=== PATIENT | female | born 1935 | race Caucasian/White ===

== ENCOUNTER 2017-06-14 00:08 | Emergency (ER) | payer OTHER, BC ==
[2017-06-14 00:22] VITALS: BP 187/90; PULSE 70; TEMP 97.6; BMI 34.2
--- NOTE | 2017-06-14 00:42 | PDOC ---
History of Present Illness - General Chief Complaint: Laceration Stated Complaint: RIGHT LEG BLEEDING Time Seen by Provider: 06/14/17 00:39 - History of Present Illness Initial Comments: 06/14/17 00:39 Chief complaint bleeding to right ankle History of present illness: 82 years old past medical history significant for hypertension, prediabetes, not on any anticoagulation presents emergency department with bleeding to right ankle. Patient has had this problem before she states that she has very thin skin and varicose veins and sometimes after scratching she develops bleeding. She developed bleeding after scratching her right ankle this evening. Did not stop with time came to the emergency Department. Upon arrival to the emergency department bleeding is stopped. No dizziness lightheadedness no chest pain or shortness of breath symptoms were mild intermittent stopped with time. Past History - Past Medical History Allergies/Adverse Reactions: Allergies Allergy/AdvReac Type Severity Reaction Status Date / Time morphine AdvReac Mild Nausea Verified 06/14/17 00:20 Home Medications: Ambulatory Orders Aspirin [ASA -] 81 mg PO DAILY 05/14/13 Meclizine HCl [Antivert -] 25 mg PO PRN 05/14/13 Olmesartan/Hydrochlorothiazide [Benicar Hct 40-25 mg Tablet] 1 each PO DAILY 03/29 Omeprazole 40 mg PO DAILY 05/14/13 Trospium Chloride 20 mg PO BID 05/14/13 metFORMIN HCL [Glucophage -] 500 mg PO DAILY 05/14/13 Meclizine HCl [Antivert -] 25 mg PO BID #0 tablet 05/15/13 Metoprolol Succinate 100 mg PO DAILY 05/15/13 Diabetes: Yes (borderline no meds) HTN: Yes Hypercholesterolemia: Yes - Suicide/Smoking/Psychosocial Hx Smoking History: Never smoked Have you smoked in the past 12 months: No Information on smoking cessation initiated: No Hx Alcohol Use: No Drug/Substance Use Hx: No Substance Use Type: None Review of Systems - Review of Systems Comments:: 06/14/17 00:40 ROS: A complete review of 10 out of 10 review of systems is taken and is negative apart from what is previously mentioned below and in the HPI. *Physical Exam - Vital Signs Last Vital Signs Temp Pulse Resp BP Pulse Ox 97.6 F 70 18 187/90 96 06/14/17 00:20 06/14/17 00:20 06/14/17 00:20 06/14/17 00:20 06/14/17 00:20 - Physical Exam Comments: 06/14/17 00:40 Vitals: Triage Vital signs reviewed General Appearance: no acute distress, well nourished well developed, Cardiac: Regular rate and rhythym, no murmurs, no rubs, no gallops, Lungs: Clear to auscultation bilateral, good air movement bilaterally, Abdomen: Soft, non distended, normal bowel sounds, non tender to palpation Genitourinary: Rectal: Exam deferred Extremities: Full range of motion to all extremities, no cyanosis, clubbing, or edema Skin: Warm and dry, no rashes or lesions, dried blood noted to right ankle. No laceration. Very superficial abrasion to skin in the proximity of varicose veins. No active bleeding. Psych: normal mood, normal affect Medical Decision Making - Medical Decision Making 06/14/17 00:41 Bleeding stopped with no intervention. No indication for suturing at this time. Bacitracin gauze and slight pressure dressing placed. Patient instructed to leave on for 24 hours if rebleeding recurs they will try pressure dressing at home otherwise he'll return to the emergency department Findings, the need for follow-up and strict return instructions discussed with patient and family. *DC/Admit/Observation/Transfer Diagnosis at time of Disposition: Bleeding - Discharge Dispostion Disposition: HOME Condition at time of disposition: Improved Admit: No - Referrals - Patient Instructions Additional Instructions: If rebleeding occurs, apply pressure dressing as instructed. If it does not stop at that return to the emergency department, follow up with your doctor next week. Return to ED for any concerns. - Post Discharge Activity
== END 2017-06-14 01:00 | disposition home or self-care (01) ==
LOC: JER 00:08
DX: R23.3 Spontaneous ecchymoses (principal); I10 Essential (primary) hypertension; E11.9 Type 2 diabetes mellitus without complications; E78.00 Pure hypercholesterolemia, unspecified
CPT/HCPCS: 99281-25

== ENCOUNTER 2017-09-12 20:51 | Inpatient (IN) | payer OTHER, BC ==
--- NOTE | 2017-09-12 21:07 | PDOC ---
History of Present Illness - General History Source: Patient Exam Limitations: No Limitations - History of Present Illness Initial Comments: 09/12/17 21:27 The patient is a 82 year old female with a significant PMH of HLD, HTN, and borderline DM who presents to the emergency department with two day history of left leg swelling and recent lower back pain. The patient is complaining of erythema to the left leg and states the left leg swelling is worsening over the past two days. The patient denies any trauma to the left leg. Patient denies recent travel. The patient states she typically sits in her couch with minimal movement throughout the day. The patient is also complaining of lower back pain secondary to a surgery for her urinary incontinence. The patient denies chest pain, shortness of breath, headache and dizziness. Denies fever, chills, nausea, vomit, diarrhea and constipation. Denies dysuria, frequency, urgency and hematuria. Allergies: morphine Social history: No reported alcohol, drug, or cigarette use. <Carlie Abdalla - Last Filed: 09/12/17 21:49> <Lashay Bernal - Last Filed: 09/12/17 23:56> - General Stated Complaint: LEFT LEG SWELLING Time Seen by Provider: 09/12/17 21:05 Past History <Carlie Abdalla - Last Filed: 09/12/17 21:49> - Past Medical History Diabetes: Yes (borderline no meds) HTN: Yes Hypercholesterolemia: Yes - Suicide/Smoking/Psychosocial Hx Smoking History: Never smoked Have you smoked in the past 12 months: No Hx Alcohol Use: No Drug/Substance Use Hx: No Substance Use Type: None <Lashay Bernal - Last Filed: 09/12/17 23:56> - Past Medical History Allergies/Adverse Reactions: Allergies Allergy/AdvReac Type Severity Reaction Status Date / Time morphine AdvReac Mild Nausea Verified 09/12/17 21:08 Home Medications: Ambulatory Orders Aspirin [ASA -] 81 mg PO DAILY 05/14/13 Meclizine HCl [Antivert -] 25 mg PO PRN 05/14/13 Olmesartan/Hydrochlorothiazide [Benicar Hct 40-25 mg Tablet] 1 each PO DAILY 03/29 Omeprazole 40 mg PO DAILY 05/14/13 Trospium Chloride 20 mg PO BID 05/14/13 metFORMIN HCL [Glucophage -] 500 mg PO DAILY 05/14/13 Metoprolol Succinate 100 mg PO DAILY 05/15/13 Review of Systems - Review of Systems Able to Perform ROS?: Yes Comments:: 09/12/17 21:42 ADULT ROS GENERAL/CONSTITUTIONAL: No fever or chills. No weakness. HEAD, EYES, EARS, NOSE AND THROAT: No change in vision. No ear pain or discharge. No sore throat. CARDIOVASCULAR: No chest pain or shortness of breath. RESPIRATORY: No cough, wheezing, or hemoptysis. GASTROINTESTINAL: No nausea, vomiting, diarrhea or constipation. GENITOURINARY: No dysuria, frequency, or change in urination. MUSCULOSKELETAL: (+) Left leg swelling. (+) Lower back pain. No joint or muscle pain. No neck pain. SKIN: No rash NEUROLOGIC: No headache, vertigo, loss of consciousness, or change in strength/ sensation. ENDOCRINE: No increased thirst. No abnormal weight change. HEMATOLOGIC/LYMPHATIC: No anemia, easy bleeding, or history of blood clots. ALLERGIC/IMMUNOLOGIC: No hives or skin allergy. <Carlie Abdalla - Last Filed: 09/12/17 21:49> *Physical Exam - Physical Exam Comments: 09/12/17 21:43 ADULT EXAM GENERAL: Awake, alert, and fully oriented, in no acute distress HEAD: No signs of trauma EYES: PERRLA, EOMI, sclera anicteric, conjunctiva clear ENT: Auricles normal inspection, hearing grossly normal, nares patent, oropharynx clear without exudates. Moist mucosa NECK: Normal ROM, supple, no lymphadenopathy, JVD, or masses LUNGS: Breath sounds equal, clear to auscultation bilaterally. No wheezes, and no crackles HEART: Regular rate and rhythm, normal S1 and S2, no murmurs, rubs or gallops ABDOMEN: Soft, nontender, normoactive bowel sounds. No guarding, no rebound. No masses EXTREMITIES: (+) Left leg edema and erythema. Normal range of motion. No clubbing or cyanosis. No cord or tenderness NEUROLOGICAL: Cranial nerves II through XII grossly intact. Normal speech, normal gait SKIN: Warm, Dry, normal turgor, no rashes or lesions noted. <Carlie Abdalla - Last Filed: 09/12/17 21:49> ED Treatment Course - LABORATORY CBC & Chemistry Diagram: 09/12/17 22:53 09/12/17 22:53 <Lashay Bernal - Last Filed: 09/12/17 23:56> Medical Decision Making - Medical Decision Making 09/12/17 21:[address] Christiano Sierra (vascular surgery). <Carlie Abdalla - Last Filed: 09/12/17 21:49> - Medical Decision Making 09/12/17 23:[address] Sierra who tells me heparin drip for now. Consult request for Dr. Dinero tomorrow, as Dr Vázquez out of town. 09/12/17 23:56 Hospitalist aware of the patient, h want her to be on med surg obs. He will switch her to eliquis. <Lashay Bernal - Last Filed: 09/12/17 23:56> *DC/Admit/Observation/Transfer - Attestations Scribe Attestion: 09/12/17 21:46 Documentation prepared by Carlie Abdalla, acting as medical laboratory manager for Lashay Bernal MD. <Carlie Abdalla - Last Filed: 09/12/17 21:49> - Discharge Dispostion Decision to Admit order: Yes <Lashay Bernal - Last Filed: 09/12/17 23:56> Diagnosis at time of Disposition: Deep vein thrombosis (DVT) of popliteal vein of left lower extremity, Femoral vein, deep venous thrombosis - Discharge Dispostion Condition at time of disposition: Guarded - Referrals Referrals: Nahum Palacio MD [Primary Care Provider] -
[2017-09-12] MEDS ORDERED: HEPARIN NA (PORCINE) 5,000 UNITS/ML 1ML VIAL IVPUSH PRN (21:46)
[2017-09-12] MEDS ORDERED: HEPARIN NA (PORCINE) 5,000 UNITS/ML 1ML VIAL IVPUSH ONE (21:46)
[2017-09-12] MEDS ORDERED: HEPARIN - 25,000 UNIT in SODIUM CHLORIDE 495 ML IV SCH (22:00)
[2017-09-12] MEDS ORDERED: HEPARIN NA (PORCINE) 5,000 UNITS/ML 1ML VIAL ONE (22:33)
[2017-09-12] MEDS ORDERED: HEPARIN INFUSION - 25,000 UNITS/500 ML INFUS.BAG IVPB ONE (22:33)
[2017-09-12] MEDS ORDERED: morphine CARPU-JECT 2 MG/1 ML DISP.SYRIN IVPUSH ONE (22:51)
[2017-09-12 23:05] LABS: BASO % 0.4 % (0-2.0); EOS % 1.4 % (0-4.5); HEMATOCRIT 37.1 % (32.4-45.2); HEMOGLOBIN 12.5 GM/dL (10.7-15.3); LYMPH % 9.6 % (8-40); MCH 32.3 pg (25.7-33.7); MCHC 33.6 g/dl (32.0-36.0); MEAN PLT VOLUME 8.3 fl (7.5-11.1); MONO % 11.2 % (3.8-10.2); NEUT % 77.4 % (42.8-82.8); PLATELET COUNT 171 K/MM3 (134-434); RBC 3.87 M/mm3 (3.60-5.2); RDW 13.8 % (11.6-15.6); WHITE BLOOD COUNT 10.6 K/mm3 (4.0-10.0)
[2017-09-12] MEDS ORDERED: MORPHINE SULFATE 2 MG/ML VIAL ONE (23:07)
[2017-09-12 23:23] LABS: INR 1.14 (0.82-1.09); PROTHROMBIN TIME (PATIENT) 12.9 SEC (9.7-13.0)
[2017-09-12 23:26] LABS: ACTIVATED PTT 24.2 SECONDS (25.2-36.5)
[2017-09-12 23:30] LABS: ALBUMIN 3.7 g/dl (3.4-5.0); ANION GAP 9 (8-16); BILIRUBIN,TOTAL 0.9 mg/dL (0.2-1.0); BLOOD UREA NITROGEN 27 mg/dL (7-18); CHLORIDE 106 mmol/L (98-107); CO2 24 mmol/L (21-32); CREATININE 1.4 mg/dL (0.55-1.02); GLUCOSE,RANDOM 143 mg/dL (74-106); POTASSIUM 4.4 mmol/L (3.5-5.1); SGOT/AST 14 U/L (15-37); SGPT/ALT 19 U/L (12-78); SODIUM 139 mmol/L (136-145); TOT PROT 7.2 g/dl (6.4-8.2)
[2017-09-12 23:31] LABS: ALK PHOS 78 U/L (45-117)
--- NOTE | 2017-09-13 00:09 | HP ---
Admitting History and Physical - Primary Care Physician PCP: Nahum Palacio - Admission Chief Complaint: Left leg swelling History of Present Illness: 82F with HTN HLD DM2 p/w left leg swelling over past day. She has had difiiculty walking as well since the afternoon. Has had a DVT in the same leg about 20 years ago, treated short term coumadin. recently went to [facility] about [address] 3 wks ago. no sob or chest pain. 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 Cardiovascular: Yes: HTN Rheumatology: Yes: Fibromyalgia Endocrine: Yes: Diabetes Mellitus - Smoking History Smoking history: Never smoked Have you smoked in the past 12 months: No - Alcohol/Substance Use Hx Alcohol Use: No Home Medications - Allergies Allergies/Adverse Reactions: Allergies Allergy/AdvReac Type Severity Reaction Status Date / Time morphine AdvReac Mild Nausea Verified 09/12/17 21:08 - Home Medications Home Medications: Ambulatory Orders Aspirin [ASA -] 81 mg PO DAILY 05/14/13 Meclizine HCl [Antivert -] 25 mg PO PRN 05/14/13 Olmesartan/Hydrochlorothiazide [Benicar Hct 40-25 mg Tablet] 1 each PO DAILY 03/29 Omeprazole 40 mg PO DAILY 05/14/13 Trospium Chloride 20 mg PO BID 05/14/13 metFORMIN HCL [Glucophage -] 500 mg PO DAILY 05/14/13 Metoprolol Succinate 100 mg PO DAILY 05/15/13 Review of Systems - Review of Systems Constitutional: denies: No Symptoms, Chills, Diaphoresis, Fever, Lethargy, Loss of Appetite, Malaise, Night Sweats, Unintentional Wgt. Loss, Weakness, Other Eyes: denies: No Symptoms, Blind Spots, Blurred Vision, Double Vision, Eye Pain , Floaters, Photophobia, Recent Change in Vision, Other HENT: denies: No Symptoms, Difficult Swallowing, Ear Discharge, Ear Pain, Epistaxis, Gingival Bleeding, Hearing Loss, Mouth Swelling, Nasal Congestion, Ocular Prosthesis, Throat Pain, Toothache, Ringing in Ears, Other Neck: denies: No Symptoms, Decreased ROM, Lumps, Pain on Movement, Stiffness, Swollen Glands, Tenderness, Other Cardiovascular: denies: No Symptoms, Chest Pain, Edema, Palpitations, Shortness of Breath, Other Respiratory: denies: No Symptoms, Cough, Exercise Intolerance, Hemoptysis, Orthopnea, PND, Snoring, SOB, SOB on Exertion, Wheezing, Other Gastrointestinal: denies: No Symptoms, Abdominal Pain, Bloating, Constipation, Diarrhea, Dysphagia, Indigestion, Melena, Nausea, Rectal Bleeding, Vomiting, Vomiting Blood, Other Genitourinary: denies: No Symptoms, Burning, Discharge, Dysuria, Flank Pain, Frequency, Hematuria, Incontinence, Lesions, Menses, Pain, Testicular Mass, Testicular Pain, Testicular Swelling, Urgency, Vaginal Bleeding, Other Physical Examination Vital Signs: Vital Signs Temperature 99.3 F 09/12/17 20:51 Pulse Rate 67 09/12/17 20:51 Respiratory Rate 18 09/12/17 20:51 Blood Pressure 109/51 09/12/17 20:51 O2 Sat by Pulse Oximetry (%) 97 09/12/17 20:51 Constitutional: Yes: Well Nourished, No Distress, Calm Eyes: Yes: WNL, Conjunctiva Clear, EOM Intact HENT: Yes: Atraumatic, Normocephalic Neck: Yes: Supple Cardiovascular: Yes: Regular Rate and Rhythm, Varicosities Respiratory: Yes: Regular, CTA Bilaterally Gastrointestinal: Yes: Normal Bowel Sounds, Soft Extremities: Yes: Other (left leg is swollen, mildly erythematous, with calf tenderness. 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 admit to Obs start Xarelto 15 BID for next 21 days CrCl is 39 in the morning reassess her ability to walk, can likely be dc home with her family support HTN - continue home meds DM2 continue metformin Visit type - Emergency Visit Emergency Visit: Yes Care time: The patient presented to the Emergency Department on the above date and was hospitalized for further evaluation of their emergent condition. - New Patient This patient is new to me today: Yes Date on this admission: 09/13/17 - Critical Care Critical Care patient: No Hospitalist Screening - Colonoscopy Questionnaire Colonoscopy Questionnaire: Colonoscopy Questionnaire - Patient: 50 - 75 years old and never had a screening colonoscopy: No History of colon or rectal polyps, or CA: Unknown History of IBD, Crohn's disease or UC: Unknown History of abdominal radiation therapy as a child: Unknown - Relative: 1 with colon or rectal CA, or polyps at age 60 or younger: Unknown Colon or rectal CA diagnosed at age 45 or younger: Unknown Multiple relatives with colon or rectal CA: Unknown - Outcome: Screening Result: Negative Screen
[2017-09-13] MEDS: RIVAROXABAN 15 MG TABLET PO SCH ×2 (02:29→10:42)
[2017-09-13] MEDS ORDERED: metFORMIN HCL 500 MG TABLET (FP) PO SCH (07:00)
[2017-09-13 08:34] LABS: BASO % 0.4 % (0-2.0); HEMATOCRIT 37.1 % (32.4-45.2); HEMOGLOBIN 12.4 GM/dL (10.7-15.3); LYMPH % 13.8 % (8-40); MCH 32.4 pg (25.7-33.7); MCHC 33.3 g/dl (32.0-36.0); MEAN CELL VOLUME 97.2 fl (80-96); MEAN PLT VOLUME 8.7 fl (7.5-11.1); MONO % 15.4 % (3.8-10.2); NEUT % 68.4 % (42.8-82.8); PLATELET COUNT 160 K/MM3 (134-434); RBC 3.82 M/mm3 (3.60-5.2); RDW 13.9 % (11.6-15.6); WHITE BLOOD COUNT 8.3 K/mm3 (4.0-10.0)
[2017-09-13 08:53] LABS: CHLORIDE 105 mmol/L (98-107); POTASSIUM 4.8 mmol/L (3.5-5.1); SODIUM 139 mmol/L (136-145)
[2017-09-13 09:21] LABS: ALBUMIN 3.3 g/dl (3.4-5.0); ALK PHOS 73 U/L (45-117); ANION GAP 9 (8-16); BILIRUBIN,TOTAL 0.8 mg/dL (0.2-1.0); BLOOD UREA NITROGEN 31 mg/dL (7-18); CALCIUM 8.8 mg/dL (8.5-10.1); CO2 25 mmol/L (21-32); CREATININE 1.3 mg/dL (0.55-1.02); GLUCOSE,RANDOM 129 mg/dL (74-106); MAGNESIUM 1.6 mg/dL (1.8-2.4); SGOT/AST 13 U/L (15-37); SGPT/ALT 17 U/L (12-78); TOT PROT 6.8 g/dl (6.4-8.2)
--- NOTE | 2017-09-13 10:35 | CONSULT ---
Consult - History of Present Illness History of Present Illness: 82 year old woman with increasing left leg pain and swelling for several days. She came to ER when she couldn't walk. SCan shows extensive DVT of leg. She had a DVT in the same leg years ago and was treated with COumadin for several months. 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 Cardio/Vascular: Yes: HTN ...: No Rheumatology: Yes: Fibromyalgia Endocrine: Yes: Diabetes Mellitus - Alcohol/Substance Use Hx Alcohol Use: No - Smoking History Smoking history: Never smoked Have you smoked in the past 12 months: No Home Medications - Allergies Allergies/Adverse Reactions: Allergies Allergy/AdvReac Type Severity Reaction Status Date / Time morphine AdvReac Mild Nausea Verified 09/12/17 21:08 - Home Medications Home Medications: Ambulatory Orders Aspirin [ASA -] 81 mg PO DAILY 05/14/13 Meclizine HCl [Antivert -] 25 mg PO PRN 05/14/13 Olmesartan/Hydrochlorothiazide [Benicar Hct 40-25 mg Tablet] 1 each PO DAILY 03/29 Omeprazole 40 mg PO DAILY 05/14/13 Trospium Chloride 20 mg PO BID 05/14/13 metFORMIN HCL [Glucophage -] 500 mg PO DAILY 05/14/13 Metoprolol Succinate 100 mg PO DAILY 05/15/13 Physical Exam Vital Signs: Vital Signs Temperature 97.5 F L 09/13/17 05:44 Pulse Rate 67 09/13/17 05:44 Respiratory Rate 20 09/13/17 05:44 Blood Pressure 133/68 09/13/17 05:44 O2 Sat by Pulse Oximetry (%) 97 09/13/17 05:00 Constitutional: Yes: No Distress Respiratory: Yes: Regular Gastrointestinal: Yes: Soft Edema: Yes Edema: LLE: 4+ (Firm swelling thigh and calf) Labs: CBC, BMP 09/13/17 07:00 09/13/17 07:30 Problem List - Problems (1) Femoral vein, deep venous thrombosis Assessment/Plan: Extensive DVT, Duplex is suboptimal with no imaging of iliac and deep femoral veins Swelling is severe and she may be a candidate for thrombolysis if there is no improvement in the next 48 hours. Rec: CTA with venous phase to image iliac veins Hold Xarelto and start IV Heparin Leg elevation If swelling does not improve she will need thrombolysis of the left leg veins. Code(s): I82.419 - ACUTE EMBOLISM AND THROMBOSIS OF UNSPECIFIED FEMORAL VEIN Qualifiers: Chronicity: acute Laterality: left Qualified Code(s): I82.412 - Acute embolism and thrombosis of left femoral vein
[2017-09-13] MEDS ORDERED: HEPARIN NA (PORCINE) 5,000 UNITS/ML 1ML VIAL IVPUSH PRN (10:36)
[2017-09-13] MEDS: PANTOPRAZOLE 40 MG TABLET (FP) PO SCH (10:42)
[2017-09-13] MEDS: VALSARTAN 160 MG TABLET (UD) PO SCH (10:42)
[2017-09-13] MEDS: HYDROCHLOROTHIAZIDE 25 MG TABLET (FP) PO SCH (10:42)
[2017-09-13] MEDS: HEPARIN INFUSION - 25,000 UNITS/500 ML INFUS.BAG IV SCH ×2 (12:00→18:46)
--- NOTE | 2017-09-13 12:50 | PN ---
Progress Note, Physician Chief Complaint: C/O Left leg pain and swelling History of Present Illness: 82F with HTN HLD DM2 p/w left leg swelling over past day. She has had difficulty walking as well since the afternoon. Has had a DVT in the same leg about 20 years ago, treated short term coumadin. recently went to [facility] about [address] 3 wks ago. - Current Medication List Current Medications: Active Medications Heparin Sodium (Porcine) (Heparin -) 1,000 unit IVPUSH PRN PRN PRN Reason: Heparin Heparin Sodium (Porcine) (Heparin -) 5,000 unit IVPUSH PRN PRN PRN Reason: Heparin Heparin Sodium/Dextrose (Heparin Infusion -) 25,000 units in 500 mls @ 16 mls/ hr IV TITR [facility]; Protocol Sodium Chloride (1/2 Normal Saline) 1,000 mls @ 60 mls/hr IV ASDIR [facility] Metoprolol Succinate (Toprol Xl -) 100 mg PO DAILY [facility] Last Admin: 09/13/17 10:42 Dose: 100 mg Pantoprazole Sodium (Protonix -) 40 mg PO DAILY [facility] Last Admin: 09/13/17 10:42 Dose: 40 mg Valsartan (Diovan -) 320 mg PO DAILY [facility] Last Admin: 09/13/17 10:42 Dose: 320 mg - Objective Vital Signs: Vital Signs Temperature 97.5 F L 09/13/17 05:44 Pulse Rate 67 09/13/17 05:44 Respiratory Rate 20 09/13/17 05:44 Blood Pressure 133/68 09/13/17 05:44 O2 Sat by Pulse Oximetry (%) 97 09/13/17 05:00 Elderly F not in distress c/o Left LE Pain and swelling HEENT: Mm moist, o anemia, PERRLA EOMI NECK: No JVd No Bruit CHEST: CTA B/L CVS; S1S2 R no m/g/r ABD; No distention, non tender Bs + EXT: Left LE swelling and Tenderness 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 Code(s): I82.419 - ACUTE EMBOLISM AND THROMBOSIS OF UNSPECIFIED FEMORAL VEIN Qualifiers: Chronicity: acute Laterality: left Qualified Code(s): I82.412 - Acute embolism and thrombosis of left femoral vein (2) HTN (hypertension) Assessment/Plan: Well controlled cont home meds Code(s): I10 - ESSENTIAL (PRIMARY) HYPERTENSION (3) T2DM (type 2 diabetes mellitus) Assessment/Plan: Hold Metformin add Correction dose Lispro AC F/U HBa1C Code(s): E11.9 - TYPE 2 DIABETES MELLITUS WITHOUT COMPLICATIONS (4) Dehydration Assessment/Plan: Hold HCTZ F/U BMP IV Hydration. Code(s): E86.0 - DEHYDRATION
[2017-09-13] MEDS: SODIUM CHLORIDE 0.45% 1,000 ML IV SCH (13:41)
[2017-09-13] MEDS: INSULIN SLIDING SCALE (NOVOLOG) 1 VIAL SQ SCH (16:46)
[2017-09-13] MEDS ORDERED: MAGNESIUM 1GM/D5W - 1 GM/100 ML IVPB IVPB ONE (17:15)
[2017-09-13] MEDS: HEPARIN NA (PORCINE) 5,000 UNITS/ML 1ML VIAL IVPUSH PRN (18:46)
[2017-09-13] MEDS ORDERED: ACETAMINOPHEN 325 MG TABLET (FP) PO PRN (21:13)
[2017-09-14] MEDS: INSULIN SLIDING SCALE (NOVOLOG) 1 VIAL SQ SCH ×3 (07:02→17:35)
[2017-09-14 07:28] LABS: BASO % 0.5 % (0-2.0); EOS % 4.3 % (0-4.5); HEMATOCRIT 36.7 % (32.4-45.2); HEMOGLOBIN 12.4 GM/dL (10.7-15.3); LYMPH % 11.9 % (8-40); MCH 32.7 pg (25.7-33.7); MCHC 33.8 g/dl (32.0-36.0); MEAN CELL VOLUME 96.9 fl (80-96); MEAN PLT VOLUME 8.8 fl (7.5-11.1); MONO % 12.2 % (3.8-10.2); NEUT % 71.1 % (42.8-82.8); PLATELET COUNT 187 K/MM3 (134-434); RBC 3.78 M/mm3 (3.60-5.2); RDW 13.8 % (11.6-15.6); WHITE BLOOD COUNT 10.4 K/mm3 (4.0-10.0)
[2017-09-14 07:47] LABS: ANION GAP 8 (8-16); BLOOD UREA NITROGEN 28 mg/dL (7-18); CALCIUM 8.8 mg/dL (8.5-10.1); CHLORIDE 102 mmol/L (98-107); CO2 26 mmol/L (21-32); CREATININE 1.2 mg/dL (0.55-1.02); GLUCOSE,RANDOM 158 mg/dL (74-106); SODIUM 136 mmol/L (136-145)
--- NOTE | 2017-09-14 07:59 | PN ---
Progress Note (short form) - Note Progress Note: 82yo F h/o LLE DVT and swelling, pt seen at bedside. Pt states that she feels that the leg swelling is a little better especially in the foot, but that her leg is still painful, and she can only walk on it for a short time. Pt currently on heparin drip. Denies numbness or weakness. Decreased ROM due to pain. Last Vital Signs Temp Pulse Resp BP Pulse Ox 98.1 F 67 20 127/69 97 09/14/17 06:00 09/14/17 06:00 09/14/17 06:00 09/14/17 06:00 09/14/17 05:00 CBC, BMP 09/14/17 06:20 INR, PTT INR 1.14 (0.82-1.09) 09/12/17 22:53 PE: GEN: A&O x 3 Resp: breathing comfortably Ext: LLE shows diffuse edema + 2 pitting, pedal pulse +2, diffuse redness Problem List - Problems (1) Femoral vein, deep venous thrombosis Assessment/Plan: Plan -will follow up CT to evaluate clot burden on Left leg -continue heparin drip -Elevated leg -will continue to follow. Code(s): I82.419 - ACUTE EMBOLISM AND THROMBOSIS OF UNSPECIFIED FEMORAL VEIN Qualifiers: Chronicity: acute Laterality: left Qualified Code(s): I82.412 - Acute embolism and thrombosis of left femoral vein
[2017-09-14] MEDS: PANTOPRAZOLE 40 MG TABLET (FP) PO SCH (09:43)
[2017-09-14] MEDS: VALSARTAN 160 MG TABLET (UD) PO SCH (09:43)
[2017-09-14] MEDS: HYDROCHLOROTHIAZIDE 25 MG TABLET (FP) PO SCH (09:43)
[2017-09-14] MEDS: SODIUM CHLORIDE 0.45% 1,000 ML IV SCH (09:45)
--- NOTE | 2017-09-14 10:47 | EKG ---
Test Reason : Blood Pressure : / mmHG Vent. Rate : 061 BPM Atrial Rate : 061 BPM P-R Int : 200 ms QRS Dur : 080 ms QT Int : 442 ms P-R-T Axes : -18 -17 017 degrees QTc Int : 444 ms NORMAL SINUS RHYTHM NORMAL ECG WHEN COMPARED WITH ECG OF 14-MAY-2013 15:36, T WAVE VARIATION Confirmed by QUIN ADORNO MD ([id number]) on 09/14/2017 10:47:30 AM Referred By: Confirmed By:QUIN ADORNO MD
--- NOTE | 2017-09-14 12:52 | PN ---
Progress Note, Physician Chief Complaint: Ms Bhat says her leg feels slightly better than it did yesterday but is still very swollen and painful. No cp, sob, n/v - Current Medication List Current Medications: Active Medications Acetaminophen (Tylenol -) 650 mg PO Q8H PRN PRN Reason: FEVER Last Admin: 09/13/17 21:51 Dose: 650 mg Heparin Sodium (Porcine) (Heparin -) 1,000 unit IVPUSH PRN PRN PRN Reason: Heparin Last Admin: 09/13/17 18:46 Dose: 1,000 unit Heparin Sodium (Porcine) (Heparin -) 5,000 unit IVPUSH PRN PRN PRN Reason: Heparin Hydrochlorothiazide (Hctz -) 25 mg PO DAILY [facility] Last Admin: 09/14/17 09:43 Dose: 25 mg Heparin Sodium/Dextrose (Heparin Infusion -) 25,000 units in 500 mls @ 16 mls/ hr IV TITR [facility]; Protocol Last Titration: 09/14/17 09:44 Dose: 900 units/hr, 18 mls/hr Sodium Chloride (1/2 Normal Saline) 1,000 mls @ 60 mls/hr IV ASDIR [facility] Last Admin: 09/14/17 09:45 Dose: 60 mls/hr Insulin Aspart (Novolog Vial Sliding Scale -) 1 vial SQ TIDAC [facility]; Protocol Last Admin: 09/14/17 07:02 Dose: 2 unit Metoprolol Succinate (Toprol Xl -) 100 mg PO DAILY [facility] Last Admin: 09/14/17 09:43 Dose: 100 mg Pantoprazole Sodium (Protonix -) 40 mg PO DAILY [facility] Last Admin: 09/14/17 09:43 Dose: 40 mg Valsartan (Diovan -) 320 mg PO DAILY [facility] Last Admin: 09/14/17 09:43 Dose: 320 mg - Objective Vital Signs: Vital Signs Temperature 36.7 C 09/14/17 06:00 Pulse Rate 67 09/14/17 06:00 Respiratory Rate 20 09/14/17 06:00 Blood Pressure 127/69 09/14/17 06:00 O2 Sat by Pulse Oximetry (%) 97 09/14/17 05:00 Constitutional: Yes: No Distress, Calm, Obese Cardiovascular: Yes: Regular Rate and Rhythm. No: Gallop, Murmur, Rub Respiratory: Yes: Regular, CTA Bilaterally. No: Rales, Rhonchi, Wheezes Gastrointestinal: Yes: Normal Bowel Sounds, Soft. No: Distention, Tenderness Extremities: Yes: Erythema (LLE) Edema: LLE: 2+ Labs: CBC, BMP 09/14/17 06:20 09/14/17 06:20 INR, PTT INR 1.14 (0.82-1.09) 09/12/17 22:53 Problem List - Problems (1) Femoral vein, deep venous thrombosis Assessment/Plan: -appreciate vascular surgery assistance -on heparin gtt -may benefit from thrombolysis Code(s): I82.419 - ACUTE EMBOLISM AND THROMBOSIS OF UNSPECIFIED FEMORAL VEIN Qualifiers: Chronicity: acute Laterality: left Qualified Code(s): I82.412 - Acute embolism and thrombosis of left femoral vein (2) HTN (hypertension) Assessment/Plan: -continue diovan, HCTZ, and toprol xl -controlled Code(s): I10 - ESSENTIAL (PRIMARY) HYPERTENSION (3) T2DM (type 2 diabetes mellitus) Assessment/Plan: -continue diabetic diet and SSI Code(s): E11.9 - TYPE 2 DIABETES MELLITUS WITHOUT COMPLICATIONS
[2017-09-14] MEDS ORDERED: INSULIN (NOVOLOG) ASPART 100 UNITS/ML 10ML VIAL ONE (14:21)
[2017-09-14] MEDS: HEPARIN INFUSION - 25,000 UNITS/500 ML INFUS.BAG IV SCH (14:45)
--- NOTE | 2017-09-14 21:45 | PN ---
Progress Note (short form) - Note Progress Note: Leg swelling and pain not improved. CT scan shows clot from the distal IVC filter to the proximal femoral vein. It is unlikely that she will have significant spontaneous resolution of this large clot burden. I have recommended catheter directed thrombolysis and iliac stenting if needed. Procedure to be scheduled for tomorrow afternoon with overnight TPA drip. Problem List - Problems (1) Femoral vein, deep venous thrombosis Code(s): I82.419 - ACUTE EMBOLISM AND THROMBOSIS OF UNSPECIFIED FEMORAL VEIN Qualifiers: Chronicity: acute Laterality: left Qualified Code(s): I82.412 - Acute embolism and thrombosis of left femoral vein
[2017-09-15] MEDS: INSULIN SLIDING SCALE (NOVOLOG) 1 VIAL SQ SCH ×2 (06:29→11:45)
[2017-09-15 07:38] LABS: HEMATOCRIT 33.7 % (32.4-45.2); HEMOGLOBIN 11.4 GM/dL (10.7-15.3); MCH 32.8 pg (25.7-33.7); MCHC 33.8 g/dl (32.0-36.0); MEAN PLT VOLUME 8.7 fl (7.5-11.1); PLATELET COUNT 182 K/MM3 (134-434); RBC 3.48 M/mm3 (3.60-5.2); RDW 13.7 % (11.6-15.6); WHITE BLOOD COUNT 9.8 K/mm3 (4.0-10.0)
--- NOTE | 2017-09-15 07:55 | SPA.PREOP ---
- PRE-OP NOTE Dx: DVT with extensive clot burden Planned Procedure: Venogram with thrombolysis/declot Surgeon: Rosette Consent: Will be obtained after surgeon explained all risks, benefits and alternatives. Opportunity for questions. Last Vital Signs Temp Pulse Resp BP Pulse Ox 98.3 F 81 81 H 127/53 95 09/15/17 06:00 09/15/17 06:00 09/15/17 06:00 09/15/17 06:00 09/14/17 21:00 Lab Results WBC 9.8 K/mm3 (4.0-10.0) 09/15/17 06:15 RBC 3.48 M/mm3 (3.60-5.2) L 09/15/17 06:15 Hgb 11.4 GM/dL (10.7-15.3) 09/15/17 06:15 Hct 33.7 % (32.4-45.2) 09/15/17 06:15 MCV 97.0 fl (80-96) H 09/15/17 06:15 MCHC 33.8 g/dl (32.0-36.0) 09/15/17 06:15 RDW 13.7 % (11.6-15.6) 09/15/17 06:15 Plt Count 182 K/MM3 (134-434) 09/15/17 06:15 Sodium 136 mmol/L (136-145) 09/14/17 06:20 Potassium 4.0 mmol/L (3.5-5.1) 09/14/17 06:20 Chloride 102 mmol/L (98-107) 09/14/17 06:20 Carbon Dioxide 26 mmol/L (21-32) 09/14/17 06:20 Anion Gap 8 (8-16) 09/14/17 06:20 BUN 28 mg/dL (7-18) H 09/14/17 06:20 Creatinine 1.2 mg/dL (0.55-1.02) H 09/14/17 06:20 Random Glucose 158 mg/dL (74-106) H 09/14/17 06:20 Calcium 8.8 mg/dL (8.5-10.1) 09/14/17 06:20 INR 1.14 (0.82-1.09) 09/12/17 22:53 - IMAGING Cat Scan: Report Reviewed - ASSESSMENT/PLAN 1. Make NPO after midnight except po meds 2. GI/DVT PPX 3. Medical optimization / clearance Problem List - Problems (1) Femoral vein, deep venous thrombosis Code(s): I82.419 - ACUTE EMBOLISM AND THROMBOSIS OF UNSPECIFIED FEMORAL VEIN Qualifiers: Chronicity: acute Laterality: left Qualified Code(s): I82.412 - Acute embolism and thrombosis of left femoral vein
[2017-09-15 08:01] LABS: CHLORIDE 101 mmol/L (98-107); POTASSIUM 4.1 mmol/L (3.5-5.1); SODIUM 136 mmol/L (136-145)
[2017-09-15 08:15] LABS: ANION GAP 13 (8-16); BLOOD UREA NITROGEN 25 mg/dL (7-18); CALCIUM 8.4 mg/dL (8.5-10.1); CO2 22 mmol/L (21-32); CREATININE 1.1 mg/dL (0.55-1.02); GLUCOSE,RANDOM 141 mg/dL (74-106); MAGNESIUM 1.5 mg/dL (1.8-2.4); PHOSPHOROUS 3.3 mg/dL (2.5-4.9)
[2017-09-15] MEDS: PANTOPRAZOLE 40 MG TABLET (FP) PO SCH (09:48)
[2017-09-15] MEDS: HYDROCHLOROTHIAZIDE 25 MG TABLET (FP) PO SCH (09:49)
[2017-09-15] MEDS: VALSARTAN 160 MG TABLET (UD) PO SCH (09:49)
[2017-09-15] MEDS: SODIUM CHLORIDE 0.45% 1,000 ML IV SCH (09:50)
[2017-09-15] MEDS: HEPARIN INFUSION - 25,000 UNITS/500 ML INFUS.BAG IV SCH (09:50)
[2017-09-15 10:21] LABS: HEMATOCRIT 32.8 % (32.4-45.2); HEMOGLOBIN 11.1 GM/dL (10.7-15.3); MCH 32.6 pg (25.7-33.7); MCHC 33.9 g/dl (32.0-36.0); MEAN CELL VOLUME 96.4 fl (80-96); MEAN PLT VOLUME 8.8 fl (7.5-11.1); PLATELET COUNT 190 K/MM3 (134-434); RDW 13.6 % (11.6-15.6)
[2017-09-15] MEDS: HEPARIN NA (PORCINE) 5,000 UNITS/ML 1ML VIAL IVPUSH PRN (10:29)
[2017-09-15] MEDS ORDERED: MAGNESIUM SULF 50% (8.12 MEQ/2 ML-1 GM VIAL) IVPB ONE (12:00)
[2017-09-15] MEDS ORDERED: MAGNESIUM 2GM/50ML STERILE WATER IVPB IVPB ONE (12:15)
--- NOTE | 2017-09-15 13:32 | PN ---
Progress Note, Physician Chief Complaint: Ms Bhat says her leg is unchanged. No cp, sob, n/v. Still with pain/swelling/ weakness of LLE. - Current Medication List Current Medications: Active Medications Acetaminophen (Tylenol -) 650 mg PO Q8H PRN PRN Reason: FEVER Last Admin: 09/13/17 21:51 Dose: 650 mg Heparin Sodium (Porcine) (Heparin -) 1,000 unit IVPUSH PRN PRN PRN Reason: Heparin Last Admin: 09/15/17 10:29 Dose: 1,000 unit Heparin Sodium (Porcine) (Heparin -) 5,000 unit IVPUSH PRN PRN PRN Reason: Heparin Hydrochlorothiazide (Hctz -) 25 mg PO DAILY [facility] Last Admin: 09/15/17 09:49 Dose: 25 mg Heparin Sodium/Dextrose (Heparin Infusion -) 25,000 units in 500 mls @ 16 mls/ hr IV TITR [facility]; Protocol Last Admin: 09/15/17 09:50 Dose: 1,000 units/hr, 20 mls/hr Sodium Chloride (1/2 Normal Saline) 1,000 mls @ 60 mls/hr IV ASDIR [facility] Last Admin: 09/15/17 09:50 Dose: Not Given Insulin Aspart (Novolog Vial Sliding Scale -) 1 vial SQ TIDAC [facility]; Protocol Last Admin: 09/15/17 11:45 Dose: Not Given Metoprolol Succinate (Toprol Xl -) 100 mg PO DAILY [facility] Last Admin: 09/15/17 09:49 Dose: 100 mg Pantoprazole Sodium (Protonix -) 40 mg PO DAILY [facility] Last Admin: 09/15/17 09:48 Dose: 40 mg Valsartan (Diovan -) 320 mg PO DAILY [facility] Last Admin: 09/15/17 09:49 Dose: 320 mg - Objective Vital Signs: Vital Signs Temperature 36.8 C 09/15/17 09:46 Pulse Rate 84 09/15/17 09:46 Respiratory Rate 18 09/15/17 09:46 Blood Pressure 127/62 09/15/17 09:46 O2 Sat by Pulse Oximetry (%) 97 09/15/17 09:45 Constitutional: Yes: No Distress, Calm, Obese Cardiovascular: Yes: Regular Rate and Rhythm. No: Gallop, Murmur, Rub Respiratory: Yes: Regular, CTA Bilaterally. No: Rales, Rhonchi, Wheezes Gastrointestinal: Yes: Normal Bowel Sounds, Soft. No: Distention, Tenderness Extremities: Yes: Erythema (LLE) Edema: LLE: 3+ Labs: CBC, BMP 09/15/17 10:02 09/15/17 06:15 INR, PTT INR 1.14 (0.82-1.09) 09/12/17 22:53 Problem List - Problems (1) Femoral vein, deep venous thrombosis Code(s): I82.419 - ACUTE EMBOLISM AND THROMBOSIS OF UNSPECIFIED FEMORAL VEIN Qualifiers: Chronicity: acute Laterality: left Qualified Code(s): I82.412 - Acute embolism and thrombosis of left femoral vein (2) HTN (hypertension) Code(s): I10 - ESSENTIAL (PRIMARY) HYPERTENSION (3) T2DM (type 2 diabetes mellitus) Code(s): E11.9 - TYPE 2 DIABETES MELLITUS WITHOUT COMPLICATIONS (4) Hypomagnesemia Code(s): E83.42 - HYPOMAGNESEMIA Assessment/Plan (1) Femoral vein, deep venous thrombosis Assessment/Plan: -continue heparin gtt -planning for thrombolysis today Code(s): I82.419 - ACUTE EMBOLISM AND THROMBOSIS OF UNSPECIFIED FEMORAL VEIN Qualifiers: Chronicity: acute Laterality: left Qualified Code(s): I82.412 - Acute embolism and thrombosis of left femoral vein (2) HTN (hypertension) Assessment/Plan: -continue diovan, HCTZ, and toprol xl -controlled Code(s): I10 - ESSENTIAL (PRIMARY) HYPERTENSION (3) T2DM (type 2 diabetes mellitus) Assessment/Plan: -continue diabetic diet and SSI Code(s): E11.9 - TYPE 2 DIABETES MELLITUS WITHOUT COMPLICATIONS (4) Hypomagnesemia -replace
[2017-09-15] MEDS ORDERED: HEPARIN NA (PORCINE) 5,000 UNITS/ML 1ML VIAL ONE (13:52)
[2017-09-15] MEDS ORDERED: HEPARIN INFUSION - 25,000 UNITS/500 ML INFUS.BAG IVPB ONE (15:02)
[2017-09-15] MEDS ORDERED: MIDAZOLAM HCL 2 MG/2 ML SINGLE DOSE VIAL ONE ×2 (15:33→16:38)
[2017-09-15] MEDS ORDERED: ALTEPLASE (CATHFLO) 10 MG in SODIUM CHLORIDE 100 ML CVP ONE (16:30)
[2017-09-15] MEDS ORDERED: METOPROLOL TARTRATE 5 MG/5 ML VIAL ONE (17:00)
[2017-09-15] MEDS ORDERED: SODIUM CHLORIDE CVP SCH (17:30)
[2017-09-15] MEDS ORDERED: ALTEPLASE CVP SCH (17:30)
[2017-09-15] MEDS: SODIUM CHLORIDE CVP SCH ×2 (17:40→21:45)
[2017-09-15] MEDS: HEPARIN INFUSION - 25,000 UNITS/500 ML INFUS.BAG IVPB SCH ×2 (17:40→21:45)
[2017-09-15] MEDS: ALTEPLASE CVP SCH ×2 (17:40→21:45)
--- NOTE | 2017-09-15 17:44 | OP ---
Operative Note - Note: Operative Date: 09/15/17 Pre-Operative Diagnosis: Thrombosis of diatal IVC, left iliac and femoral veins Operation: Venogram left leg, mechanicopharmacologic thrombolysis, placement of thrombolysis catheter Findings: Thrombotic occlusion of the left common femoral, external and internal iliac vein and distal IVC and filter Patent IVC proximal to filter Post-Operative Diagnosis: Same as Pre-op Surgeon: Kevin Dinero Anesthesiologist/GAMING CAGE CASHIER: Pippa Mann Anesthesia: Fractional Estimated Blood Loss (mls): 100
[2017-09-15] MEDS: LABETALOL HCL 5 MG/1 ML (100MG/20 ML VIAL) IVPUSH ONE ×2 (17:55→18:20)
[2017-09-15] MEDS ORDERED: ONDANSETRON 4 MG/2 ML VIAL IVPUSH PRN (17:55)
[2017-09-15] MEDS ORDERED: LACTATED RINGERS SOLUTION 1,000 ML IV SCH (18:00)
[2017-09-15] MEDS ORDERED: ACETAMINOPHEN INJECTION 100 ML IVPB ONE (18:12)
[2017-09-15] MEDS ORDERED: ACETAMINOPHEN 1000 MG/100 ML VIAL (NON FORMULARY) IVPB ONE ×2 (18:15→21:30)
[2017-09-15] MEDS ORDERED: ACETAMINOPHEN 325 MG TABLET (FP) PO PRN (18:31)
[2017-09-15] MEDS ORDERED: LABETALOL HCL 5 MG/1 ML (100MG/20 ML VIAL) IVPUSH ONE (21:30)
--- NOTE | 2017-09-15 21:48 | CONSULT ---
Consultation: REQUESTING PROVIDER: CONSULT REQUEST: We have been asked to medically evaluate this patient for ( intensive care). HISTORY OF PRESENT ILLNESS: 82F with HTN HLD DM2 p/w left leg swelling over past day. She has had difiiculty walking as well since the afternoon. Has had a DVT in the same leg about 20 years ago, treated short term coumadin. recently went to [facility] about [address] 3 wks ago. no sob or chest pain. leg is minimally painful when she is not walking. patinet found to have Thrombotic occlusion of the left common femoral, external and internal iliac vein and distal IVC and filter. mechanicopharmacologic thrombolysis, placement of thrombolysis catheter was done on 09/15/17 PHYSICAL EXAMINATION Vital Signs - 24 hr 09/14/17 09/15/17 09/15/17 22:23 06:00 09:45 Temperature 98.5 F 98.3 F Pulse Rate 63 81 Respiratory 20 81 H Rate Blood Pressure 115/56 127/53 O2 Sat by Pulse 97 Oximetry (%) 09/15/17 09/15/17 09/15/17 09:46 17:39 17:55 Temperature 98.2 F 99.1 F Pulse Rate 84 97 H 86 Respiratory 18 17 18 Rate Blood Pressure 127/62 182/100 187/95 O2 Sat by Pulse 95 97 Oximetry (%) 09/15/17 09/15/17 09/15/17 18:10 18:25 18:40 Temperature Pulse Rate 89 91 H 95 H Respiratory 18 16 16 Rate Blood Pressure 177/82 185/95 173/83 O2 Sat by Pulse 96 99 97 Oximetry (%) 09/15/17 09/15/17 09/15/17 18:55 19:10 19:25 Temperature Pulse Rate 96 H 99 H 99 H Respiratory 16 18 18 Rate Blood Pressure 167/85 161/87 162/83 O2 Sat by Pulse 100 97 100 Oximetry (%) 09/15/17 09/15/17 09/15/17 19:40 19:55 20:10 Temperature Pulse Rate 98 H 99 H 98 H Respiratory 16 21 18 Rate Blood Pressure 149/85 141/82 137/81 O2 Sat by Pulse 95 95 97 Oximetry (%) 09/15/17 09/15/17 09/15/17 20:25 20:40 20:55 Temperature Pulse Rate 98 H 97 H 97 H Respiratory 16 16 18 Rate Blood Pressure 140/76 140/72 140/72 O2 Sat by Pulse 96 94 L 96 Oximetry (%) 09/15/17 09/15/17 21:10 21:25 Temperature 98.1 F Pulse Rate 91 H 91 H Respiratory 14 16 Rate Blood Pressure 143/71 143/74 O2 Sat by Pulse 97 95 Oximetry (%) GENERAL: Awake, alert, and fully oriented, in no acute distress. EYES:conjunctiva clear. EARS, NOSE, THROAT: Moist mucous membranes. LUNGS: Breath sounds equal, clear to auscultation bilaterally. No wheezes, and no crackles. No accessory muscle use. HEART: irregular rate, normal S1 and S2 without murmur, ABDOMEN: Soft, nontender, not distended, normoactive bowel sounds, no guarding, no rebound, no masses. King cath in situ haematuria. UPPER EXTREMITIES: 2+ pulses, warm, well-perfused.. LOWER EXTREMITIES: 2+ pulses, warm, well-perfused. Left leg swollen, catheter in situ in poplitial area, sensation to touch intact b/l NEUROLOGICAL: Cranial nerves II-XII intact. Normal speech. PSYCHIATRIC: Cooperative. Good eye contact. Appropriate mood and affect. SKIN: Warm, dry, Laboratory Results - last 24 hr 09/15/17 09/15/17 09/15/17 05:42 06:10 06:15 WBC 9.8 RBC 3.48 L Hgb 11.4 Hct 33.7 MCV 97.0 H MCH 32.8 MCHC 33.8 RDW 13.7 Plt Count 182 MPV 8.7 PTT (Actin FS) Fibrinogen Sodium Potassium Chloride Carbon Dioxide Anion Gap BUN Creatinine Creat Clearance w eGFR POC Glucometer 151 Random Glucose Calcium Phosphorus Magnesium Blood Type O POSITIVE Antibody Screen Negative 09/15/17 09/15/17 09/15/17 06:15 06:15 10:02 WBC 10.0 RBC 3.40 L Hgb 11.1 Hct 32.8 MCV 96.4 H MCH 32.6 MCHC 33.9 RDW 13.6 Plt Count 190 MPV 8.8 PTT (Actin FS) 45.1 H Fibrinogen Sodium 136 Potassium 4.1 Chloride 101 Carbon Dioxide 22 Anion Gap 13 BUN 25 H Creatinine 1.1 H Creat Clearance w eGFR 47.32 POC Glucometer Random Glucose 141 H Calcium 8.4 L Phosphorus 3.3 Magnesium 1.5 L Blood Type Antibody Screen 09/15/17 20:10 WBC RBC Hgb Hct MCV MCH MCHC RDW Plt Count MPV PTT (Actin FS) Fibrinogen Cancelled Sodium Potassium Chloride Carbon Dioxide Anion Gap BUN Creatinine Creat Clearance w eGFR POC Glucometer Random Glucose Calcium Phosphorus Magnesium Blood Type Antibody Screen Active Medications Generic Name Dose Route Start Last Admin Trade Name Freq PRN Reason Stop Dose Admin Acetaminophen 650 mg 09/15/17 18:31 Tylenol - PO Q8H PRN FEVER Chlorhexidine Gluconate 1 applic 09/15/17 22:00 Hibiclens For Decolonization - TP HS [facility] Fentanyl 25 mcg 09/15/17 17:55 Sublimaze Injection - IVPUSH [id number] PRN PAIN-PACU ORDER X 4 DOSES ONLY Hydrochlorothiazide 25 mg 09/16/17 10:00 Hctz - PO DAILY [facility] Lactated Ringer's 1,000 mls @ 75 mls/hr 09/15/17 18:00 Lactated Ringers Solution IV ASDIR [facility] Alteplase, Recombinant 10 mg/ 250 mls @ 25 mls/hr 09/15/17 18:31 09/15/17 17: 40 Sodium Chloride CVP 09/16/17 03:29 0 mls ASDIR [facility] Administration Heparin Sodium/Dextrose 25,000 units in 500 mls @ 10 mls/hr 09/15/17 19:15 17:40 Heparin Infusion - IVPB 0 mls ASDIR [facility] Administration Insulin Aspart 1 vial 09/16/17 07:00 Novolog Vial Sliding Scale - SQ TIDAC [facility] Protocol Metoprolol Succinate 100 mg 09/16/17 10:00 Toprol Xl - PO DAILY [facility] Mupirocin 1 applic 09/15/17 22:00 Bactroban Ointment (For Decolonization) - NS 09/20/17 21:59 BID [facility] Ondansetron HCl 4 mg 09/15/17 17:55 Zofran Injection IVPUSH Q6H PRN NAUSEA AND/OR VOMITING Pantoprazole Sodium 40 mg 09/16/17 10:00 Protonix - PO DAILY [facility] Valsartan 320 mg 09/16/17 10:00 Diovan - PO DAILY [facility] ASSESSMENT/PLAN: (1) Thrombotic occlusion of the left common femoral, external and internal iliac vein and distal IVC and filter mechanicopharmacologic thrombolysis, placement of thrombolysis catheter on tpa and heparin infusion. keep leg elevated. watch for bleeding monitor aptt monitor fibrinogen level. vascular surgery on case. (2) HTN (hypertension) continue home meds diovan and toprol xl (3) T2DM (type 2 diabetes mellitus) BGM on novolog sliding scale. 4) hematuria likely secondary to heparin and tpa infusion. monitor fibrinogen level. repeat haemoglobin in am. 5) Hypomagnesemia. got 2gm today. repeat in am Fluid; LR 75ml/hr electrolyte repeat in am nutrition: NPO for now, reaccess in morning. gi pro; protonix Visit type - Emergency Visit Emergency Visit: Yes ED Registration Date: 09/12/17 Care time: The patient presented to the Emergency Department on the above date and was hospitalized for further evaluation of their emergent condition. - New Patient This patient is new to me today: Yes Date on this admission: 09/15/17 - Critical Care Critical Care patient: Yes Total Critical Care Time (in minutes): 45 Critical Care Statement: The care of this patient involved high complexity decision making to prevent further life threatening deterioration of the patient 's condition and/or to evaluate & treat vital organ system(s) failure or risk of failure.
[2017-09-15] MEDS ORDERED: CHLORHEXIDINE GLUCONATE 4% CLEANSER FOR DECOLONIZATION TP SCH (22:00)
[2017-09-15] MEDS ORDERED: PANTOPRAZOLE SODIUM 40 MG VIAL IVPUSH ONE (22:15)
[2017-09-15] MEDS: MUPIROCIN 2% TOPICAL OINTMENT FOR DECOLONIZATION NS SCH (23:00)
[2017-09-16] MEDS ORDERED: SODIUM CHLORIDE CVP SCH ×2 (03:30→05:15)
[2017-09-16] MEDS ORDERED: ALTEPLASE CVP SCH ×2 (03:30→05:15)
[2017-09-16 06:08] LABS: BASO % 0.3 % (0-2.0); EOS % 3.2 % (0-4.5); HEMATOCRIT 28.1 % (32.4-45.2); HEMOGLOBIN 9.8 GM/dL (10.7-15.3); LYMPH % 5.1 % (8-40); MCH 33.4 pg (25.7-33.7); MCHC 34.8 g/dl (32.0-36.0); MEAN CELL VOLUME 96.2 fl (80-96); MEAN PLT VOLUME 8.9 fl (7.5-11.1); MONO % 14.2 % (3.8-10.2); NEUT % 77.2 % (42.8-82.8); PLATELET COUNT 158 K/MM3 (134-434); RBC 2.92 M/mm3 (3.60-5.2); RDW 13.4 % (11.6-15.6); WHITE BLOOD COUNT 11.9 K/mm3 (4.0-10.0)
[2017-09-16] MEDS: INSULIN SLIDING SCALE (NOVOLOG) 1 VIAL SQ SCH ×3 (06:41→15:59)
[2017-09-16] MEDS ORDERED: LORATADINE 10 MG TABLET PO ONE (07:29)
--- NOTE | 2017-09-16 08:03 | PN ---
Physical Exam: SUBJECTIVE: Pt is comfortable and only complains of sneezing with some congestion. Pt reports she is able to feel her LLExt without problem and can move, however is limited due to some pain. Pt is currently POD1 with vascular surgery for her extensive DVT/thrombosis of her LLExt up to her IVC filter OBJECTIVE: Vital Signs Period Temp Pulse Resp BP Sys/Aldana Pulse Ox Last 24 Hr 98.1 F-99.1 F 83-99 14-22 127-187/57-100 93-100 GENERAL: NAD, awake, alert, oriented x3 HEENT: NC/AT, EOMI, HENRY, sclera anicteric, moist mucosa NECK: Soft, no JVD, trachea midline LUNGS: CTA bilaterally, no wheezes, no crackles, no accessory muscle use. 100% SpO2 HEART: RRR, S1, S2 without murmur ABDOMEN: Soft, NT/ND, normoactive bowel sounds, no guarding, no hepatomegaly EXTREMITIES: 1+ DP pulse on R, dopplerable pulse on L with triphasic flow, LLExt edema noted with some tenderness on movement. NEUROLOGICAL: Sensation intact bilaterally in LExt's, plantar/dorsal flexion b/ l 5/5, other strength examinations limited by pain PSYCH: Normal mood, normal affect. SKIN: Warm, dry, no rashes or lesions noted Laboratory Results - last 24 hr 09/15/17 09/15/17 09/15/17 06:10 06:15 10:02 WBC 10.0 RBC 3.40 L Hgb 11.1 Hct 32.8 MCV 96.4 H MCH 32.6 MCHC 33.9 RDW 13.6 Plt Count 190 MPV 8.8 Absolute Neuts (auto) Neutrophils % Lymphocytes % Monocytes % Eosinophils % Basophils % Nucleated RBC % PTT (Actin FS) Fibrinogen Sodium 136 Potassium 4.1 Chloride 101 Carbon Dioxide 22 Anion Gap 13 BUN 25 H Creatinine 1.1 H Creat Clearance w eGFR 47.32 POC Glucometer Random Glucose 141 H Calcium 8.4 L Phosphorus 3.3 Magnesium 1.5 L Troponin I TSH Blood Type O POSITIVE Antibody Screen Negative 09/15/17 09/15/17 09/15/17 20:10 21:45 23:37 WBC RBC Hgb Hct MCV MCH MCHC RDW Plt Count MPV Absolute Neuts (auto) Neutrophils % Lymphocytes % Monocytes % Eosinophils % Basophils % Nucleated RBC % PTT (Actin FS) Fibrinogen Cancelled 316.0 Sodium Potassium Chloride Carbon Dioxide Anion Gap BUN Creatinine Creat Clearance w eGFR POC Glucometer [phone] Random Glucose Calcium Phosphorus Magnesium Troponin I TSH Blood Type Antibody Screen 09/16/17 09/16/17 09/16/17 02:00 02:00 02:00 WBC RBC Hgb Hct MCV MCH MCHC RDW Plt Count MPV Absolute Neuts (auto) Neutrophils % Lymphocytes % Monocytes % Eosinophils % Basophils % Nucleated RBC % PTT (Actin FS) Fibrinogen Cancelled Sodium Cancelled Potassium Cancelled Chloride Cancelled Carbon Dioxide Cancelled Anion Gap Cancelled BUN Cancelled Creatinine Cancelled Creat Clearance w eGFR Cancelled POC Glucometer Random Glucose Cancelled Calcium Cancelled Phosphorus Cancelled Magnesium Cancelled Troponin I Cancelled TSH Blood Type Antibody Screen 09/16/17 09/16/17 09/16/17 03:10 03:10 05:30 WBC RBC Hgb Hct MCV MCH MCHC RDW Plt Count MPV Absolute Neuts (auto) Neutrophils % Lymphocytes % Monocytes % Eosinophils % Basophils % Nucleated RBC % PTT (Actin FS) 26.3 D Fibrinogen Cancelled Sodium Cancelled Potassium Cancelled Chloride Cancelled Carbon Dioxide Cancelled Anion Gap Cancelled BUN Cancelled Creatinine Cancelled Creat Clearance w eGFR Cancelled POC Glucometer Random Glucose Cancelled Calcium Cancelled Phosphorus Magnesium Cancelled Troponin I TSH Blood Type Antibody Screen 09/16/17 09/16/17 09/16/17 05:30 05:30 05:30 WBC 11.9 H RBC 2.92 L Hgb 9.8 L Hct 28.1 L MCV 96.2 H MCH 33.4 MCHC 34.8 RDW 13.4 Plt Count 158 MPV 8.9 Absolute Neuts (auto) 9.2 Neutrophils % 77.2 Lymphocytes % 5.1 L D Monocytes % 14.2 H Eosinophils % 3.2 Basophils % 0.3 Nucleated RBC % 0 PTT (Actin FS) Fibrinogen 378.0 Sodium Potassium Chloride Carbon Dioxide Anion Gap BUN Creatinine Creat Clearance w eGFR POC Glucometer Random Glucose Calcium Phosphorus Cancelled Magnesium Cancelled Troponin I TSH Cancelled Blood Type Antibody Screen 09/16/17 06:23 WBC RBC Hgb Hct MCV MCH MCHC RDW Plt Count MPV Absolute Neuts (auto) Neutrophils % Lymphocytes % Monocytes % Eosinophils % Basophils % Nucleated RBC % PTT (Actin FS) Fibrinogen Sodium Potassium Chloride Carbon Dioxide Anion Gap BUN Creatinine Creat Clearance w eGFR POC Glucometer [phone] Random Glucose Calcium Phosphorus Magnesium Troponin I TSH Blood Type Antibody Screen Active Medications Generic Name Dose Route Start Last Admin Trade Name Mila PRN Reason Stop Dose Admin Acetaminophen 650 mg 09/15/17 18:31 Tylenol - PO Q8H PRN FEVER Chlorhexidine Gluconate 1 applic 09/15/17 22:00 09/15/17 22:00 Hibiclens For Decolonization - TP 1 applic [facility] Administration Hydrochlorothiazide 25 mg 09/16/17 10:00 Hctz - PO DAILY [facility] Heparin Sodium/Dextrose 25,000 units in 500 mls @ 10 mls/hr 09/15/17 19:15 21:45 Heparin Infusion - IVPB 10 mls/hr ASDIR [facility] Administration Alteplase, Recombinant 10 mg/ 250 mls @ 12.5 mls/hr 09/16/17 05:15 09/16/17 05:15 Sodium Chloride CVP 09/17/17 01:14 Not Given ASDIR [facility] Insulin Aspart 1 vial 09/16/17 07:00 09/16/17 06:41 Novolog Vial Sliding Scale - SQ Not Given [facility] Protocol Metoprolol Succinate 100 mg 09/16/17 10:00 Toprol Xl - PO DAILY [facility] Mupirocin 1 applic 09/15/17 22:00 09/15/17 23:00 Bactroban Ointment (For Decolonization) - NS 09/20/17 21:59 1 applic BID [facility] Administration Ondansetron HCl 4 mg 09/15/17 17:55 Zofran Injection IVPUSH Q6H PRN NAUSEA AND/OR VOMITING Pantoprazole Sodium 40 mg 09/16/17 10:00 Protonix - PO DAILY [facility] Valsartan 320 mg 09/16/17 10:00 Diovan - PO DAILY [facility] ASSESSMENT/PLAN: 1) Thrombotic occlusion of L common femoral, ext and int iliac veing and distal IVC to filter --POD1 --Pt to go back to OR today for revascularization --Monitor pulses; with dopplers if needed --On TPA directed to thrombus to continue --Continue heparin infusion --Monitor aPTT --Monitor fibrinogen - this morning WNL 2) HTN --Continue Diovan 320mg qDaily --Continue Toprol XL 100mg qdaily 3) DMT2 --BGM --ISS --Pt to go back to OR today and is NPO --hold short-term and half long-term insulin 4) Hematuria --Pt currently on TPA directed and heparin gtt --H/H monitoring reveals stable H/H --Will monitor and if worsening or change in symptoms will address with urology and vascular about AC FEN: Fluids: LR @75cc/hr Electrolyte abnormalities: CMP hemolyzed multiple times; redraw Nutrition: NPO for procedure today at 11am PPX: DVT - Pt already on AP therapies GI - Protonix daily Dispo: Continue ICU monitoring while on TPA directed thrombolysis Case discussed with Dr. Jayla Moore, DO - IM PGY-2 Visit type - Emergency Visit Emergency Visit: No - New Patient This patient is new to me today: No - Critical Care Critical Care patient: Yes Total Critical Care Time (in minutes): 35 Critical Care Statement: The care of this patient involved high complexity decision making to prevent further life threatening deterioration of the patient 's condition and/or to evaluate & treat vital organ system(s) failure or risk of failure.
[2017-09-16 09:16] LABS: ALBUMIN 2.2 g/dl (3.4-5.0); ANION GAP 9 (8-16); BILIRUBIN,TOTAL 1.5 mg/dL (0.2-1.0); BLOOD UREA NITROGEN 31 mg/dL (7-18); CALCIUM 7.9 mg/dL (8.5-10.1); CHLORIDE 104 mmol/L (98-107); CO2 26 mmol/L (21-32); CREATININE 1.8 mg/dL (0.55-1.02); GLUCOSE,RANDOM 173 mg/dL (74-106); PHOSPHOROUS 4.3 mg/dL (2.5-4.9); SGPT/ALT 33 U/L (12-78); SODIUM 139 mmol/L (136-145); TOT PROT 5.7 g/dl (6.4-8.2)
[2017-09-16 09:17] LABS: ALK PHOS 69 U/L (45-117)
[2017-09-16] MEDS ORDERED: PANTOPRAZOLE SODIUM 40 MG VIAL IVPUSH ONE (09:17)
--- NOTE | 2017-09-16 09:18 | CON.CARD ---
Consult Consult Specialty:: Cardiology Reason for Consultation:: st degree avb apc's - History of Present Illness History of Present Illness: 82 year old woman with increasing left leg pain and swelling for several days. She came to ER when she couldn't walk. SCan shows extensive DVT of leg. She had a DVT in the same leg years ago and was treated with COumadin for several months. 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 Cardio/Vascular: Yes: HTN ...: No Rheumatology: Yes: Fibromyalgia Endocrine: Yes: Diabetes Mellitus - Alcohol/Substance Use Hx Alcohol Use: No - Smoking History Smoking history: Never smoked Have you smoked in the past 12 months: No Home Medications - Allergies Allergies/Adverse Reactions: Allergies Allergy/AdvReac Type Severity Reaction Status Date / Time No Known Drug Allergies Allergy Verified 09/15/17 21:47 morphine AdvReac Mild Nausea Verified 09/12/17 21:08 - Home Medications Home Medications: Ambulatory Orders Aspirin [ASA -] 81 mg PO DAILY 05/14/13 Meclizine HCl [Antivert -] 25 mg PO PRN 05/14/13 Olmesartan/Hydrochlorothiazide [Benicar Hct 40-25 mg Tablet] 1 each PO DAILY 03/29 Omeprazole 40 mg PO DAILY 05/14/13 Trospium Chloride 20 mg PO BID 05/14/13 metFORMIN HCL [Glucophage -] 500 mg PO DAILY 05/14/13 Metoprolol Succinate 100 mg PO DAILY 05/15/13 Review of Systems - Review of Systems Constitutional: reports: No Symptoms Eyes: reports: No Symptoms HENT: reports: No Symptoms Neck: reports: No Symptoms Cardiovascular: reports: No Symptoms Gastrointestinal: reports: No Symptoms Genitourinary: reports: No Symptoms Breasts: reports: No Symptoms Reported Musculoskeletal: reports: No Symptoms Integumentary: reports: No Symptoms Neurological: reports: No Symptoms Endocrine: reports: No Symptoms Hematology/Lymphatic: reports: No Symptoms Psychiatric: reports: No Symptoms Vital Signs: Vital Signs Temperature 98.3 F 09/16/17 08:00 Pulse Rate 73 09/16/17 08:55 Respiratory Rate 22 09/16/17 08:55 Blood Pressure 144/69 09/16/17 08:55 O2 Sat by Pulse Oximetry (%) 93 L 09/16/17 08:55 Constitutional: Yes: Well Nourished, No Distress, Calm Eyes: Yes: WNL, Conjunctiva Clear, EOM Intact HENT: Yes: WNL, Atraumatic, Normocephalic Neck: Yes: WNL, Supple, Trachea Midline Respiratory: Yes: WNL, Regular, CTA Bilaterally Gastrointestinal: Yes: WNL, Normal Bowel Sounds Renal/: Yes: WNL Cardiovascular: Yes: WNL, Regular Rate and Rhythm Musculoskeletal: Yes: WNL Extremities: Yes: WNL Integumentary: Yes: WNL Neurological: Yes: WNL, Alert, Oriented ...Motor Strength: WNL Psychiatric: Yes: WNL, Alert, Oriented - Other Data Labs, Other Data: CBC, BMP 09/16/17 05:30 INR, PTT INR 1.14 (0.82-1.09) 09/12/17 22:53 Fibrinogen 378.0 mg/dL (238-498) 09/16/17 05:30 Troponin, BNP 09/16/17 02:00 Troponin I Cancelled Troponin, BNP 09/16/17 02:00 Troponin I Cancelled Laboratory Tests 09/12/17 09/12/17 09/12/17 22:53 22:53 22:53 WBC 10.6 H RBC 3.87 Hgb 12.5 Hct 37.1 MCV 96.0 MCH 32.3 MCHC 33.6 RDW 13.8 Plt Count 171 MPV 8.3 Absolute Neuts (auto) 8.2 Neutrophils % 77.4 D Lymphocytes % 9.6 D Monocytes % 11.2 H Eosinophils % 1.4 D Basophils % 0.4 Nucleated RBC % 0 PT with INR INR PTT (Actin FS) 24.2 L Fibrinogen D-Dimer 7603 H Sodium 139 Potassium 4.4 Chloride 106 Carbon Dioxide 24 Anion Gap 9 BUN 27 H Creatinine 1.4 H Creat Clearance w eGFR 35.82 POC Glucometer Random Glucose 143 H Hemoglobin A1c % Calcium 9.0 Phosphorus Magnesium Total Bilirubin 0.9 AST 14 L ALT 19 Alkaline Phosphatase 78 Troponin I Total Protein 7.2 Albumin 3.7 TSH Stool Occult Blood Blood Type Antibody Screen 09/12/17 09/13/17 09/13/17 22:53 05:59 07:00 WBC 8.3 RBC 3.82 Hgb 12.4 Hct 37.1 MCV 97.2 H MCH 32.4 MCHC 33.3 RDW 13.9 Plt Count 160 MPV 8.7 Absolute Neuts (auto) 5.7 Neutrophils % 68.4 Lymphocytes % 13.8 D Monocytes % 15.4 H Eosinophils % 2.0 Basophils % 0.4 Nucleated RBC % 0 PT with INR 12.90 INR 1.14 PTT (Actin FS) Fibrinogen D-Dimer Sodium Potassium Chloride Carbon Dioxide Anion Gap BUN Creatinine Creat Clearance w eGFR POC Glucometer 167 Random Glucose Hemoglobin A1c % Calcium Phosphorus Magnesium Total Bilirubin AST ALT Alkaline Phosphatase Troponin I Total Protein Albumin TSH Stool Occult Blood Blood Type Antibody Screen 09/13/17 09/13/17 09/13/17 07:30 09:00 16:00 WBC RBC Hgb Hct MCV MCH MCHC RDW Plt Count MPV Absolute Neuts (auto) Neutrophils % Lymphocytes % Monocytes % Eosinophils % Basophils % Nucleated RBC % PT with INR INR PTT (Actin FS) 44.3 H D Fibrinogen D-Dimer Sodium 139 Potassium 4.8 Chloride 105 Carbon Dioxide 25 Anion Gap 9 BUN 31 H Creatinine 1.3 H Creat Clearance w eGFR 39.02 POC Glucometer Random Glucose 129 H Hemoglobin A1c % Calcium 8.8 Phosphorus Magnesium 1.6 L Total Bilirubin 0.8 AST 13 L ALT 17 Alkaline Phosphatase 73 Troponin I Total Protein 6.8 Albumin 3.3 L TSH Stool Occult Blood Negative Blood Type Antibody Screen 09/13/17 09/13/17 09/13/17 16:00 16:41 21:40 WBC RBC Hgb Hct MCV MCH MCHC RDW Plt Count MPV Absolute Neuts (auto) Neutrophils % Lymphocytes % Monocytes % Eosinophils % Basophils % Nucleated RBC % PT with INR INR PTT (Actin FS) 66.4 H D Fibrinogen D-Dimer Sodium Potassium Chloride Carbon Dioxide Anion Gap BUN Creatinine Creat Clearance w eGFR POC Glucometer 158 Random Glucose Hemoglobin A1c % Calcium Phosphorus Magnesium 1.4 L Total Bilirubin AST ALT Alkaline Phosphatase Troponin I Total Protein Albumin TSH Stool Occult Blood Blood Type Antibody Screen 09/14/17 09/14/17 09/14/17 06:20 06:20 06:20 WBC 10.4 H RBC 3.78 Hgb 12.4 Hct 36.7 MCV 96.9 H MCH 32.7 MCHC 33.8 RDW 13.8 Plt Count 187 MPV 8.8 Absolute Neuts (auto) 7.4 Neutrophils % 71.1 Lymphocytes % 11.9 Monocytes % 12.2 H Eosinophils % 4.3 D Basophils % 0.5 Nucleated RBC % 0 PT with INR INR PTT (Actin FS) 50.8 H Fibrinogen D-Dimer Sodium 136 Potassium 4.0 Chloride 102 Carbon Dioxide 26 Anion Gap 8 BUN 28 H Creatinine 1.2 H Creat Clearance w eGFR 42.80 POC Glucometer Random Glucose 158 H Hemoglobin A1c % Calcium 8.8 Phosphorus Magnesium Total Bilirubin AST ALT Alkaline Phosphatase Troponin I Total Protein Albumin TSH Stool Occult Blood Blood Type Antibody Screen 09/14/17 09/14/17 09/14/17 06:20 07:00 12:51 WBC RBC Hgb Hct MCV MCH MCHC RDW Plt Count MPV Absolute Neuts (auto) Neutrophils % Lymphocytes % Monocytes % Eosinophils % Basophils % Nucleated RBC % PT with INR INR PTT (Actin FS) Fibrinogen D-Dimer Sodium Potassium Chloride Carbon Dioxide Anion Gap BUN Creatinine Creat Clearance w eGFR POC Glucometer 166 172 Random Glucose Hemoglobin A1c % 6.4 H Calcium Phosphorus Magnesium Total Bilirubin AST ALT Alkaline Phosphatase Troponin I Total Protein Albumin TSH Stool Occult Blood Blood Type Antibody Screen 09/14/17 09/15/17 09/15/17 17:20 05:42 06:10 WBC RBC Hgb Hct MCV MCH MCHC RDW Plt Count MPV Absolute Neuts (auto) Neutrophils % Lymphocytes % Monocytes % Eosinophils % Basophils % Nucleated RBC % PT with INR INR PTT (Actin FS) Fibrinogen D-Dimer Sodium Potassium Chloride Carbon Dioxide Anion Gap BUN Creatinine Creat Clearance w eGFR POC Glucometer 125 151 Random Glucose Hemoglobin A1c % Calcium Phosphorus Magnesium Total Bilirubin AST ALT Alkaline Phosphatase Troponin I Total Protein Albumin TSH Stool Occult Blood Blood Type O POSITIVE Antibody Screen Negative 09/15/17 09/15/17 09/15/17 06:15 06:15 06:15 WBC 9.8 RBC 3.48 L Hgb 11.4 Hct 33.7 MCV 97.0 H MCH 32.8 MCHC 33.8 RDW 13.7 Plt Count 182 MPV 8.7 Absolute Neuts (auto) Neutrophils % Lymphocytes % Monocytes % Eosinophils % Basophils % Nucleated RBC % PT with INR INR PTT (Actin FS) 45.1 H Fibrinogen D-Dimer Sodium 136 Potassium 4.1 Chloride 101 Carbon Dioxide 22 Anion Gap 13 BUN 25 H Creatinine 1.1 H Creat Clearance w eGFR 47.32 POC Glucometer Random Glucose 141 H Hemoglobin A1c % Calcium 8.4 L Phosphorus 3.3 Magnesium 1.5 L Total Bilirubin AST ALT Alkaline Phosphatase Troponin I Total Protein Albumin TSH Stool Occult Blood Blood Type Antibody Screen 09/15/17 09/15/17 09/15/17 10:02 20:09 20:10 WBC 10.0 RBC 3.40 L Hgb 11.1 Hct 32.8 MCV 96.4 H MCH 32.6 MCHC 33.9 RDW 13.6 Plt Count 190 MPV 8.8 Absolute Neuts (auto) Neutrophils % Lymphocytes % Monocytes % Eosinophils % Basophils % Nucleated RBC % PT with INR INR PTT (Actin FS) Fibrinogen Cancelled D-Dimer Sodium Potassium Chloride Carbon Dioxide Anion Gap BUN Creatinine Creat Clearance w eGFR POC Glucometer 161 Random Glucose Hemoglobin A1c % Calcium Phosphorus Magnesium Total Bilirubin AST ALT Alkaline Phosphatase Troponin I Total Protein Albumin TSH Stool Occult Blood Blood Type Antibody Screen 09/15/17 09/15/17 09/16/17 21:45 23:37 02:00 WBC RBC Hgb Hct MCV MCH MCHC RDW Plt Count MPV Absolute Neuts (auto) Neutrophils % Lymphocytes % Monocytes % Eosinophils % Basophils % Nucleated RBC % PT with INR INR PTT (Actin FS) Fibrinogen 316.0 D-Dimer Sodium Cancelled Potassium Cancelled Chloride Cancelled Carbon Dioxide Cancelled Anion Gap Cancelled BUN Cancelled Creatinine Cancelled Creat Clearance w eGFR Cancelled POC Glucometer 196.82022 Random Glucose Cancelled Hemoglobin A1c % Calcium Cancelled Phosphorus Cancelled Magnesium Cancelled Total Bilirubin AST ALT Alkaline Phosphatase Troponin I Total Protein Albumin TSH Stool Occult Blood Blood Type Antibody Screen 09/16/17 09/16/17 09/16/17 02:00 02:00 03:10 WBC RBC Hgb Hct MCV MCH MCHC RDW Plt Count MPV Absolute Neuts (auto) Neutrophils % Lymphocytes % Monocytes % Eosinophils % Basophils % Nucleated RBC % PT with INR INR PTT (Actin FS) Fibrinogen Cancelled Cancelled D-Dimer Sodium Potassium Chloride Carbon Dioxide Anion Gap BUN Creatinine Creat Clearance w eGFR POC Glucometer Random Glucose Hemoglobin A1c % Calcium Phosphorus Magnesium Total Bilirubin AST ALT Alkaline Phosphatase Troponin I Cancelled Total Protein Albumin TSH Stool Occult Blood Blood Type Antibody Screen 09/16/17 09/16/17 09/16/17 03:10 05:30 05:30 WBC RBC Hgb Hct MCV MCH MCHC RDW Plt Count MPV Absolute Neuts (auto) Neutrophils % Lymphocytes % Monocytes % Eosinophils % Basophils % Nucleated RBC % PT with INR INR PTT (Actin FS) 26.3 D Fibrinogen D-Dimer Sodium Cancelled Potassium Cancelled Chloride Cancelled Carbon Dioxide Cancelled Anion Gap Cancelled BUN Cancelled Creatinine Cancelled Creat Clearance w eGFR Cancelled POC Glucometer Random Glucose Cancelled Hemoglobin A1c % Calcium Cancelled Phosphorus Cancelled Magnesium Cancelled Cancelled Total Bilirubin AST ALT Alkaline Phosphatase Troponin I Total Protein Albumin TSH Cancelled Stool Occult Blood Blood Type Antibody Screen 09/16/17 09/16/17 09/16/17 05:30 05:30 06:23 WBC 11.9 H RBC 2.92 L Hgb 9.8 L Hct 28.1 L MCV 96.2 H MCH 33.4 MCHC 34.8 RDW 13.4 Plt Count 158 MPV 8.9 Absolute Neuts (auto) 9.2 Neutrophils % 77.2 Lymphocytes % 5.1 L D Monocytes % 14.2 H Eosinophils % 3.2 Basophils % 0.3 Nucleated RBC % 0 PT with INR INR PTT (Actin FS) Fibrinogen 378.0 D-Dimer Sodium Potassium Chloride Carbon Dioxide Anion Gap BUN Creatinine Creat Clearance w eGFR POC Glucometer 214.67355 Random Glucose Hemoglobin A1c % Calcium Phosphorus Magnesium Total Bilirubin AST ALT Alkaline Phosphatase Troponin I Total Protein Albumin TSH Stool Occult Blood Blood Type Antibody Screen Imaging - Results Chest X-ray: Image Reviewed (no i/e) EKG: Image Reviewed (sr 1 avb occ apc's) Problem List - Problems (1) Dehydration Code(s): E86.0 - DEHYDRATION (2) Femoral vein, deep venous thrombosis Code(s): I82.419 - ACUTE EMBOLISM AND THROMBOSIS OF UNSPECIFIED FEMORAL VEIN Qualifiers: Chronicity: acute Laterality: left Qualified Code(s): I82.412 - Acute embolism and thrombosis of left femoral vein (3) HTN (hypertension) Code(s): I10 - ESSENTIAL (PRIMARY) HYPERTENSION (4) Hypomagnesemia Code(s): E83.42 - HYPOMAGNESEMIA (5) T2DM (type 2 diabetes mellitus) Code(s): E11.9 - TYPE 2 DIABETES MELLITUS WITHOUT COMPLICATIONS (6) Benign positional vertigo Code(s): H81.10 - BENIGN PAROXYSMAL VERTIGO, UNSPECIFIED EAR (7) Bleeding Code(s): R58 - HEMORRHAGE, NOT ELSEWHERE CLASSIFIED Assessment/Plan POD1 with vascular surgery and tpa infussion for her extensive DVT/thrombosis of her LLExt up to her IVC filter dm HTN new 1 st degree avb apc's hemodynamicqaly stable plan; cardiac mcpherson stable echo ICU monitoring cont present rx cc time speent 70 min
[2017-09-16 09:22] LABS: MAGNESIUM 1.8 mg/dL (1.8-2.4); POTASSIUM 4.5 mmol/L (3.5-5.1)
[2017-09-16 09:23] LABS: SGOT/AST 158 U/L (15-37)
--- NOTE | 2017-09-16 09:36 | PN ---
Progress Note, Physician Chief Complaint: Pt. resting comfortably in bed, no anesthesia complaints. - Current Medication List Current Medications: Active Medications Acetaminophen (Tylenol -) 650 mg PO Q8H PRN PRN Reason: FEVER Chlorhexidine Gluconate (Hibiclens For Decolonization -) 1 applic TP HS [facility] Last Admin: 09/15/17 22:00 Dose: 1 applic Hydrochlorothiazide (Hctz -) 25 mg PO DAILY [facility] Heparin Sodium/Dextrose (Heparin Infusion -) 25,000 units in 500 mls @ 10 mls/ hr IVPB ASDIR [facility] Last Admin: 09/15/17 21:45 Dose: 10 mls/hr Alteplase, Recombinant 10 mg/ (Sodium Chloride) 250 mls @ 12.5 mls/hr CVP ASDIR [facility] Stop: 09/17/17 01:14 Last Admin: 09/16/17 05:15 Dose: Not Given Insulin Aspart (Novolog Vial Sliding Scale -) 1 vial SQ TIDAC [facility]; Protocol Last Admin: 09/16/17 06:41 Dose: Not Given Metoprolol Succinate (Toprol Xl -) 100 mg PO DAILY [facility] Mupirocin (Bactroban Ointment (For Decolonization) -) 1 applic NS BID [facility] Stop: 09/20/17 21:59 Last Admin: 09/15/17 23:00 Dose: 1 applic Ondansetron HCl (Zofran Injection) 4 mg IVPUSH Q6H PRN PRN Reason: NAUSEA AND/OR VOMITING Pantoprazole Sodium (Protonix -) 40 mg PO DAILY [facility] Valsartan (Diovan -) 320 mg PO DAILY [facility] - Objective Vital Signs: Vital Signs Temperature 98.3 F 09/16/17 08:00 Pulse Rate 73 09/16/17 08:55 Respiratory Rate 22 09/16/17 08:55 Blood Pressure 144/69 09/16/17 08:55 O2 Sat by Pulse Oximetry (%) 93 L 09/16/17 08:55 Constitutional: Yes: Well Nourished, No Distress, Calm Neurological: Yes: WNL, Alert, Oriented Labs: CBC, BMP 09/16/17 05:30 09/16/17 08:19 INR, PTT INR 1.14 (0.82-1.09) 09/12/17 22:53 Fibrinogen 378.0 mg/dL (238-498) 09/16/17 05:30 Assessment/Plan POD#1 s/p left leg venogram, thrombectomy and thrombolysis catheter insertion under MAC. Doing well. D/C from anesthesia care.
[2017-09-16] MEDS: MUPIROCIN 2% TOPICAL OINTMENT FOR DECOLONIZATION NS SCH ×2 (09:42→22:00)
[2017-09-16] MEDS: PANTOPRAZOLE 40 MG TABLET (FP) PO SCH (09:43)
[2017-09-16] MEDS: VALSARTAN 160 MG TABLET (UD) PO SCH (09:43)
[2017-09-16] MEDS: HYDROCHLOROTHIAZIDE 25 MG TABLET (FP) PO SCH (09:44)
--- NOTE | 2017-09-16 10:41 | PN ---
Teaching Attending Note Name of Resident: Raciel Moore ATTENDING PHYSICIAN STATEMENT I saw and evaluated the patient. I reviewed the resident's note and discussed the case with the resident. I agree with the resident's findings and plan as documented. SUBJECTIVE: Patient seen and examined in the ICU. Awake and alert. On EKOS device and IV Heparin. Discomfort in the Left thigh. No CP or SOB. Intake & Output 09/13/17 09/14/17 09/15/17 09/16/17 23:59 23:59 23:59 23:59 Intake Total 1038 1580 2088.5 630 Output Total 2000 700 Balance 1038 1580 88.5 -70 Weight 194 lb 0.108 oz Last Vital Signs Temp Pulse Resp BP Pulse Ox 98.3 F 75 19 145/64 93 L 09/16/17 10:23 09/16/17 10:09 09/16/17 10:09 09/16/17 10:09 09/16/17 08:55 Active Medications Acetaminophen (Tylenol -) 650 mg PO Q8H PRN PRN Reason: FEVER Chlorhexidine Gluconate (Hibiclens For Decolonization -) 1 applic TP HS [facility] Last Admin: 09/15/17 22:00 Dose: 1 applic Hydrochlorothiazide (Hctz -) 25 mg PO DAILY [facility] Last Admin: 09/16/17 09:44 Dose: Not Given Heparin Sodium/Dextrose (Heparin Infusion -) 25,000 units in 500 mls @ 10 mls/ hr IVPB ASDIR [facility] Last Admin: 09/15/17 21:45 Dose: 10 mls/hr Alteplase, Recombinant 10 mg/ (Sodium Chloride) 250 mls @ 12.5 mls/hr CVP ASDIR [facility] Stop: 09/17/17 01:14 Last Admin: 09/16/17 05:15 Dose: Not Given Insulin Aspart (Novolog Vial Sliding Scale -) 1 vial SQ TIDAC [facility]; Protocol Last Admin: 09/16/17 06:41 Dose: Not Given Metoprolol Succinate (Toprol Xl -) 100 mg PO DAILY [facility] Mupirocin (Bactroban Ointment (For Decolonization) -) 1 applic NS BID [facility] Stop: 09/20/17 21:59 Last Admin: 09/16/17 09:42 Dose: 1 applic Ondansetron HCl (Zofran Injection) 4 mg IVPUSH Q6H PRN PRN Reason: NAUSEA AND/OR VOMITING Pantoprazole Sodium (Protonix -) 40 mg PO DAILY [facility] Last Admin: 09/16/17 09:43 Dose: Not Given Valsartan (Diovan -) 320 mg PO DAILY [facility] Last Admin: 09/16/17 09:43 Dose: Not Given GENERAL: Awake, alert, and fully oriented, NAD EYES:conjunctiva clear. EARS, NOSE, THROAT: Moist mucous membranes. LUNGS: clear to auscultation bilaterally. No wheezes. No accessory muscle use. HEART: irregular rate, normal S1 and S2 without murmur, ABDOMEN: Soft, nontender, not distended, normoactive bowel sounds, no guarding, no rebound, no masses. King cath in situ haematuria. UPPER EXTREMITIES: 2+ pulses, warm, well-perfused.. LOWER EXTREMITIES: 2+ pulses, warm, well-perfused. Left leg swollen, catheter in situ in popliteal area NEUROLOGICAL: Non-focal PSYCHIATRIC: Cooperative. SKIN: Warm, dry, Laboratory Results - last 24 hr 09/15/17 09/15/17 09/15/17 10:02 20:09 20:10 WBC 10.0 RBC 3.40 L Hgb 11.1 Hct 32.8 MCV 96.4 H MCH 32.6 MCHC 33.9 RDW 13.6 Plt Count 190 MPV 8.8 Absolute Neuts (auto) Neutrophils % Lymphocytes % Monocytes % Eosinophils % Basophils % Nucleated RBC % PTT (Actin FS) Fibrinogen Cancelled Sodium Potassium Chloride Carbon Dioxide Anion Gap BUN Creatinine Creat Clearance w eGFR POC Glucometer 161 Random Glucose Calcium Phosphorus Magnesium Total Bilirubin AST ALT Alkaline Phosphatase Troponin I Total Protein Albumin [facility] 09/15/17 09/15/17 09/16/17 21:45 23:37 02:00 WBC RBC Hgb Hct MCV MCH MCHC RDW Plt Count MPV Absolute Neuts (auto) Neutrophils % Lymphocytes % Monocytes % Eosinophils % Basophils % Nucleated RBC % PTT (Actin FS) Fibrinogen 316.0 Sodium Cancelled Potassium Cancelled Chloride Cancelled Carbon Dioxide Cancelled Anion Gap Cancelled BUN Cancelled Creatinine Cancelled Creat Clearance w eGFR Cancelled POC Glucometer 196.64736 Random Glucose Cancelled Calcium Cancelled Phosphorus Cancelled Magnesium Cancelled Total Bilirubin AST ALT Alkaline Phosphatase Troponin I Total Protein Albumin [facility] 09/16/17 09/16/17 09/16/17 02:00 02:00 03:10 WBC RBC Hgb Hct MCV MCH MCHC RDW Plt Count MPV Absolute Neuts (auto) Neutrophils % Lymphocytes % Monocytes % Eosinophils % Basophils % Nucleated RBC % PTT (Actin FS) Fibrinogen Cancelled Cancelled Sodium Potassium Chloride Carbon Dioxide Anion Gap BUN Creatinine Creat Clearance w eGFR POC Glucometer Random Glucose Calcium Phosphorus Magnesium Total Bilirubin AST ALT Alkaline Phosphatase Troponin I Cancelled Total Protein Albumin TSH 09/16/17 09/16/17 09/16/17 03:10 05:30 05:30 WBC RBC Hgb Hct MCV MCH MCHC RDW Plt Count MPV Absolute Neuts (auto) Neutrophils % Lymphocytes % Monocytes % Eosinophils % Basophils % Nucleated RBC % PTT (Actin FS) 26.3 D Fibrinogen Sodium Cancelled Potassium Cancelled Chloride Cancelled Carbon Dioxide Cancelled Anion Gap Cancelled BUN Cancelled Creatinine Cancelled Creat Clearance w eGFR Cancelled POC Glucometer Random Glucose Cancelled Calcium Cancelled Phosphorus Cancelled Magnesium Cancelled Cancelled Total Bilirubin AST ALT Alkaline Phosphatase Troponin I Total Protein Albumin TSH Cancelled 09/16/17 09/16/17 09/16/17 05:30 05:30 06:23 WBC 11.9 H RBC 2.92 L Hgb 9.8 L Hct 28.1 L MCV 96.2 H MCH 33.4 MCHC 34.8 RDW 13.4 Plt Count 158 MPV 8.9 Absolute Neuts (auto) 9.2 Neutrophils % 77.2 Lymphocytes % 5.1 L D Monocytes % 14.2 H Eosinophils % 3.2 Basophils % 0.3 Nucleated RBC % 0 PTT (Actin FS) Fibrinogen 378.0 Sodium Potassium Chloride Carbon Dioxide Anion Gap BUN Creatinine Creat Clearance w eGFR POC Glucometer 214.99709 Random Glucose Calcium Phosphorus Magnesium Total Bilirubin AST ALT Alkaline Phosphatase Troponin I Total Protein Albumin TSH 09/16/17 08:19 WBC RBC Hgb Hct MCV MCH MCHC RDW Plt Count MPV Absolute Neuts (auto) Neutrophils % Lymphocytes % Monocytes % Eosinophils % Basophils % Nucleated RBC % PTT (Actin FS) Fibrinogen Sodium 139 Potassium 4.5 Chloride 104 Carbon Dioxide 26 Anion Gap 9 BUN 31 H Creatinine 1.8 H Creat Clearance w eGFR 26.81 POC Glucometer Random Glucose 173 H Calcium 7.9 L Phosphorus 4.3 Magnesium 1.8 Total Bilirubin 1.5 H AST 158 H ALT 33 Alkaline Phosphatase 69 Troponin I Total Protein 5.7 L Albumin 2.2 L TSH ASSESSMENT/PLAN: Thrombotic occlusion of the left common femoral, external and internal iliac vein and distal IVC /filter S/P mechanicopharmacologic thrombolysis, placement of thrombolysis catheter HTN DM Hematuria Electrolyte disturbance EKOS IV Heparin O2 as needed Follow Coags Follow CBC Monitor fibrinogen level Glycemic control IVF For OR today Dr Dickerson Critical care time spent in reviewing chart, evaluating patient and formulating plan - 36 minutes.
[2017-09-16] MEDS ORDERED: HEPARIN NA (PORCINE) 5,000 UNITS/ML 1ML VIAL ONE ×2 (11:16→12:17)
[2017-09-16] MEDS ORDERED: ceFAZolin SODIUM 1 GM VIAL IVPB ONE (12:05)
[2017-09-16] MEDS ORDERED: LIDOCAINE HCL 1%, 10 MG/ML (20ML VIAL) INF ONE (12:10)
--- NOTE | 2017-09-16 12:26 | PN ---
Progress Note, Physician Chief Complaint: C/O Left leg pain and swelling History of Present Illness: 82F with HTN HLD DM2 p/w left leg swelling over past day. She has had difficulty walking as well since the afternoon. Has had a DVT in the same leg about 20 years ago, treated short term coumadin. recently went to [facility] about [address] 3 wks ago. s/p thrombectomy on thrombolysis - Current Medication List Current Medications: Active Medications Acetaminophen (Tylenol -) 650 mg PO Q8H PRN PRN Reason: FEVER Chlorhexidine Gluconate (Hibiclens For Decolonization -) 1 applic TP HS [facility] Last Admin: 09/15/17 22:00 Dose: 1 applic Hydrochlorothiazide (Hctz -) 25 mg PO DAILY [facility] Last Admin: 09/16/17 09:44 Dose: Not Given Heparin Sodium/Dextrose (Heparin Infusion -) 25,000 units in 500 mls @ 10 mls/ hr IVPB [facility] Last Admin: 09/15/17 21:45 Dose: 10 mls/hr Alteplase, Recombinant 10 mg/ (Sodium Chloride) 250 mls @ 12.5 mls/hr CVP [facility] Stop: 09/17/17 01:14 Last Admin: 09/16/17 05:15 Dose: Not Given Insulin Aspart (Novolog Vial Sliding Scale -) 1 vial SQ TIDAC [facility]; Protocol Last Admin: 09/16/17 06:41 Dose: Not Given Metoprolol Succinate (Toprol Xl -) 100 mg PO DAILY [facility] Last Admin: 09/16/17 10:29 Dose: 100 mg Mupirocin (Bactroban Ointment (For Decolonization) -) 1 applic NS BID [facility] Stop: 09/20/17 21:59 Last Admin: 09/16/17 09:42 Dose: 1 applic Ondansetron HCl (Zofran Injection) 4 mg IVPUSH Q6H PRN PRN Reason: NAUSEA AND/OR VOMITING Pantoprazole Sodium (Protonix -) 40 mg PO DAILY [facility] Last Admin: 09/16/17 09:43 Dose: Not Given Valsartan (Diovan -) 320 mg PO DAILY [facility] Last Admin: 09/16/17 09:43 Dose: Not Given - Objective Vital Signs: Vital Signs Temperature 98.3 F 09/16/17 10:23 Pulse Rate 75 09/16/17 10:09 Respiratory Rate 19 09/16/17 10:09 Blood Pressure 145/64 09/16/17 10:09 O2 Sat by Pulse Oximetry (%) 93 L 09/16/17 08:55 Elderly F not in distress c/o Left LE Pain and swelling HEENT: Mm moist, o anemia, PERRLA EOMI NECK: No JVd No Bruit CHEST: CTA B/L CVS; S1S2 R no m/g/r ABD; No distention, non tender Bs + EXT: Left LE swelling and Tenderness s/p thrombectomy TPA infusion via cathter in Popliteal area [employer]ACH[employer]PER[employer] SINGLE SPINDLE; AOX3 non focal Labs: CBC, BMP 09/16/17 05:30 09/16/17 08:19 INR, PTT INR 1.14 (0.82-1.09) 09/12/17 22:53 Fibrinogen 378.0 mg/dL (238-498) 09/16/17 05:30 Problem List - Problems (1) Femoral vein, deep venous thrombosis Assessment/Plan: Extensive DVt s/p Thrombectomy on TPA infusion Code(s): I82.419 - ACUTE EMBOLISM AND THROMBOSIS OF UNSPECIFIED FEMORAL VEIN Qualifiers: Chronicity: acute Laterality: left Qualified Code(s): I82.412 - Acute embolism and thrombosis of left femoral vein (2) HTN (hypertension) Assessment/Plan: Well controlled cont home meds Code(s): I10 - ESSENTIAL (PRIMARY) HYPERTENSION (3) T2DM (type 2 diabetes mellitus) Assessment/Plan: Hold Metformin add Correction dose Lispro AC F/U HBa1C Code(s): E11.9 - TYPE 2 DIABETES MELLITUS WITHOUT COMPLICATIONS (4) Gout Assessment/Plan: On Prednisone and Tylenol Code(s): M10.9 - GOUT, UNSPECIFIED Qualifiers: Gout site: foot Gout etiology: due to renal impairment Chronicity: acute Laterality: left Qualified Code(s): M10.372 - Gout due to renal impairment , left ankle and foot
--- NOTE | 2017-09-16 13:12 | OP ---
Operative Note - Note: Operative Date: 09/16/17 Pre-Operative Diagnosis: Left ilio-femoral DVT Operation: Placement stent left common iliac vein Findings: Successful thrombolysis of left femoral and iliac veins. Diffuse irregularity and narrowing of the common iliac vein with residual thrombus extending from the proximal CIV into the right lateral wall of the IVC filter (Jimi nitinol permanent filter) Implants: 14 mm x 80 mm LifeStar stent left CIV Post-Operative Diagnosis: Same as Pre-op Surgeon: Kevin Dinero Anesthesiologist/CAR BRACER: Tristian Farfan Anesthesia: Fractional
[2017-09-16] MEDS ORDERED: SODIUM CHLORIDE 1,000 ML IV SCH (14:30)
--- NOTE | 2017-09-16 15:46 | EKG ---
Test Reason : Blood Pressure : / mmHG Vent. Rate : 096 BPM Atrial Rate : 096 BPM P-R Int : 000 ms QRS Dur : 072 ms QT Int : 380 ms P-R-T Axes : 000 -04 020 degrees QTc Int : 480 ms SINUS RHYTHM WITH 1ST DEGREE A-V BLOCK WITH PREMATURE ATRIAL COMPLEXES IN A PATTERN OF BIGEMINY OTHERWISE NORMAL ECG WHEN COMPARED WITH ECG OF 13-SEP-2017 06:05, PREMATURE ATRIAL COMPLEXES ARE NOW PRESENT [place] INTERVAL HAS DECREASED VENT. RATE HAS INCREASED BY 35 BPM Confirmed by FATEMEH CARDONA, RAHUL ([id number]) on 09/16/2017 3:45:53 PM Referred By: DIXON Confirmed By:RAHUL WELDON MD
[2017-09-16] MEDS: HEPARIN INFUSION - 25,000 UNITS/500 ML INFUS.BAG IVPB SCH ×2 (20:00→20:07)
[2017-09-16] MEDS ORDERED: CHLORHEXIDINE GLUCONATE 4% CLEANSER FOR DECOLONIZATION TP SCH (22:00)
[2017-09-17 06:12] LABS: BASO % 0.2 % (0-2.0); EOS % 5.2 % (0-4.5); HEMATOCRIT 25.8 % (32.4-45.2); HEMOGLOBIN 8.8 GM/dL (10.7-15.3); LYMPH % 6.8 % (8-40); MCH 33.1 pg (25.7-33.7); MCHC 34.1 g/dl (32.0-36.0); MEAN PLT VOLUME 8.8 fl (7.5-11.1); MONO % 12.8 % (3.8-10.2); PLATELET COUNT 159 K/MM3 (134-434); RBC 2.66 M/mm3 (3.60-5.2); RDW 13.6 % (11.6-15.6); WHITE BLOOD COUNT 11.1 K/mm3 (4.0-10.0)
[2017-09-17 06:34] LABS: ALBUMIN 2.1 g/dl (3.4-5.0); ALK PHOS 59 U/L (45-117); ANION GAP 9 (8-16); BILIRUBIN,TOTAL 0.7 mg/dL (0.2-1.0); BLOOD UREA NITROGEN 36 mg/dL (7-18); CHLORIDE 106 mmol/L (98-107); CO2 26 mmol/L (21-32); CREATININE 1.7 mg/dL (0.55-1.02); GLUCOSE,RANDOM 134 mg/dL (74-106); PHOSPHOROUS 3.6 mg/dL (2.5-4.9); SGPT/ALT 22 U/L (12-78); SODIUM 141 mmol/L (136-145); TOT PROT 4.9 g/dl (6.4-8.2)
[2017-09-17 06:37] LABS: MAGNESIUM 1.7 mg/dL (1.8-2.4); POTASSIUM 4.2 mmol/L (3.5-5.1)
[2017-09-17 06:38] LABS: SGOT/AST 50 U/L (15-37)
[2017-09-17] MEDS: INSULIN SLIDING SCALE (NOVOLOG) 1 VIAL SQ SCH ×3 (07:00→17:30)
[2017-09-17] MEDS ORDERED: LACTATED RINGERS SOLUTION 1,000 ML/1,000 ML INFUS.BAG IV SCH (07:45)
[2017-09-17] MEDS ORDERED: HEPARIN NA (PORCINE) 5,000 UNITS/ML 1ML VIAL IVPUSH PRN ×6 (08:44→15:40)
[2017-09-17] MEDS ORDERED: HEPARIN - 25,000 UNIT in SODIUM CHLORIDE 495 ML IV SCH ×2 (08:45→15:40)
[2017-09-17] MEDS ORDERED: PT OWN MED DRAWER 7, Y5N ONE (08:51)
--- NOTE | 2017-09-17 09:00 | PN ---
Progress Note (short form) - Note Progress Note: 82 yo Female s/p venoplasty adn ecos cath removal no complications associated with post anesthesia
[2017-09-17] MEDS: HYDROCHLOROTHIAZIDE 25 MG TABLET (FP) PO SCH (09:33)
[2017-09-17] MEDS: VALSARTAN 160 MG TABLET (UD) PO SCH (09:33)
[2017-09-17] MEDS: MUPIROCIN 2% TOPICAL OINTMENT FOR DECOLONIZATION NS SCH (09:34)
[2017-09-17] MEDS: PANTOPRAZOLE 40 MG TABLET (FP) PO SCH (09:34)
[2017-09-17] MEDS ORDERED: LORATADINE 10 MG TABLET PO SCH (10:00)
[2017-09-17 10:32] LABS: ANISOCYTOSIS 1+; MACROCYTOSIS 1+
[2017-09-17 10:38] LABS: HEMATOCRIT 27.4 % (32.4-45.2); HEMOGLOBIN 9.2 GM/dL (10.7-15.3); MCH 32.7 pg (25.7-33.7); MCHC 33.6 g/dl (32.0-36.0); MEAN CELL VOLUME 97.2 fl (80-96); MEAN PLT VOLUME 8.4 fl (7.5-11.1); PLATELET COUNT 176 K/MM3 (134-434); RBC 2.82 M/mm3 (3.60-5.2); RDW 13.9 % (11.6-15.6); WHITE BLOOD COUNT 11.2 K/mm3 (4.0-10.0)
[2017-09-17 10:49] LABS: PLATELET ESTIMATE ADEQUATE
--- NOTE | 2017-09-17 11:39 | PN ---
Teaching Attending Note Name of Resident: Rusty Sevilla ATTENDING PHYSICIAN STATEMENT I saw and evaluated the patient. I reviewed the resident's note and discussed the case with the resident. I agree with the resident's findings and plan as documented. SUBJECTIVE: Patient seen and examined in the ICU. Awake and alert. S/P thrombectomy yesterday. Remains on IV Heparin. Still with discomfort in the Left thigh. No CP or SOB. Intake & Output 09/14/17 09/15/17 09/16/17 09/17/17 23:59 23:59 23:59 23:59 Intake Total 1580 2088.5 1230 860 Output Total 2000 1200 600 Balance 1580 88.5 30 260 Weight 194 lb 0.108 oz 196 lb 8 oz Last Vital Signs Temp Pulse Resp BP Pulse Ox 98.3 F 72 17 119/59 94 L 09/17/17 10:00 09/17/17 10:00 09/17/17 10:00 09/17/17 10:00 09/17/17 09:00 Active Medications Acetaminophen (Tylenol -) 650 mg PO Q8H PRN PRN Reason: FEVER Chlorhexidine Gluconate (Hibiclens For Decolonization -) 1 applic TP HS [facility] Last Admin: 09/16/17 22:00 Dose: 1 applic Heparin Sodium (Porcine) (Heparin -) 1,000 unit IVPUSH PRN PRN PRN Reason: Heparin Heparin Sodium (Porcine) (Heparin -) 5,000 unit IVPUSH PRN PRN PRN Reason: Heparin Last Admin: 09/17/17 09:00 Dose: 5,000 unit Hydrochlorothiazide (Hctz -) 25 mg PO DAILY [facility] Last Admin: 09/17/17 09:33 Dose: 25 mg Lactated Ringer's (Lactated Ringers Solution) 1,000 ml in 1,000 mls @ 75 mls/ hr IV ASDIR [facility] Last Admin: 09/17/17 08:54 Dose: Not Given Heparin Sodium (Porcine) 25, (000 unit/ Sodium Chloride) 500 mls @ 20 mls/hr IV TITR [facility]; Protocol Last Admin: 09/17/17 09:29 Dose: 1,000 unit/hr, 20 mls/hr Insulin Aspart (Novolog Vial Sliding Scale -) 1 vial SQ TIDAC [facility]; Protocol Last Admin: 09/17/17 07:00 Dose: Not Given Loratadine (Claritin -) 10 mg PO DAILY [facility] Last Admin: 09/17/17 09:37 Dose: 10 mg Metoprolol Succinate (Toprol Xl -) 100 mg PO DAILY [facility] Last Admin: 09/17/17 09:34 Dose: 100 mg Mupirocin (Bactroban Ointment (For Decolonization) -) 1 applic NS BID [facility] Stop: 09/21/17 21:59 Last Admin: 09/17/17 09:34 Dose: 1 applic Ondansetron HCl (Zofran Injection) 4 mg IVPUSH Q6H PRN PRN Reason: NAUSEA AND/OR VOMITING Pantoprazole Sodium (Protonix -) 40 mg PO DAILY [facility] Last Admin: 09/17/17 09:34 Dose: 40 mg Valsartan (Diovan -) 320 mg PO DAILY [facility] Last Admin: 09/17/17 09:33 Dose: 320 mg GENERAL: Awake, alert, and fully oriented, NAD EYES:conjunctiva clear. EARS, NOSE, THROAT: Moist mucous membranes. LUNGS: clear to auscultation bilaterally. No wheezes. No accessory muscle use. HEART: irregular rate, normal S1 and S2 without murmur, ABDOMEN: Soft, nontender, not distended, normoactive bowel sounds, no guarding, no rebound, no masses. King cath in situ haematuria. UPPER EXTREMITIES: 2+ pulses, warm, well-perfused.. LOWER EXTREMITIES: 2+ pulses, warm, well-perfused. Left leg swollen, catheter in situ in popliteal area NEUROLOGICAL: Non-focal PSYCHIATRIC: Cooperative. SKIN: Warm, dry, Laboratory Results - last 24 hr 09/16/17 09/17/17 09/17/17 15:55 05:30 05:30 WBC RBC Hgb Hct MCV MCH MCHC RDW Plt Count MPV Absolute Neuts (auto) Neutrophils % Neutrophils % (Manual) Band Neutrophils % Lymphocytes % Lymphocytes % (Manual) Monocytes % Monocytes % (Manual) Eosinophils % Eosinophils % (Manual) Basophils % Basophils % (Manual) Myelocytes % (Man) Promyelocytes % (Man) Blast Cells % (Manual) Nucleated RBC % Metamyelocytes Hypochromia Platelet Estimate Polychromasia Poikilocytosis Anisocytosis Microcytosis Macrocytosis PTT (Actin FS) 28.6 Fibrinogen 452.0 Sodium Potassium Chloride Carbon Dioxide Anion Gap BUN Creatinine Creat Clearance w eGFR POC Glucometer [id number] Random Glucose Calcium Phosphorus Magnesium Total Bilirubin AST ALT Alkaline Phosphatase Total Protein Albumin 09/17/17 09/17/17 09/17/17 05:30 05:30 10:25 WBC 11.1 H 11.2 H RBC 2.66 L 2.82 L Hgb 8.8 L 9.2 L Hct 25.8 L 27.4 L MCV 97.0 H 97.2 H MCH 33.1 32.7 MCHC 34.1 33.6 RDW 13.6 13.9 Plt Count 159 176 MPV 8.8 8.4 Absolute Neuts (auto) 8.3 Neutrophils % 75.0 Neutrophils % (Manual) 76.8 Band Neutrophils % 0.0 Lymphocytes % 6.8 L D Lymphocytes % (Manual) 9.1 Monocytes % 12.8 H Monocytes % (Manual) 9 Eosinophils % 5.2 H Eosinophils % (Manual) 1.0 Basophils % 0.2 Basophils % (Manual) 0.0 Myelocytes % (Man) 2 Promyelocytes % (Man) 0 Blast Cells % (Manual) 0 Nucleated RBC % 0 Metamyelocytes 2 Hypochromia 0 Platelet Estimate Adequate Polychromasia 1+ Poikilocytosis 1+ Anisocytosis 1+ Microcytosis 0 Macrocytosis 1+ PTT (Actin FS) Fibrinogen Sodium 141 Potassium 4.2 Chloride 106 Carbon Dioxide 26 Anion Gap 9 BUN 36 H Creatinine 1.7 H Creat Clearance w eGFR 28.63 POC Glucometer Random Glucose 134 H Calcium 8.0 L Phosphorus 3.6 Magnesium 1.7 L Total Bilirubin 0.7 AST 50 H ALT 22 Alkaline Phosphatase 59 D Total Protein 4.9 L Albumin 2.1 L ASSESSMENT/PLAN: Thrombotic occlusion of the left common femoral, external and internal iliac vein and distal IVC /filter S/P mechanicopharmacologic thrombolysis, placement of thrombolysis catheter HTN DM Hematuria Electrolyte disturbance IV Heparin: transition to Eliquis O2 as needed Follow CBC Glycemic control IVF Telemetry monitoring Dr Dickerson Critical care time spent in reviewing chart, evaluating patient and formulating plan - 36 minutes.
--- NOTE | 2017-09-17 11:44 | PN ---
Progress Note, Physician History of Present Illness: 82 year old woman with increasing left leg pain and swelling for several days. She came to ER when she couldn't walk. SCan shows extensive DVT of leg. She had a DVT in the same leg years ago and was treated with COumadin for several months. 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 Pt is currently POD1 with vascular surgery for her extensive DVT/thrombosis of her LLExt up to her IVC filter - Current Medication List Current Medications: Active Medications Acetaminophen (Tylenol -) 650 mg PO Q8H PRN PRN Reason: FEVER Chlorhexidine Gluconate (Hibiclens For Decolonization -) 1 applic TP HS [facility] Last Admin: 09/16/17 22:00 Dose: 1 applic Heparin Sodium (Porcine) (Heparin -) 1,000 unit IVPUSH PRN PRN PRN Reason: Heparin Heparin Sodium (Porcine) (Heparin -) 5,000 unit IVPUSH PRN PRN PRN Reason: Heparin Last Admin: 09/17/17 09:00 Dose: 5,000 unit Hydrochlorothiazide (Hctz -) 25 mg PO DAILY [facility] Last Admin: 09/17/17 09:33 Dose: 25 mg Lactated Ringer's (Lactated Ringers Solution) 1,000 ml in 1,000 mls @ 75 mls/ hr IV ASDIR [facility] Last Admin: 09/17/17 08:54 Dose: Not Given Heparin Sodium (Porcine) 25, (000 unit/ Sodium Chloride) 500 mls @ 20 mls/hr IV TITR [facility]; Protocol Last Admin: 09/17/17 09:29 Dose: 1,000 unit/hr, 20 mls/hr Insulin Aspart (Novolog Vial Sliding Scale -) 1 vial SQ TIDAC [facility]; Protocol Last Admin: 09/17/17 07:00 Dose: Not Given Loratadine (Claritin -) 10 mg PO DAILY [facility] Last Admin: 09/17/17 09:37 Dose: 10 mg Metoprolol Succinate (Toprol Xl -) 100 mg PO DAILY [facility] Last Admin: 09/17/17 09:34 Dose: 100 mg Mupirocin (Bactroban Ointment (For Decolonization) -) 1 applic NS BID [facility] Stop: 09/21/17 21:59 Last Admin: 09/17/17 09:34 Dose: 1 applic Ondansetron HCl (Zofran Injection) 4 mg IVPUSH Q6H PRN PRN Reason: NAUSEA AND/OR VOMITING Pantoprazole Sodium (Protonix -) 40 mg PO DAILY [facility] Last Admin: 09/17/17 09:34 Dose: 40 mg Valsartan (Diovan -) 320 mg PO DAILY [facility] Last Admin: 09/17/17 09:33 Dose: 320 mg - Objective Vital Signs: Vital Signs Temperature 98.3 F 09/17/17 10:00 Pulse Rate 72 09/17/17 10:00 Respiratory Rate 17 09/17/17 10:00 Blood Pressure 119/59 09/17/17 10:00 O2 Sat by Pulse Oximetry (%) 94 L 09/17/17 09:00 Eyes: Yes: WNL, Conjunctiva Clear, EOM Intact HENT: Yes: WNL, Atraumatic, Normocephalic Neck: Yes: WNL, Supple, Trachea Midline Cardiovascular: Yes: WNL, Regular Rate and Rhythm Respiratory: Yes: WNL, Regular, CTA Bilaterally Gastrointestinal: Yes: WNL, Normal Bowel Sounds Genitourinary: Yes: WNL Musculoskeletal: Yes: WNL Extremities: Yes: WNL Edema: No Integumentary: Yes: WNL Neurological: Yes: WNL, Alert, Oriented ...Motor Strength: WNL Psychiatric: Yes: WNL Labs: CBC, BMP 09/17/17 10:25 09/17/17 05:30 INR, PTT INR 1.14 (0.82-1.09) 09/12/17 22:53 Fibrinogen 452.0 mg/dL (238-498) 09/17/17 05:30 Problem List - Problems (1) Dehydration Code(s): E86.0 - DEHYDRATION (2) Femoral vein, deep venous thrombosis Code(s): I82.419 - ACUTE EMBOLISM AND THROMBOSIS OF UNSPECIFIED FEMORAL VEIN Qualifiers: Chronicity: acute Laterality: left Qualified Code(s): I82.412 - Acute embolism and thrombosis of left femoral vein (3) HTN (hypertension) Code(s): I10 - ESSENTIAL (PRIMARY) HYPERTENSION (4) Hypomagnesemia Code(s): E83.42 - HYPOMAGNESEMIA (5) T2DM (type 2 diabetes mellitus) Code(s): E11.9 - TYPE 2 DIABETES MELLITUS WITHOUT COMPLICATIONS (6) Benign positional vertigo Code(s): H81.10 - BENIGN PAROXYSMAL VERTIGO, UNSPECIFIED EAR (7) Bleeding Code(s): R58 - HEMORRHAGE, NOT ELSEWHERE CLASSIFIED Assessment/Plan POD2 with vascular surgery and tpa infussion for her extensive DVT/thrombosis of her LLExt up to her IVC filter dm HTN new 1 st degree avb apc's hemodynamicqaly stable plan; cardiac mcpherson stable echo pending ICU monitoring cont present rx cc time speent 35 min
[2017-09-17] MEDS ORDERED: HEMOQUE TEST 1 EACH EACH ONE (12:31)
--- NOTE | 2017-09-17 12:51 | PN ---
Progress Note, Physician Chief Complaint: Ms Bhat says her left leg feels better but she is having pain in her toe. Denies cp, sob, n/v. - Current Medication List Current Medications: Active Medications Acetaminophen (Tylenol -) 650 mg PO Q8H PRN PRN Reason: FEVER Chlorhexidine Gluconate (Hibiclens For Decolonization -) 1 applic TP HS [facility] Last Admin: 09/16/17 22:00 Dose: 1 applic Heparin Sodium (Porcine) (Heparin -) 1,000 unit IVPUSH PRN PRN PRN Reason: Heparin Heparin Sodium (Porcine) (Heparin -) 5,000 unit IVPUSH PRN PRN PRN Reason: Heparin Last Admin: 09/17/17 09:00 Dose: 5,000 unit Hydrochlorothiazide (Hctz -) 25 mg PO DAILY [facility] Last Admin: 09/17/17 09:33 Dose: 25 mg Lactated Ringer's (Lactated Ringers Solution) 1,000 ml in 1,000 mls @ 75 mls/ hr IV ASDIR [facility] Last Admin: 09/17/17 08:54 Dose: Not Given Heparin Sodium (Porcine) 25, (000 unit/ Sodium Chloride) 500 mls @ 20 mls/hr IV TITR [facility]; Protocol Last Admin: 09/17/17 09:29 Dose: 1,000 unit/hr, 20 mls/hr Insulin Aspart (Novolog Vial Sliding Scale -) 1 vial SQ TIDAC [facility]; Protocol Last Admin: 09/17/17 07:00 Dose: Not Given Loratadine (Claritin -) 10 mg PO DAILY [facility] Last Admin: 09/17/17 09:37 Dose: 10 mg Metoprolol Succinate (Toprol Xl -) 100 mg PO DAILY [facility] Last Admin: 09/17/17 09:34 Dose: 100 mg Mupirocin (Bactroban Ointment (For Decolonization) -) 1 applic NS BID [facility] Stop: 09/21/17 21:59 Last Admin: 09/17/17 09:34 Dose: 1 applic Ondansetron HCl (Zofran Injection) 4 mg IVPUSH Q6H PRN PRN Reason: NAUSEA AND/OR VOMITING Pantoprazole Sodium (Protonix -) 40 mg PO DAILY [facility] Last Admin: 09/17/17 09:34 Dose: 40 mg Valsartan (Diovan -) 320 mg PO DAILY [facility] Last Admin: 09/17/17 09:33 Dose: 320 mg - Objective Vital Signs: Vital Signs Temperature 36.8 C 09/17/17 10:00 Pulse Rate 72 09/17/17 10:00 Respiratory Rate 17 09/17/17 10:00 Blood Pressure 119/59 09/17/17 10:00 O2 Sat by Pulse Oximetry (%) 94 L 09/17/17 09:00 Constitutional: Yes: No Distress, Calm, Obese Cardiovascular: Yes: Regular Rate and Rhythm. No: Gallop, Murmur, Rub Respiratory: Yes: Regular, CTA Bilaterally. No: Rales, Rhonchi, Wheezes Gastrointestinal: Yes: Normal Bowel Sounds, Soft. No: Distention, Tenderness Extremities: Yes: Erythema (slight, wrapped) Edema: Yes Edema: LLE: 1+, RLE: 1+ Labs: CBC, BMP 09/17/17 10:25 09/17/17 05:30 INR, PTT INR 1.14 (0.82-1.09) 09/12/17 22:53 Fibrinogen 452.0 mg/dL (238-498) 09/17/17 05:30 Problem List - Problems (1) Femoral vein, deep venous thrombosis Code(s): I82.419 - ACUTE EMBOLISM AND THROMBOSIS OF UNSPECIFIED FEMORAL VEIN Qualifiers: Chronicity: acute Laterality: left Qualified Code(s): I82.412 - Acute embolism and thrombosis of left femoral vein (2) HTN (hypertension) Code(s): I10 - ESSENTIAL (PRIMARY) HYPERTENSION (3) T2DM (type 2 diabetes mellitus) Code(s): E11.9 - TYPE 2 DIABETES MELLITUS WITHOUT COMPLICATIONS (4) Hypomagnesemia Code(s): E83.42 - HYPOMAGNESEMIA Assessment/Plan (1) Femoral vein, deep venous thrombosis Assessment/Plan: -appreciate vascular surgery assistance -DVT extended to IVC filter -s/p thrombectomy -continue IV heparin Code(s): I82.419 - ACUTE EMBOLISM AND THROMBOSIS OF UNSPECIFIED FEMORAL VEIN Qualifiers: Chronicity: acute Laterality: left Qualified Code(s): I82.412 - Acute embolism and thrombosis of left femoral vein (2) HTN (hypertension) Assessment/Plan: -continue diovan, HCTZ, and toprol xl -controlled Code(s): I10 - ESSENTIAL (PRIMARY) HYPERTENSION (3) T2DM (type 2 diabetes mellitus) Assessment/Plan: -continue diabetic diet and SSI Code(s): E11.9 - TYPE 2 DIABETES MELLITUS WITHOUT COMPLICATIONS (4) Hypomagnesemia -replace (5) PALAK -monitor -slightly improved -may need to hold HCTZ and diovan if Cr does not decrease further
--- NOTE | 2017-09-17 14:13 | PN ---
Progress Note (short form) - Note Progress Note: Complains of left 1st toe pain with palpation She has a history of gout in the past. Calf and thigh edema improved. On IV heparin until evaluation OOB Start Eliquis 10 mg BID after sees her if no procedures planned. Problem List - Problems (1) Femoral vein, deep venous thrombosis Code(s): I82.419 - ACUTE EMBOLISM AND THROMBOSIS OF UNSPECIFIED FEMORAL VEIN Qualifiers: Chronicity: acute Laterality: left Qualified Code(s): I82.412 - Acute embolism and thrombosis of left femoral vein
[2017-09-17] MEDS ORDERED: ONDANSETRON 4 MG/2 ML VIAL IVPUSH PRN (15:40)
--- NOTE | 2017-09-17 15:49 | PN ---
Physical Exam: SUBJECTIVE: Patient seen and examined today in ICU. POD 1- mechanicopharmacologic thrombolysis, placement of thrombolysis catheter, lt common iliac vein stent. C/o pain in left toe. Denies CP or SOB. Pt being transferred to telemetry today. OBJECTIVE: Vital Signs Temperature 98.3 F 09/17/17 10:00 Pulse Rate 76 09/17/17 12:00 Respiratory Rate 15 09/17/17 12:00 Blood Pressure 116/57 09/17/17 12:00 O2 Sat by Pulse Oximetry (%) 94 L 09/17/17 09:00 GENERAL: The patient is awake, alert, and fully oriented, in no acute distress. HEAD: Normal with no signs of trauma. EYES: PERRL, extraocular movements intact, sclera anicteric, conjunctiva clear. No ptosis. ENT: Ears normal, nares patent, oropharynx clear without exudates, moist mucous membranes. NECK: Trachea midline, full range of motion, supple. LUNGS: Breath sounds equal, clear to auscultation bilaterally, no wheezes, no crackles, no accessory muscle use. HEART: Regular rate and rhythm, S1, S2 without murmur, rub or gallop. ABDOMEN: Soft, nontender, nondistended, normoactive bowel sounds, no guarding, no rebound, no hepatosplenomegaly, no masses. EXTREMITIES: 2+ pulses, warm, well-perfused, no edema. NEUROLOGICAL: Cranial nerves II through XII grossly intact. Normal speech, gait not observed. PSYCH: Normal mood, normal affect. SKIN: Warm, dry, normal turgor, no rashes or lesions noted Laboratory Results - last 24 hr 09/16/17 09/17/17 09/17/17 15:55 05:30 05:30 WBC RBC Hgb Hct MCV MCH MCHC RDW Plt Count MPV Absolute Neuts (auto) Neutrophils % Neutrophils % (Manual) Band Neutrophils % Lymphocytes % Lymphocytes % (Manual) Monocytes % Monocytes % (Manual) Eosinophils % Eosinophils % (Manual) Basophils % Basophils % (Manual) Myelocytes % (Man) Promyelocytes % (Man) Blast Cells % (Manual) Nucleated RBC % Metamyelocytes Hypochromia Platelet Estimate Polychromasia Poikilocytosis Anisocytosis Microcytosis Macrocytosis PTT (Actin FS) 28.6 Fibrinogen 452.0 Sodium Potassium Chloride Carbon Dioxide Anion Gap BUN Creatinine Creat Clearance w eGFR POC Glucometer [phone] Random Glucose Calcium Phosphorus Magnesium Total Bilirubin AST ALT Alkaline Phosphatase Total Protein Albumin 09/17/17 09/17/17 09/17/17 05:30 05:30 10:25 WBC 11.1 H 11.2 H RBC 2.66 L 2.82 L Hgb 8.8 L 9.2 L Hct 25.8 L 27.4 L MCV 97.0 H 97.2 H MCH 33.1 32.7 MCHC 34.1 33.6 RDW 13.6 13.9 Plt Count 159 176 MPV 8.8 8.4 Absolute Neuts (auto) 8.3 Neutrophils % 75.0 Neutrophils % (Manual) 76.8 Band Neutrophils % 0.0 Lymphocytes % 6.8 L D Lymphocytes % (Manual) 9.1 Monocytes % 12.8 H Monocytes % (Manual) 9 Eosinophils % 5.2 H Eosinophils % (Manual) 1.0 Basophils % 0.2 Basophils % (Manual) 0.0 Myelocytes % (Man) 2 Promyelocytes % (Man) 0 Blast Cells % (Manual) 0 Nucleated RBC % 0 Metamyelocytes 2 Hypochromia 0 Platelet Estimate Adequate Polychromasia 1+ Poikilocytosis 1+ Anisocytosis 1+ Microcytosis 0 Macrocytosis 1+ PTT (Actin FS) Fibrinogen Sodium 141 Potassium 4.2 Chloride 106 Carbon Dioxide 26 Anion Gap 9 BUN 36 H Creatinine 1.7 H Creat Clearance w eGFR 28.63 POC Glucometer Random Glucose 134 H Calcium 8.0 L Phosphorus 3.6 Magnesium 1.7 L Total Bilirubin 0.7 AST 50 H ALT 22 Alkaline Phosphatase 59 D Total Protein 4.9 L Albumin 2.1 L 09/17/17 12:37 WBC RBC Hgb Hct MCV MCH MCHC RDW Plt Count MPV Absolute Neuts (auto) Neutrophils % Neutrophils % (Manual) Band Neutrophils % Lymphocytes % Lymphocytes % (Manual) Monocytes % Monocytes % (Manual) Eosinophils % Eosinophils % (Manual) Basophils % Basophils % (Manual) Myelocytes % (Man) Promyelocytes % (Man) Blast Cells % (Manual) Nucleated RBC % Metamyelocytes Hypochromia Platelet Estimate Polychromasia Poikilocytosis Anisocytosis Microcytosis Macrocytosis PTT (Actin FS) Fibrinogen Sodium Potassium Chloride Carbon Dioxide Anion Gap BUN Creatinine Creat Clearance w eGFR POC Glucometer [phone] Random Glucose Calcium Phosphorus Magnesium Total Bilirubin AST ALT Alkaline Phosphatase Total Protein Albumin Active Medications Generic Name Dose Route Start Last Admin Trade Name Freq PRN Reason Stop Dose Admin Acetaminophen 650 mg 09/15/17 18:31 Tylenol - PO Q8H PRN FEVER Chlorhexidine Gluconate 1 applic 09/16/17 22:00 09/16/17 22:00 Hibiclens For Decolonization - TP 1 applic HS REAL Administration Heparin Sodium (Porcine) 1,000 unit 09/17/17 08:44 Heparin - IVPUSH PRN PRN Heparin Heparin Sodium (Porcine) 5,000 unit 09/17/17 08:44 09/17/17 09:00 Heparin - IVPUSH 5,000 unit PRN PRN Administration Heparin Hydrochlorothiazide 25 mg 09/16/17 10:00 09/17/17 09:33 Hctz - PO 25 mg DAILY REAL Administration Heparin Sodium (Porcine) 25, 500 mls @ 20 mls/hr 09/17/17 08:45 09/17/17 09: 29 000 unit/ Sodium Chloride IV 1,000 unit/hr TITR REAL 20 mls/hr Administration Protocol 1,000 UNIT/HR Insulin Aspart 1 vial 09/16/17 07:00 09/17/17 13:22 Novolog Vial Sliding Scale - SQ 2 units TIDAC REAL Administration Protocol Loratadine 10 mg 09/17/17 10:00 09/17/17 09:37 Claritin - PO 10 mg DAILY REAL Administration Metoprolol Succinate 100 mg 09/16/17 10:00 09/17/17 09:34 Toprol Xl - PO 100 mg DAILY REAL Administration Mupirocin 1 applic 09/16/17 22:00 09/17/17 09:34 Bactroban Ointment (For Decolonization) - NS 09/21/17 21:59 1 applic BID REAL Administration Ondansetron HCl 4 mg 09/15/17 17:55 Zofran Injection IVPUSH Q6H PRN NAUSEA AND/OR VOMITING Pantoprazole Sodium 40 mg 09/16/17 10:00 09/17/17 09:34 Protonix - PO 40 mg DAILY REAL Administration Valsartan 320 mg 09/16/17 10:00 09/17/17 09:33 Diovan - PO 320 mg DAILY REAL Administration ASSESSMENT/PLAN: Patient is an 82 year old female with a significant PMH of HLD, HTN, and borderline DM who presented to the emergency department with two day history of left leg swelling and recent lower back pain. Femoral Vein, Deep venous Thrombosis. S/P mechanicopharmacologic thrombolysis, placement of thrombolysis catheter, lt common iliac vein stent - Heparin gtt, switch to eliquis 10 mg BID after seen by urology (possible pelvic hematoma) - follow cbc -telemetry monitoring - monitor aPTT HTN HCTZ 25 mg po daily Valsartan 320 mg po daily Metoprolol succinate 100 mg po daily DM BGM c/w novolog sliding scale FEN no fluids Monitor electrolytes Regular diet DVT ppx Heparin gtt. Switch to Eliquis once seen by urology. Dispo- transfer to telem. Visit type - Emergency Visit Emergency Visit: Yes ED Registration Date: 09/12/17 Care time: The patient presented to the Emergency Department on the above date and was hospitalized for further evaluation of their emergent condition. - New Patient This patient is new to me today: Yes Date on this admission: 09/17/17 - Critical Care Critical Care patient: Yes Total Critical Care Time (in minutes): 35 Critical Care Statement: The care of this patient involved high complexity decision making to prevent further life threatening deterioration of the patient 's condition and/or to evaluate & treat vital organ system(s) failure or risk of failure.
[2017-09-17] MEDS: ACETAMINOPHEN 325 MG TABLET (FP) PO PRN (17:50)
[2017-09-17] MEDS ORDERED: COLCHICINE 0.6 MG TABLET (FP) PO ONE ×2 (18:00→18:15)
[2017-09-18] MEDS: INSULIN SLIDING SCALE (NOVOLOG) 1 VIAL SQ SCH ×3 (06:19→17:30)
[2017-09-18 06:52] LABS: HEMATOCRIT 25.4 % (32.4-45.2); HEMOGLOBIN 8.7 GM/dL (10.7-15.3); MCH 33.2 pg (25.7-33.7); MCHC 34.5 g/dl (32.0-36.0); MEAN CELL VOLUME 96.1 fl (80-96); MEAN PLT VOLUME 8.6 fl (7.5-11.1); PLATELET COUNT 192 K/MM3 (134-434); RBC 2.64 M/mm3 (3.60-5.2); RDW 13.9 % (11.6-15.6); WHITE BLOOD COUNT 9.1 K/mm3 (4.0-10.0)
--- NOTE | 2017-09-18 09:24 | PN ---
Progress Note (short form) - Note Progress Note: CT scan with hematoma. bladder is displaced but not involved. ok to start anticoagulations.
[2017-09-18] MEDS ORDERED: VALSARTAN 160 MG TABLET (UD) PO SCH (10:00)
[2017-09-18] MEDS ORDERED: HYDROCHLOROTHIAZIDE 25 MG TABLET (FP) PO SCH (10:00)
[2017-09-18] MEDS: LORATADINE 10 MG TABLET PO SCH (10:51)
[2017-09-18] MEDS: PANTOPRAZOLE 40 MG TABLET (FP) PO SCH (10:51)
[2017-09-18 11:32] LABS: CHLORIDE 108 mmol/L (98-107); POTASSIUM 4.3 mmol/L (3.5-5.1); SODIUM 142 mmol/L (136-145)
[2017-09-18] MEDS: APIXABAN 5 MG TABLET PO SCH ×2 (12:00→21:46)
--- NOTE | 2017-09-18 12:11 | PN ---
Progress Note, Physician Chief Complaint: Ms Bhat complains of L toe pain. No cp, sob, n/v. - Current Medication List Current Medications: Active Medications Acetaminophen (Tylenol -) 650 mg PO Q8H PRN PRN Reason: FEVER Last Admin: 09/17/17 17:50 Dose: 650 mg Apixaban (Eliquis -) 10 mg PO BID [facility] Stop: 09/25/17 11:29 Hydrochlorothiazide (Hctz -) 25 mg PO DAILY [facility] Last Admin: 09/18/17 10:51 Dose: 25 mg Insulin Aspart (Novolog Vial Sliding Scale -) 1 vial SQ TIDAC [facility]; Protocol Last Admin: 09/18/17 06:19 Dose: Not Given Loratadine (Claritin -) 10 mg PO DAILY [facility] Last Admin: 09/18/17 10:51 Dose: 10 mg Metoprolol Succinate (Toprol Xl -) 100 mg PO DAILY [facility] Last Admin: 09/18/17 10:50 Dose: 100 mg Ondansetron HCl (Zofran Injection) 4 mg IVPUSH Q6H PRN PRN Reason: NAUSEA AND/OR VOMITING Pantoprazole Sodium (Protonix -) 40 mg PO DAILY [facility] Last Admin: 09/18/17 10:51 Dose: 40 mg Valsartan (Diovan -) 320 mg PO DAILY [facility] Last Admin: 09/18/17 10:50 Dose: 320 mg - Objective Vital Signs: Vital Signs Temperature 36.8 C 09/18/17 09:00 Pulse Rate 84 09/18/17 09:00 Respiratory Rate 20 09/18/17 09:00 Blood Pressure 140/70 09/18/17 09:00 O2 Sat by Pulse Oximetry (%) 97 09/17/17 22:29 Constitutional: Yes: No Distress, Calm, Obese Cardiovascular: Yes: Regular Rate and Rhythm. No: Gallop, Murmur, Rub Respiratory: Yes: Regular, CTA Bilaterally. No: Rales, Rhonchi, Wheezes Gastrointestinal: Yes: Normal Bowel Sounds, Soft. No: Distention, Tenderness Extremities: Yes: Erythema (L toe) Edema: Yes Edema: LLE: 1+ Labs: CBC, BMP 09/18/17 05:50 09/18/17 05:50 INR, PTT INR 1.14 (0.82-1.09) 09/12/17 22:53 Fibrinogen 452.0 mg/dL (238-498) 09/17/17 05:30 Problem List - Problems (1) Femoral vein, deep venous thrombosis Code(s): I82.419 - ACUTE EMBOLISM AND THROMBOSIS OF UNSPECIFIED FEMORAL VEIN Qualifiers: Chronicity: acute Laterality: left Qualified Code(s): I82.412 - Acute embolism and thrombosis of left femoral vein (2) HTN (hypertension) Code(s): I10 - ESSENTIAL (PRIMARY) HYPERTENSION (3) T2DM (type 2 diabetes mellitus) Code(s): E11.9 - TYPE 2 DIABETES MELLITUS WITHOUT COMPLICATIONS (4) Hypomagnesemia Code(s): E83.42 - HYPOMAGNESEMIA (5) Gout Code(s): M10.9 - GOUT, UNSPECIFIED Qualifiers: Gout site: foot Gout etiology: due to renal impairment Chronicity: acute Laterality: left Qualified Code(s): M10.372 - Gout due to renal impairment , left ankle and foot Assessment/Plan (1) Femoral vein, deep venous thrombosis Assessment/Plan: -appreciate vascular surgery assistance -s/p thrombectomy -safe to transition to eliquis today -eliquis 10mg bid x 7d then 5mg bid Code(s): I82.419 - ACUTE EMBOLISM AND THROMBOSIS OF UNSPECIFIED FEMORAL VEIN Qualifiers: Chronicity: acute Laterality: left Qualified Code(s): I82.412 - Acute embolism and thrombosis of left femoral vein (2) HTN (hypertension) Assessment/Plan: -continue toprol xl -controlled -will add amlodipine 5mg daily since stopping diovan and HCTZ for PALAK Code(s): I10 - ESSENTIAL (PRIMARY) HYPERTENSION (3) T2DM (type 2 diabetes mellitus) Assessment/Plan: -continue diabetic diet and SSI Code(s): E11.9 - TYPE 2 DIABETES MELLITUS WITHOUT COMPLICATIONS (4) Hypomagnesemia -replaced (5) PALAK -worsened today -stop HCTZ and diovan -urine studies -nephrology consult -hydration with IVF (6) Gout flare -will not place on colchicine since with PALAK -short course prednisone Dispo -will need SNF placement -discharge when renal function stabilizes/improves
[2017-09-18] MEDS ORDERED: predniSONE 20 MG TABLET (UD) PO SCH (12:15)
[2017-09-18 12:21] LABS: ANION GAP 11 (8-16); BLOOD UREA NITROGEN 34 mg/dL (7-18); CO2 23 mmol/L (21-32); CREATININE 1.9 mg/dL (0.55-1.02); GLUCOSE,RANDOM 112 mg/dL (74-106)
--- NOTE | 2017-09-18 12:47 | PN ---
Progress Note, Physician History of Present Illness: 82 year old woman with increasing left leg pain and swelling for several days. She came to ER when she couldn't walk. SCan shows extensive DVT of leg. She had a DVT in the same leg years ago and was treated with COumadin for several months. No history of recent surgery or bleeding in GI, or [employer]. Pt is currently POD1 with vascular surgery for her extensive DVT/thrombosis of her LLExt up to her IVC filter - Current Medication List Current Medications: Active Medications Acetaminophen (Tylenol -) 650 mg PO Q8H PRN PRN Reason: FEVER Last Admin: 09/17/17 17:50 Dose: 650 mg Apixaban (Eliquis -) 10 mg PO BID [facility] Stop: 09/25/17 11:29 Hydrochlorothiazide (Hctz -) 25 mg PO DAILY [facility] Last Admin: 09/18/17 10:51 Dose: 25 mg Insulin Aspart (Novolog Vial Sliding Scale -) 1 vial SQ TIDAC [facility]; Protocol Last Admin: 09/18/17 06:19 Dose: Not Given Loratadine (Claritin -) 10 mg PO DAILY [facility] Last Admin: 09/18/17 10:51 Dose: 10 mg Metoprolol Succinate (Toprol Xl -) 100 mg PO DAILY [facility] Last Admin: 09/18/17 10:50 Dose: 100 mg Ondansetron HCl (Zofran Injection) 4 mg IVPUSH Q6H PRN PRN Reason: NAUSEA AND/OR VOMITING Pantoprazole Sodium (Protonix -) 40 mg PO DAILY [facility] Last Admin: 09/18/17 10:51 Dose: 40 mg Prednisone (Deltasone -) 40 mg PO DAILY [facility] Stop: 09/21/17 12:14 Valsartan (Diovan -) 320 mg PO DAILY [facility] Last Admin: 09/18/17 10:50 Dose: 320 mg - Objective Vital Signs: Vital Signs Temperature 98.3 F 09/18/17 09:00 Pulse Rate 84 09/18/17 09:00 Respiratory Rate 20 09/18/17 09:00 Blood Pressure 140/70 09/18/17 09:00 O2 Sat by Pulse Oximetry (%) 97 09/17/17 22:29 Eyes: Yes: WNL, Conjunctiva Clear, EOM Intact HENT: Yes: WNL, Atraumatic, Normocephalic Neck: Yes: WNL, Supple, Trachea Midline Cardiovascular: Yes: WNL, Regular Rate and Rhythm Respiratory: Yes: WNL, Regular, CTA Bilaterally Gastrointestinal: Yes: WNL, Normal Bowel Sounds Genitourinary: Yes: WNL Musculoskeletal: Yes: WNL Extremities: Yes: WNL Edema: No Integumentary: Yes: WNL Neurological: Yes: WNL, Alert, Oriented ...Motor Strength: WNL Psychiatric: Yes: WNL Labs: CBC, BMP 09/18/17 05:50 09/18/17 05:50 INR, PTT INR 1.14 (0.82-1.09) 09/12/17 22:53 Fibrinogen 452.0 mg/dL (238-498) 09/17/17 05:30 Problem List - Problems (1) Dehydration Code(s): E86.0 - DEHYDRATION (2) Femoral vein, deep venous thrombosis Code(s): I82.419 - ACUTE EMBOLISM AND THROMBOSIS OF UNSPECIFIED FEMORAL VEIN Qualifiers: Chronicity: acute Laterality: left Qualified Code(s): I82.412 - Acute embolism and thrombosis of left femoral vein (3) HTN (hypertension) Code(s): I10 - ESSENTIAL (PRIMARY) HYPERTENSION (4) Hypomagnesemia Code(s): E83.42 - HYPOMAGNESEMIA (5) T2DM (type 2 diabetes mellitus) Code(s): E11.9 - TYPE 2 DIABETES MELLITUS WITHOUT COMPLICATIONS (6) Benign positional vertigo Code(s): H81.10 - BENIGN PAROXYSMAL VERTIGO, UNSPECIFIED EAR (7) Bleeding Code(s): R58 - HEMORRHAGE, NOT ELSEWHERE CLASSIFIED Assessment/Plan POD3 with vascular surgery and tpa infussion for her extensive DVT/thrombosis of her LLExt up to her IVC filter dm HTN new 1 st degree avb apc's hemodynamicqaly stable echo nl plan; cardiac mcpherson stable telemetry monitoring cont present rx
[2017-09-18] MEDS ORDERED: MINERAL OIL ENEMA 133 ML ENEMA PR ONE (13:15)
[2017-09-18] MEDS ORDERED: SODIUM CHLORIDE 1,000 ML IV SCH (13:30)
[2017-09-18] MEDS: DOCUSATE SODIUM 100 MG CAPSULE (FP) PO SCH ×2 (13:49→21:49)
--- NOTE | 2017-09-18 15:50 | PN ---
Progress Note (short form) - Note Progress Note: POD#2 Pt states that she attempted to ambulate with PT but had pain in her great right toe. Overall her leg is better/less tender. Her urine is clear/no more blood. Vital Signs Period Temp Pulse Resp BP Sys/Aldana Pulse Ox Last 24 Hr 98.0 F-98.3 F 74-85 18-20 113-146/51-70 97-99 FC: urine clear/hansel colored GEN: Alert and comfortable, resting in bed Left leg: +2DP/PT pulse, foot swollen/left great toe with pain/no erythema. ADAMA wrap/kerlix changed/ orginial tegaderm gauze dressing left in place. No evidence of hematoma/ecchymosis behind the knee. Reapply kerlix and adama wrap. CBC, BMP /06/18 05:50 07/06/18 05:50 A/p: 82 yo female s/p left iliac/femoral vein thromblysis with stent in left iliac vein Overall, pt is doing well stopped IV heparin and started eloquis. Hematuria resolved. Awaiting consult. Cont to elevate Left leg and adama wrap to decrease swelling. D/w Dr. Farrell
--- NOTE | 2017-09-18 16:58 | CONSULT ---
Consult Consult Specialty:: Nephrology Reason for Consultation:: PALAK - History of Present Illness Chief Complaint: initially presented with left leg swelling History of Present Illness: Pt is an 82 year old female with pmhx of HLD, nephrolithiasis, DM and HTN who presents to the ER with left leg swelling that had been getting worse. She was found to have a DVT. Pt was admitted for treatment. I was called to evaluate her for PALAK. She denies history of CKD. She get IV contrast. She denies shortness of breath. She denies nsaid use. She did have hematuria that has resolved. She has history of recurrent UTI and was on macrobid in the past. 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 - History Source History Provided By: Patient, Family Member, Medical Record - Past Medical History [employer]CH[employer] TR[employer]ER: Yes: Vertigo Cardio/Vascular: Yes: HTN ...: No Rheumatology: Yes: Fibromyalgia Endocrine: Yes: Diabetes Mellitus - Alcohol/Substance Use Hx Alcohol Use: No - Smoking History Smoking history: Never smoked Have you smoked in the past 12 months: No Home Medications - Allergies Allergies/Adverse Reactions: Allergies Allergy/AdvReac Type Severity Reaction Status Date / Time No Known Drug Allergies Allergy Verified 09/15/17 21:47 morphine AdvReac Mild Nausea Verified 09/12/17 21:08 - Home Medications Home Medications: Ambulatory Orders Aspirin [ASA -] 81 mg PO DAILY 05/14/13 Meclizine HCl [Antivert -] 25 mg PO PRN 05/14/13 Olmesartan/Hydrochlorothiazide [Benicar Hct 40-25 mg Tablet] 1 each PO DAILY 03/29 Omeprazole 40 mg PO DAILY 05/14/13 Trospium Chloride 20 mg PO BID 05/14/13 metFORMIN HCL [Glucophage -] 500 mg PO DAILY 05/14/13 Metoprolol Succinate 100 mg PO DAILY 05/15/13 Family Disease History - Family Disease History Family History: Denies Review of Systems - Review of Systems Constitutional: reports: Malaise Eyes: reports: No Symptoms HENT: reports: No Symptoms Neck: reports: No Symptoms Cardiovascular: reports: No Symptoms Respiratory: reports: No Symptoms Gastrointestinal: reports: No Symptoms Genitourinary: reports: No Symptoms Musculoskeletal: reports: Other (left leg pain) Neurological: reports: No Symptoms Endocrine: reports: No Symptoms Hematology/Lymphatic: reports: Other (left leg dvt) Physical Exam Vital Signs: Vital Signs Temperature 98.1 F 09/18/17 14:00 Pulse Rate 74 09/18/17 14:00 Respiratory Rate 20 09/18/17 14:00 Blood Pressure 139/69 09/18/17 14:00 O2 Sat by Pulse Oximetry (%) 97 09/17/17 22:29 Constitutional: Yes: Calm Eyes: Yes: Conjunctiva Clear HENT: Yes: Atraumatic Neck: Yes: Supple Cardiovascular: Yes: S1, S2 Respiratory: Yes: CTA Bilaterally Gastrointestinal: Yes: Normal Bowel Sounds, Soft Renal/: Yes: King Present Musculoskeletal: Yes: Other (left leg pain) Edema: Yes Edema: LLE: 1+ Neurological: Yes: Oriented Psychiatric: Yes: Oriented Labs: CBC, BMP 09/18/17 05:50 09/18/17 05:50 Selected Entries 09/17/17 09/17/17 09/17/17 15:30 17:30 20:37 Blood Pressure 137/58 146/64 115/51 09/18/17 09/18/17 09/18/17 01:00 05:52 14:00 Blood Pressure 113/56 136/61 139/69 Laboratory Tests 05/14/13 05/15/13 09/12/17 11:24 07:00 22:53 Creatinine 1.1 1.0 1.4 H 09/13/17 09/14/17 09/15/17 07:30 06:20 06:15 Creatinine 1.3 H 1.2 H 1.1 H 09/16/17 09/17/17 09/18/17 08:19 05:30 05:50 Creatinine 1.8 H 1.7 H 1.9 H Imaging - Results Cat Scan: Report Reviewed Problem List - Problems (1) PALAK (acute kidney injury) Code(s): N17.9 - ACUTE KIDNEY FAILURE, UNSPECIFIED (2) Femoral vein, deep venous thrombosis Code(s): I82.419 - ACUTE EMBOLISM AND THROMBOSIS OF UNSPECIFIED FEMORAL VEIN Qualifiers: Chronicity: acute Laterality: left Qualified Code(s): I82.412 - Acute embolism and thrombosis of left femoral vein (3) HTN (hypertension) Code(s): I10 - ESSENTIAL (PRIMARY) HYPERTENSION (4) T2DM (type 2 diabetes mellitus) Code(s): E11.9 - TYPE 2 DIABETES MELLITUS WITHOUT COMPLICATIONS Assessment/Plan Current Medications Generic Name Dose Route Start Last Admin Trade Name Freavinash PRN Reason Stop Dose Admin Acetaminophen 650 mg 09/17/17 15:40 09/17/17 17:50 Tylenol - PO 650 mg Q8H PRN Administration FEVER Apixaban 10 mg 09/18/17 11:30 09/18/17 12:00 Eliquis - PO 09/25/17 11:29 10 mg BID REAL Administration Docusate Sodium 100 mg 09/18/17 13:30 09/18/17 13:49 Colace - PO 100 mg BID REAL Administration Sodium Chloride 1,000 mls @ 50 mls/hr 09/18/17 13:30 09/18/17 16:50 Normal Saline - IV 09/19/17 13:19 50 mls/hr ASDIR REAL Administration Insulin Aspart 1 vial 09/17/17 16:30 09/18/17 11:48 Novolog Vial Sliding Scale - SQ Not Given TIDAC [facility] Protocol Loratadine 10 mg 09/18/17 10:00 09/18/17 10:51 Claritin - PO 10 mg DAILY [facility] Administration Metoprolol Succinate 100 mg 09/18/17 10:00 09/18/17 10:50 Toprol Xl - PO 100 mg DAILY [facility] Administration Ondansetron HCl 4 mg 09/17/17 15:40 Zofran Injection IVPUSH Q6H PRN NAUSEA AND/OR VOMITING Pantoprazole Sodium 40 mg 09/18/17 10:00 09/18/17 10:51 Protonix - PO 40 mg DAILY REAL Administration Polyethylene Glycol 17 gm 09/18/17 22:00 Miralax (For Daily Use) - PO BID REAL Prednisone 40 mg 09/18/17 12:15 09/18/17 12:49 Deltasone - PO 09/21/17 12:14 40 mg DAILY REAL Administration Impression 1. PALAK 2. DVT 3. nephrolithiasis 4. HTN 5. DM Plan - check kidney and bladder ultrasound - send ua - urology eval - agree with holding arb and hctz, cont to monitor volume status - repeat bmp in am - check urine lytes and low vision therapist - metformin held - discussed plan with family Dr Medrano
[2017-09-18] MEDS ORDERED: SODIUM CHLORIDE 0.45% 1,000 ML IV SCH (17:15)
--- NOTE | 2017-09-18 19:01 | CON.GU ---
Consult Consult Specialty:: Referred by:: Medicine Reason for Consultation:: hematuria - History of Present Illness Chief Complaint: hematuria History of Present Illness: 82 year old woman with left sided LE DVTs. She underwent a procedure with vascular. She had a catheter placed with some initial hematuria which is now improved. Eliquis is considered. 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 Cardio/Vascular: Yes: HTN Renal/: No: Renal Failure, Renal Inusuff, BPH, Cancer, Hematuria, Hemodialysis , Neurogenic Bladder, Renal Calculi, UTI, Other ...: No Rheumatology: Yes: Fibromyalgia Endocrine: Yes: Diabetes Mellitus - Alcohol/Substance Use Hx Alcohol Use: No - Smoking History Smoking history: Never smoked Have you smoked in the past 12 months: No Home Medications - Allergies Allergies/Adverse Reactions: Allergies Allergy/AdvReac Type Severity Reaction Status Date / Time No Known Drug Allergies Allergy Verified 09/15/17 21:47 morphine AdvReac Mild Nausea Verified 09/12/17 21:08 - Home Medications Home Medications: Ambulatory Orders Aspirin [ASA -] 81 mg PO DAILY 05/14/13 Meclizine HCl [Antivert -] 25 mg PO PRN 05/14/13 Olmesartan/Hydrochlorothiazide [Benicar Hct 40-25 mg Tablet] 1 each PO DAILY 03/29 Omeprazole 40 mg PO DAILY 05/14/13 Trospium Chloride 20 mg PO BID 05/14/13 metFORMIN HCL [Glucophage -] 500 mg PO DAILY 05/14/13 Metoprolol Succinate 100 mg PO DAILY 05/15/13 Review of Systems - Review of Systems Genitourinary: reports: Hematuria Physical Exam- Vital Signs: Vital Signs Temperature 98.1 F 09/18/17 14:00 Pulse Rate 74 09/18/17 14:00 Respiratory Rate 20 09/18/17 14:00 Blood Pressure 139/69 09/18/17 14:00 O2 Sat by Pulse Oximetry (%) 97 09/17/17 22:29 Constitutional: Yes: Well Nourished, No Distress, Calm Gastrointestinal: Yes: WNL, Normal Bowel Sounds Renal/: Yes: King Present. No: Hematuria Kidneys: Yes: WNL Pelvis: Yes: Bladder Non Palpable. No: Bladder Distended Labs: CBC, BMP 09/18/17 05:50 09/18/17 05:50 Imaging - Results Cat Scan: Report Reviewed Problem List - Problems (1) Hematuria Assessment/Plan: is resolved. no contraindication to eliquis Code(s): R31.9 - HEMATURIA, UNSPECIFIED
[2017-09-18 21:33] LABS: URINE APPEARANCE CLEAR; URINE BILIRUBIN NEGATIVE (<2.0 mg/dL); URINE COLOR LTYELLOW; URINE GLUCOSE (UA) NEGATIVE (NEGATIVE); URINE KETONE NEGATIVE (NEGATIVE); URINE LEUK ESTERASE NEGATIVE (NEGATIVE); URINE NITRITE NEGATIVE (NEGATIVE); URINE PROTEIN NEGATIVE (NEGATIVE); URINE UROBILINOGEN NEGATIVE mg/dL (0.2-1.0)
[2017-09-18 21:37] LABS: EPI CELLS RARE /HPF (FEW); URINE MUCUS RARE
[2017-09-18] MEDS: POLYETHYLENE GLYCOL 3350 119 GM BTL PO SCH (21:49)
[2017-09-19] MEDS: APIXABAN 5 MG TABLET PO SCH ×3 (00:56→22:20)
[2017-09-19] MEDS: INSULIN SLIDING SCALE (NOVOLOG) 1 VIAL SQ SCH ×3 (06:42→17:39)
[2017-09-19 07:59] LABS: HEMATOCRIT 27.1 % (32.4-45.2); HEMOGLOBIN 9.3 GM/dL (10.7-15.3); MCH 33.4 pg (25.7-33.7); MCHC 34.5 g/dl (32.0-36.0); MEAN CELL VOLUME 96.9 fl (80-96); MEAN PLT VOLUME 8.3 fl (7.5-11.1); PLATELET COUNT 221 K/MM3 (134-434); RBC 2.79 M/mm3 (3.60-5.2); RDW 13.4 % (11.6-15.6); WHITE BLOOD COUNT 7.5 K/mm3 (4.0-10.0)
--- NOTE | 2017-09-19 08:31 | PN ---
Progress Note, Physician Chief Complaint: Left LE and toe pain is improving History of Present Illness: 82F with HTN HLD DM2 p/w left leg swelling over past day. She has had difficulty walking as well since the afternoon. Has had a DVT in the same leg about 20 years ago, treated short term coumadin. recently went to [facility] about [address] 3 wks ago. s/p thrombectomy on thrombolysis - Current Medication List Current Medications: Active Medications Acetaminophen (Tylenol -) 650 mg PO Q8H PRN PRN Reason: FEVER Last Admin: 09/17/17 17:50 Dose: 650 mg Apixaban (Eliquis -) 10 mg PO BID [facility] Stop: 09/25/17 11:29 Last Admin: 09/19/17 00:56 Dose: 10 mg Docusate Sodium (Colace -) 100 mg PO BID [facility] Last Admin: 09/18/17 21:49 Dose: 100 mg Sodium Chloride (1/2 Normal Saline) 1,000 mls @ 50 mls/hr IV ASDIR [facility] Stop: 09/19/17 17:04 Last Admin: 09/18/17 18:05 Dose: 50 mls/hr Insulin Aspart (Novolog Vial Sliding Scale -) 1 vial SQ TIDAC [facility]; Protocol Last Admin: 09/19/17 06:42 Dose: 4 units Loratadine (Claritin -) 10 mg PO DAILY [facility] Last Admin: 09/18/17 10:51 Dose: 10 mg Metoprolol Succinate (Toprol Xl -) 100 mg PO DAILY [facility] Last Admin: 09/18/17 10:50 Dose: 100 mg Ondansetron HCl (Zofran Injection) 4 mg IVPUSH Q6H PRN PRN Reason: NAUSEA AND/OR VOMITING Pantoprazole Sodium (Protonix -) 40 mg PO DAILY [facility] Last Admin: 09/18/17 10:51 Dose: 40 mg Polyethylene Glycol (Miralax (For Daily Use) -) 17 gm PO BID [facility] Last Admin: 09/18/17 21:49 Dose: Not Given Prednisone (Deltasone -) 40 mg PO DAILY [facility] Stop: 09/21/17 12:14 Last Admin: 09/18/17 12:49 Dose: 40 mg - Objective Vital Signs: Vital Signs Temperature 98.1 F 09/19/17 06:00 Pulse Rate 74 09/19/17 06:00 Respiratory Rate 20 09/19/17 06:00 Blood Pressure 157/64 09/19/17 06:00 O2 Sat by Pulse Oximetry (%) 97 09/18/17 22:00 Elderly F not in distress c/o Left LE Pain and swelling HEENT: Mm moist, o anemia, PERRLA EOMI NECK: No JVd No Bruit CHEST: CTA B/L CVS; S1S2 R no m/g/r ABD; No distention, non tender Bs + EXT: Left LE swelling and Tenderness s/p thrombectomy and thrombolysis, Left Toe pain is better ONLINE CONTENT COORDINATOR: AOX3 non foccal Labs: CBC, BMP 09/19/17 06:20 INR, PTT INR 1.14 (0.82-1.09) 09/12/17 22:53 Fibrinogen 452.0 mg/dL (238-498) 09/17/17 05:30 Problem List - Problems (1) Femoral vein, deep venous thrombosis Assessment/Plan: Extensive DVt s/p Thrombectomy and thrombolysis and Iliac V stent on PO AC Code(s): I82.419 - ACUTE EMBOLISM AND THROMBOSIS OF UNSPECIFIED FEMORAL VEIN Qualifiers: Chronicity: acute Laterality: left Qualified Code(s): I82.412 - Acute embolism and thrombosis of left femoral vein (2) HTN (hypertension) Assessment/Plan: Well controlled cont home meds Code(s): I10 - ESSENTIAL (PRIMARY) HYPERTENSION (3) T2DM (type 2 diabetes mellitus) Assessment/Plan: Hold Metformin add Correction dose Lispro AC F/U HBa1C Code(s): E11.9 - TYPE 2 DIABETES MELLITUS WITHOUT COMPLICATIONS (4) PALAK (acute kidney injury) Assessment/Plan: Most likely NELLA F/U BMP Code(s): N17.9 - ACUTE KIDNEY FAILURE, UNSPECIFIED (5) Hematuria Assessment/Plan: Post Cathter now resolved Code(s): R31.9 - HEMATURIA, UNSPECIFIED (6) Gout Assessment/Plan: On Prednisone and Tylenol Code(s): M10.9 - GOUT, UNSPECIFIED Qualifiers: Gout site: foot Gout etiology: due to renal impairment Chronicity: acute Laterality: left Qualified Code(s): M10.372 - Gout due to renal impairment , left ankle and foot
--- NOTE | 2017-09-19 08:36 | PN ---
Progress Note, Physician History of Present Illness: 82 year old woman with increasing left leg pain and swelling for several days. She came to ER when she couldn't walk. SCan shows extensive DVT of leg. She had a DVT in the same leg years ago and was treated with COumadin for several months. No history of recent surgery or bleeding in GI, or [employer]. Pt is currently POD1 with vascular surgery for her extensive DVT/thrombosis of her LLExt up to her IVC filter - Current Medication List Current Medications: Active Medications Acetaminophen (Tylenol -) 650 mg PO Q8H PRN PRN Reason: FEVER Last Admin: 09/17/17 17:50 Dose: 650 mg Apixaban (Eliquis -) 10 mg PO BID [facility] Stop: 09/25/17 11:29 Last Admin: 09/19/17 00:56 Dose: 10 mg Docusate Sodium (Colace -) 100 mg PO BID [facility] Last Admin: 09/18/17 21:49 Dose: 100 mg Sodium Chloride (1/2 Normal Saline) 1,000 mls @ 50 mls/hr IV ASDIR [facility] Stop: 09/19/17 17:04 Last Admin: 09/18/17 18:05 Dose: 50 mls/hr Insulin Aspart (Novolog Vial Sliding Scale -) 1 vial SQ TIDAC [facility]; Protocol Last Admin: 09/19/17 06:42 Dose: 4 units Loratadine (Claritin -) 10 mg PO DAILY [facility] Last Admin: 09/18/17 10:51 Dose: 10 mg Metoprolol Succinate (Toprol Xl -) 100 mg PO DAILY [facility] Last Admin: 09/18/17 10:50 Dose: 100 mg Ondansetron HCl (Zofran Injection) 4 mg IVPUSH Q6H PRN PRN Reason: NAUSEA AND/OR VOMITING Pantoprazole Sodium (Protonix -) 40 mg PO DAILY [facility] Last Admin: 09/18/17 10:51 Dose: 40 mg Polyethylene Glycol (Miralax (For Daily Use) -) 17 gm PO BID [facility] Last Admin: 09/18/17 21:49 Dose: Not Given Prednisone (Deltasone -) 30 mg PO DAILY [facility] Stop: 09/21/17 12:14 - Objective Vital Signs: Vital Signs Temperature 98.1 F 09/19/17 06:00 Pulse Rate 74 09/19/17 06:00 Respiratory Rate 20 09/19/17 06:00 Blood Pressure 157/64 09/19/17 06:00 O2 Sat by Pulse Oximetry (%) 97 09/18/17 22:00 Eyes: Yes: WNL, Conjunctiva Clear, EOM Intact HENT: Yes: WNL, Atraumatic, Normocephalic Neck: Yes: WNL, Supple, Trachea Midline Cardiovascular: Yes: WNL, Regular Rate and Rhythm Respiratory: Yes: WNL, Regular, CTA Bilaterally Gastrointestinal: Yes: WNL, Normal Bowel Sounds Genitourinary: Yes: WNL Musculoskeletal: Yes: WNL Extremities: Yes: WNL Edema: Yes Integumentary: Yes: WNL Neurological: Yes: WNL, Alert, Oriented ...Motor Strength: WNL Psychiatric: Yes: WNL Labs: CBC, BMP 09/19/17 06:20 INR, PTT INR 1.14 (0.82-1.09) 09/12/17 22:53 Fibrinogen 452.0 mg/dL (238-498) 09/17/17 05:30 Problem List - Problems (1) Dehydration Code(s): E86.0 - DEHYDRATION (2) Femoral vein, deep venous thrombosis Code(s): I82.419 - ACUTE EMBOLISM AND THROMBOSIS OF UNSPECIFIED FEMORAL VEIN Qualifiers: Chronicity: acute Laterality: left Qualified Code(s): I82.412 - Acute embolism and thrombosis of left femoral vein (3) HTN (hypertension) Code(s): I10 - ESSENTIAL (PRIMARY) HYPERTENSION (4) Hypomagnesemia Code(s): E83.42 - HYPOMAGNESEMIA (5) T2DM (type 2 diabetes mellitus) Code(s): E11.9 - TYPE 2 DIABETES MELLITUS WITHOUT COMPLICATIONS (6) Benign positional vertigo Code(s): H81.10 - BENIGN PAROXYSMAL VERTIGO, UNSPECIFIED EAR (7) Bleeding Code(s): R58 - HEMORRHAGE, NOT ELSEWHERE CLASSIFIED Assessment/Plan POD4 with vascular surgery and tpa infussion for her extensive DVT/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
[2017-09-19 08:42] LABS: CHLORIDE 102 mmol/L (98-107); POTASSIUM 4.6 mmol/L (3.5-5.1); SODIUM 138 mmol/L (136-145)
[2017-09-19 08:47] LABS: ANION GAP 11 (8-16); BLOOD UREA NITROGEN 37 mg/dL (7-18); CALCIUM 8.5 mg/dL (8.5-10.1); CO2 25 mmol/L (21-32); CREATININE 1.8 mg/dL (0.55-1.02); GLUCOSE,RANDOM 201 mg/dL (74-106)
[2017-09-19] MEDS: LORATADINE 10 MG TABLET PO SCH (09:41)
[2017-09-19] MEDS: PANTOPRAZOLE 40 MG TABLET (FP) PO SCH (09:41)
[2017-09-19] MEDS: DOCUSATE SODIUM 100 MG CAPSULE (FP) PO SCH ×2 (09:41→22:20)
[2017-09-19] MEDS: POLYETHYLENE GLYCOL 3350 119 GM BTL PO SCH ×3 (09:41→22:20)
[2017-09-19] MEDS: predniSONE 10 MG TABLET (UD) PO SCH (09:42)
[2017-09-19 11:32] LABS: HEMATOCRIT 26.7 % (32.4-45.2); HEMOGLOBIN 9.2 GM/dL (10.7-15.3); MCH 33.2 pg (25.7-33.7); MCHC 34.3 g/dl (32.0-36.0); MEAN CELL VOLUME 96.7 fl (80-96); MEAN PLT VOLUME 8.2 fl (7.5-11.1); PLATELET COUNT 222 K/MM3 (134-434); RBC 2.77 M/mm3 (3.60-5.2); RDW 13.6 % (11.6-15.6); WHITE BLOOD COUNT 9.1 K/mm3 (4.0-10.0)
--- NOTE | 2017-09-19 13:45 | PN ---
Progress Note (short form) - Note Progress Note: Overall better. No CP or SOB. Some mobility issues. Intake & Output 09/16/17 09/17/17 09/18/17 09/19/17 23:59 23:59 23:59 23:59 Intake Total 1230 1860 240 700 Output Total 1200 8170 069 6246 Balance 30 160 -610 -300 Weight 194 lb 0.108 oz 196 lb Last Vital Signs Temp Pulse Resp BP Pulse Ox 97.5 F L 81 18 135/71 97 09/19/17 09:10 09/19/17 09:10 09/19/17 09:10 09/19/17 09:10 09/19/17 09:00 Active Medications Acetaminophen (Tylenol -) 650 mg PO Q8H PRN PRN Reason: FEVER Last Admin: 09/17/17 17:50 Dose: 650 mg Apixaban (Eliquis -) 10 mg PO BID [facility] Stop: 09/25/17 11:29 Last Admin: 09/19/17 09:41 Dose: 10 mg Docusate Sodium (Colace -) 100 mg PO BID [facility] Last Admin: 09/19/17 09:41 Dose: 100 mg Sodium Chloride (1/2 Normal Saline) 1,000 mls @ 50 mls/hr IV ASDIR [facility] Stop: 09/19/17 17:04 Last Admin: 09/18/17 18:05 Dose: 50 mls/hr Insulin Aspart (Novolog Vial Sliding Scale -) 1 vial SQ TIDAC [facility]; Protocol Last Admin: 09/19/17 13:06 Dose: 4 units Loratadine (Claritin -) 10 mg PO DAILY [facility] Last Admin: 09/19/17 09:41 Dose: 10 mg Metoprolol Succinate (Toprol Xl -) 100 mg PO DAILY [facility] Last Admin: 09/19/17 09:41 Dose: 100 mg Ondansetron HCl (Zofran Injection) 4 mg IVPUSH Q6H PRN PRN Reason: NAUSEA AND/OR VOMITING Pantoprazole Sodium (Protonix -) 40 mg PO DAILY [facility] Last Admin: 09/19/17 09:41 Dose: 40 mg Polyethylene Glycol (Miralax (For Daily Use) -) 17 gm PO BID [facility] Last Admin: 09/19/17 09:46 Dose: Not Given Prednisone (Deltasone -) 30 mg PO DAILY [facility] Stop: 09/21/17 12:14 Last Admin: 09/19/17 09:42 Dose: 30 mg GENERAL: Awake, alert, and oriented, NAD EYES:conjunctiva clear. EARS, NOSE, THROAT: Moist mucous membranes. LUNGS: clear to auscultation bilaterally. No wheezes. No accessory muscle use. HEART: irregular rate, normal S1 and S2 without murmur, ABDOMEN: Soft, NT, ND, (+) BS UPPER EXTREMITIES: 2+ pulses, warm, well-perfused.. LOWER EXTREMITIES: 2+ pulses, warm, well-perfused. Left leg swollen. NEUROLOGICAL: Non-focal PSYCHIATRIC: Cooperative. SKIN: Warm, dry Laboratory Results - last 24 hr 09/18/17 09/18/17 09/18/17 08:00 17:32 20:45 WBC RBC Hgb Hct MCV MCH MCHC RDW Plt Count MPV PTT (Actin FS) Sodium Potassium Chloride Carbon Dioxide Anion Gap BUN Creatinine Creat Clearance w eGFR POC Glucometer 129 Random Glucose Calcium Urine Color Ltyellow Urine Appearance Clear Urine pH 6.0 Ur Specific [place] 1.009 Urine Protein Negative Urine Glucose (UA) Negative Urine Ketones Negative Urine Blood 3+ H Urine Nitrite Negative Urine Bilirubin Negative Urine Urobilinogen Negative Ur Leukocyte Esterase Negative Urine WBC (Auto) 4 Urine RBC (Auto) 11 Ur Epithelial Cells Rare Urine Mucus Rare Ur Random Sodium 100 Ur Random Potassium 17.7 Ur Random Chloride 107 Urine Creatinine 09/18/17 09/18/17 09/19/17 20:45 20:45 06:00 WBC RBC Hgb Hct MCV MCH MCHC RDW Plt Count MPV PTT (Actin FS) Sodium Potassium Chloride Carbon Dioxide Anion Gap BUN Creatinine Creat Clearance w eGFR POC Glucometer 219 Random Glucose Calcium Urine Color Urine Appearance Urine pH Ur Specific [place] Urine Protein Urine Glucose (UA) Urine Ketones Urine Blood Urine Nitrite Urine Bilirubin Urine Urobilinogen Ur Leukocyte Esterase Urine WBC (Auto) Urine RBC (Auto) Ur Epithelial Cells Urine Mucus Ur Random Sodium 101 Ur Random Potassium Ur Random Chloride Urine Creatinine 38.2 09/19/17 09/19/17 09/19/17 06:20 06:20 06:20 WBC 7.5 RBC 2.79 L Hgb 9.3 L Hct 27.1 L MCV 96.9 H MCH 33.4 MCHC 34.5 RDW 13.4 Plt Count 221 MPV 8.3 PTT (Actin FS) 28.1 Sodium 138 Potassium 4.6 Chloride 102 Carbon Dioxide 25 Anion Gap 11 BUN 37 H Creatinine 1.8 H Creat Clearance w eGFR 26.81 POC Glucometer Random Glucose 201 H Calcium 8.5 Urine Color Urine Appearance Urine pH Ur Specific [place] Urine Protein Urine Glucose (UA) Urine Ketones Urine Blood Urine Nitrite Urine Bilirubin Urine Urobilinogen Ur Leukocyte Esterase Urine WBC (Auto) Urine RBC (Auto) Ur Epithelial Cells Urine Mucus Ur Random Sodium Ur Random Potassium Ur Random Chloride Urine Creatinine 09/19/17 09/19/17 08:30 13:01 WBC 9.1 RBC 2.77 L Hgb 9.2 L Hct 26.7 L MCV 96.7 H MCH 33.2 MCHC 34.3 RDW 13.6 Plt Count 222 MPV 8.2 PTT (Actin FS) Sodium Potassium Chloride Carbon Dioxide Anion Gap BUN Creatinine Creat Clearance w eGFR POC Glucometer 230 Random Glucose Calcium Urine Color Urine Appearance Urine pH Ur Specific [place] Urine Protein Urine Glucose (UA) Urine Ketones Urine Blood Urine Nitrite Urine Bilirubin Urine Urobilinogen Ur Leukocyte Esterase Urine WBC (Auto) Urine RBC (Auto) Ur Epithelial Cells Urine Mucus Ur Random Sodium Ur Random Potassium Ur Random Chloride Urine Creatinine ASSESSMENT/PLAN: 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
[2017-09-20] MEDS: INSULIN SLIDING SCALE (NOVOLOG) 1 VIAL SQ SCH ×3 (06:18→17:23)
[2017-09-20 07:38] LABS: BASO % 0.2 % (0-2.0); EOS % 1.4 % (0-4.5); HEMATOCRIT 25.3 % (32.4-45.2); HEMOGLOBIN 8.7 GM/dL (10.7-15.3); LYMPH % 8.9 % (8-40); MCH 33.1 pg (25.7-33.7); MCHC 34.6 g/dl (32.0-36.0); MEAN CELL VOLUME 95.6 fl (80-96); MEAN PLT VOLUME 8.3 fl (7.5-11.1); MONO % 11.2 % (3.8-10.2); NEUT % 78.3 % (42.8-82.8); PLATELET COUNT 252 K/MM3 (134-434); RBC 2.64 M/mm3 (3.60-5.2); RDW 13.5 % (11.6-15.6); WHITE BLOOD COUNT 9.6 K/mm3 (4.0-10.0)
[2017-09-20 08:21] LABS: CHLORIDE 103 mmol/L (98-107); SODIUM 140 mmol/L (136-145)
[2017-09-20 08:28] LABS: ANION GAP 11 (8-16); BLOOD UREA NITROGEN 38 mg/dL (7-18); CALCIUM 8.7 mg/dL (8.5-10.1); CO2 26 mmol/L (21-32); CREATININE 1.7 mg/dL (0.55-1.02); GLUCOSE,RANDOM 132 mg/dL (74-106)
--- NOTE | 2017-09-20 08:42 | PN ---
Progress Note, Physician History of Present Illness: 82 year old woman with increasing left leg pain and swelling for several days. She came to ER when she couldn't walk. SCan shows extensive DVT of leg. She had a DVT in the same leg years ago and was treated with COumadin for several months. 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 Pt is currently POD1 with vascular surgery for her extensive DVT/thrombosis of her LLExt up to her IVC filter - Current Medication List Current Medications: Active Medications Acetaminophen (Tylenol -) 650 mg PO Q8H PRN PRN Reason: FEVER Last Admin: 09/17/17 17:50 Dose: 650 mg Apixaban (Eliquis -) 10 mg PO BID [facility] Stop: 09/25/17 11:29 Last Admin: 09/19/17 22:20 Dose: 10 mg Docusate Sodium (Colace -) 100 mg PO BID [facility] Last Admin: 09/19/17 22:20 Dose: 100 mg Insulin Aspart (Novolog Vial Sliding Scale -) 1 vial SQ TIDAC [facility]; Protocol Last Admin: 09/20/17 06:18 Dose: 2 units Loratadine (Claritin -) 10 mg PO DAILY [facility] Last Admin: 09/19/17 09:41 Dose: 10 mg Metoprolol Succinate (Toprol Xl -) 100 mg PO DAILY [facility] Last Admin: 09/19/17 09:41 Dose: 100 mg Ondansetron HCl (Zofran Injection) 4 mg IVPUSH Q6H PRN PRN Reason: NAUSEA AND/OR VOMITING Pantoprazole Sodium (Protonix -) 40 mg PO DAILY [facility] Last Admin: 09/19/17 09:41 Dose: 40 mg Polyethylene Glycol (Miralax (For Daily Use) -) 17 gm PO BID [facility] Last Admin: 09/19/17 22:20 Dose: 17 mg Prednisone (Deltasone -) 30 mg PO DAILY [facility] Stop: 09/21/17 12:14 Last Admin: 09/19/17 09:42 Dose: 30 mg - Objective Vital Signs: Vital Signs Temperature 97.9 F 09/20/17 05:00 Pulse Rate 72 09/20/17 05:00 Respiratory Rate 20 09/20/17 05:00 Blood Pressure 158/80 09/20/17 05:00 O2 Sat by Pulse Oximetry (%) 97 09/19/17 21:00 Eyes: Yes: WNL, Conjunctiva Clear, EOM Intact HENT: Yes: WNL, Atraumatic, Normocephalic Neck: Yes: WNL, Supple, Trachea Midline Cardiovascular: Yes: WNL, Regular Rate and Rhythm Respiratory: Yes: WNL, Regular, CTA Bilaterally Gastrointestinal: Yes: WNL, Normal Bowel Sounds Genitourinary: Yes: WNL Musculoskeletal: Yes: WNL Extremities: Yes: WNL Edema: Yes Integumentary: Yes: WNL Neurological: Yes: WNL, Alert, Oriented ...Motor Strength: WNL Psychiatric: Yes: WNL Labs: CBC, BMP 09/20/17 05:45 09/20/17 05:45 INR, PTT INR 1.14 (0.82-1.09) 09/12/17 22:53 Fibrinogen 452.0 mg/dL (238-498) 09/17/17 05:30 Problem List - Problems (1) Dehydration Code(s): E86.0 - DEHYDRATION (2) Femoral vein, deep venous thrombosis Code(s): I82.419 - ACUTE EMBOLISM AND THROMBOSIS OF UNSPECIFIED FEMORAL VEIN Qualifiers: Chronicity: acute Laterality: left Qualified Code(s): I82.412 - Acute embolism and thrombosis of left femoral vein (3) HTN (hypertension) Code(s): I10 - ESSENTIAL (PRIMARY) HYPERTENSION (4) Hypomagnesemia Code(s): E83.42 - HYPOMAGNESEMIA (5) T2DM (type 2 diabetes mellitus) Code(s): E11.9 - TYPE 2 DIABETES MELLITUS WITHOUT COMPLICATIONS (6) Benign positional vertigo Code(s): H81.10 - BENIGN PAROXYSMAL VERTIGO, UNSPECIFIED EAR (7) Bleeding Code(s): R58 - HEMORRHAGE, NOT ELSEWHERE CLASSIFIED Assessment/Plan POD4 with vascular surgery and tpa infussion for her extensive DVT/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
[2017-09-20] MEDS: LORATADINE 10 MG TABLET PO SCH (09:54)
[2017-09-20] MEDS: predniSONE 10 MG TABLET (UD) PO SCH (09:55)
[2017-09-20] MEDS: DOCUSATE SODIUM 100 MG CAPSULE (FP) PO SCH ×2 (09:55→22:04)
[2017-09-20] MEDS: APIXABAN 5 MG TABLET PO SCH ×2 (09:56→22:05)
[2017-09-20] MEDS: POLYETHYLENE GLYCOL 3350 119 GM BTL PO SCH ×2 (09:57→22:03)
[2017-09-20] MEDS: PANTOPRAZOLE 40 MG TABLET (FP) PO SCH (09:58)
--- NOTE | 2017-09-20 09:58 | PN ---
Progress Note, Physician Chief Complaint: Left LE and toe pain is improving History of Present Illness: 82F with HTN HLD DM2 p/w left leg swelling over past day. She has had difficulty walking as well since the afternoon. Has had a DVT in the same leg about 20 years ago, treated short term coumadin. recently went to [facility] about [address] 3 wks ago. s/p thrombectomy on thrombolysis - Current Medication List Current Medications: Active Medications Acetaminophen (Tylenol -) 650 mg PO Q8H PRN PRN Reason: FEVER Last Admin: 09/17/17 17:50 Dose: 650 mg Apixaban (Eliquis -) 10 mg PO BID [facility] Stop: 09/25/17 11:29 Last Admin: 09/19/17 22:20 Dose: 10 mg Docusate Sodium (Colace -) 100 mg PO BID [facility] Last Admin: 09/19/17 22:20 Dose: 100 mg Insulin Aspart (Novolog Vial Sliding Scale -) 1 vial SQ TIDAC [facility]; Protocol Last Admin: 09/20/17 06:18 Dose: 2 units Loratadine (Claritin -) 10 mg PO DAILY [facility] Last Admin: 09/19/17 09:41 Dose: 10 mg Metoprolol Succinate (Toprol Xl -) 100 mg PO DAILY [facility] Last Admin: 09/19/17 09:41 Dose: 100 mg Ondansetron HCl (Zofran Injection) 4 mg IVPUSH Q6H PRN PRN Reason: NAUSEA AND/OR VOMITING Pantoprazole Sodium (Protonix -) 40 mg PO DAILY [facility] Last Admin: 09/19/17 09:41 Dose: 40 mg Polyethylene Glycol (Miralax (For Daily Use) -) 17 gm PO BID [facility] Last Admin: 09/19/17 22:20 Dose: 17 mg Prednisone (Deltasone -) 30 mg PO DAILY [facility] Stop: 09/21/17 12:14 Last Admin: 09/19/17 09:42 Dose: 30 mg - Objective Vital Signs: Vital Signs Temperature 97.9 F 09/20/17 05:00 Pulse Rate 72 09/20/17 05:00 Respiratory Rate 20 09/20/17 05:00 Blood Pressure 158/80 09/20/17 05:00 O2 Sat by Pulse Oximetry (%) 97 09/19/17 21:00 Elderly F not in distress c/o Left LE Pain and swelling HEENT: Mm moist, o anemia, PERRLA EOMI NECK: No JVd No Bruit CHEST: CTA B/L CVS; S1S2 R no m/g/r ABD; No distention, non tender Bs + EXT: Left LE swelling and Tenderness s/p thrombectomy and thrombolysis, Left Toe pain is better Labs: CBC, BMP 09/20/17 05:45 09/20/17 05:45 INR, PTT INR 1.14 (0.82-1.09) 09/12/17 22:53 Fibrinogen 452.0 mg/dL (238-498) 09/17/17 05:30 Problem List - Problems (1) Femoral vein, deep venous thrombosis Assessment/Plan: Extensive DVt s/p Thrombectomy and thrombolysis and Iliac V stent on PO AC Code(s): I82.419 - ACUTE EMBOLISM AND THROMBOSIS OF UNSPECIFIED FEMORAL VEIN Qualifiers: Chronicity: acute Laterality: left Qualified Code(s): I82.412 - Acute embolism and thrombosis of left femoral vein (2) HTN (hypertension) Assessment/Plan: Well controlled cont home meds Code(s): I10 - ESSENTIAL (PRIMARY) HYPERTENSION (3) T2DM (type 2 diabetes mellitus) Assessment/Plan: Hold Metformin add Correction dose Lispro AC F/U HBa1C Code(s): E11.9 - TYPE 2 DIABETES MELLITUS WITHOUT COMPLICATIONS (4) PALAK (acute kidney injury) Assessment/Plan: Most likely NELLA F/U BMP Code(s): N17.9 - ACUTE KIDNEY FAILURE, UNSPECIFIED (5) Hematuria Assessment/Plan: Post Cathter now resolved Code(s): R31.9 - HEMATURIA, UNSPECIFIED (6) Gout Assessment/Plan: On Prednisone and Tylenol Code(s): M10.9 - GOUT, UNSPECIFIED Qualifiers: Gout site: foot Gout etiology: due to renal impairment Chronicity: acute Laterality: left Qualified Code(s): M10.372 - Gout due to renal impairment , left ankle and foot
--- NOTE | 2017-09-20 10:10 | EKG ---
Test Reason : Blood Pressure : / mmHG Vent. Rate : 080 BPM Atrial Rate : 080 BPM P-R Int : 192 ms QRS Dur : 082 ms QT Int : 418 ms P-R-T Axes : 061 -14 -22 degrees QTc Int : 482 ms SINUS RHYTHM WITH PREMATURE ATRIAL COMPLEXES NONSPECIFIC T WAVE ABNORMALITY PROLONGED QT ABNORMAL ECG WHEN COMPARED WITH ECG OF 15-SEP-2017 23:01, HI INTERVAL HAS INCREASED T WAVE INVERSION MORE EVIDENT IN INFERIOR LEADS Confirmed by HOLLY HENRY MD ([id number]) on 09/20/2017 10:10:17 AM Referred By: Vincent LOPEZ Confirmed By:HOLLY HENRY MD
--- NOTE | 2017-09-20 13:21 | PN ---
Progress Note (short form) - Note Progress Note: Overall better. No CP or SOB. No acute events overnight. Intake & Output 09/17/17 09/18/17 09/19/17 09/20/17 23:59 23:59 23:59 23:59 Intake Total 9224 604 0475 100 Output Total 2241 957 1819 Balance 160 -610 -600 100 Weight 196 lb Last Vital Signs Temp Pulse Resp BP Pulse Ox 97.9 F 72 20 158/80 97 09/20/17 05:00 09/20/17 05:00 09/20/17 05:00 09/20/17 05:00 09/19/17 21:00 Active Medications Acetaminophen (Tylenol -) 650 mg PO Q8H PRN PRN Reason: FEVER Last Admin: 09/17/17 17:50 Dose: 650 mg Apixaban (Eliquis -) 10 mg PO BID [facility] Stop: 09/25/17 11:29 Last Admin: 09/20/17 09:56 Dose: 10 mg Docusate Sodium (Colace -) 100 mg PO BID [facility] Last Admin: 09/20/17 09:55 Dose: 100 mg Insulin Aspart (Novolog Vial Sliding Scale -) 1 vial SQ TIDAC [facility]; Protocol Last Admin: 09/20/17 11:38 Dose: Not Given Loratadine (Claritin -) 10 mg PO DAILY [facility] Last Admin: 09/20/17 09:54 Dose: 10 mg Metoprolol Succinate (Toprol Xl -) 100 mg PO DAILY [facility] Last Admin: 09/20/17 09:58 Dose: 100 mg Ondansetron HCl (Zofran Injection) 4 mg IVPUSH Q6H PRN PRN Reason: NAUSEA AND/OR VOMITING Pantoprazole Sodium (Protonix -) 40 mg PO DAILY [facility] Last Admin: 09/20/17 09:58 Dose: 40 mg Polyethylene Glycol (Miralax (For Daily Use) -) 17 gm PO BID [facility] Last Admin: 09/20/17 09:57 Dose: 17 gm Prednisone (Deltasone -) 30 mg PO DAILY [facility] Stop: 09/21/17 12:14 Last Admin: 09/20/17 09:55 Dose: 30 mg GENERAL: Awake, alert, and oriented, NAD EYES:conjunctiva clear. EARS, NOSE, THROAT: Moist mucous membranes. LUNGS: clear to auscultation bilaterally. No wheezes. No accessory muscle use. HEART: irregular rate, normal S1 and S2 without murmur, ABDOMEN: Soft, NT, ND, (+) BS UPPER EXTREMITIES: 2+ pulses, warm, well-perfused.. LOWER EXTREMITIES: 2+ pulses, warm, well-perfused. Left leg less swollen. NEUROLOGICAL: Non-focal PSYCHIATRIC: Cooperative. SKIN: Warm, dry Laboratory Results - last 24 hr 09/19/17 09/20/17 09/20/17 17:38 05:30 05:45 WBC RBC Hgb Hct MCV MCH MCHC RDW Plt Count MPV Absolute Neuts (auto) Neutrophils % Neutrophils % (Manual) Lymphocytes % Lymphocytes % (Manual) Monocytes % Monocytes % (Manual) Eosinophils % Basophils % Nucleated RBC % Platelet Comment Polychromasia PTT (Actin FS) 26.3 Sodium Potassium Chloride Carbon Dioxide Anion Gap BUN Creatinine Creat Clearance w eGFR POC Glucometer 287 155 Random Glucose Calcium 09/20/17 09/20/17 09/20/17 05:45 05:45 11:37 WBC 9.6 RBC 2.64 L Hgb 8.7 L Hct 25.3 L MCV 95.6 MCH 33.1 MCHC 34.6 RDW 13.5 Plt Count 252 MPV 8.3 Absolute Neuts (auto) 7.5 Neutrophils % 78.3 Neutrophils % (Manual) 86.0 H Lymphocytes % 8.9 D Lymphocytes % (Manual) 6.0 L D Monocytes % 11.2 H Monocytes % (Manual) 8 Eosinophils % 1.4 Basophils % 0.2 Nucleated RBC % 0 Platelet Comment A Polychromasia 2+ PTT (Actin FS) Sodium 140 Potassium 4.0 Chloride 103 Carbon Dioxide 26 Anion Gap 11 BUN 38 H Creatinine 1.7 H Creat Clearance w eGFR 28.63 POC Glucometer 115 Random Glucose 132 H Calcium 8.7 ASSESSMENT/PLAN: 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
--- NOTE | 2017-09-20 20:45 | PN ---
Progress Note (short form) - Note Progress Note: 1. PALAK 2. DVT 3. nephrolithiasis 4. HTN 5. DM Current Medications Acetaminophen (Tylenol -) 650 mg PO Q8H PRN PRN Reason: FEVER Last Admin: 09/20/17 22:05 Dose: 650 mg Apixaban (Eliquis -) 10 mg PO BID [facility] Stop: 09/25/17 11:29 Last Admin: 09/20/17 22:05 Dose: 10 mg Docusate Sodium (Colace -) 100 mg PO BID [facility] Last Admin: 09/20/17 22:04 Dose: Not Given Insulin Aspart (Novolog Vial Sliding Scale -) 1 vial SQ TIDAC [facility]; Protocol Last Admin: 09/20/17 17:23 Dose: 8 units Loratadine (Claritin -) 10 mg PO DAILY [facility] Last Admin: 09/20/17 09:54 Dose: 10 mg Metoprolol Succinate (Toprol Xl -) 100 mg PO DAILY [facility] Last Admin: 09/20/17 09:58 Dose: 100 mg Ondansetron HCl (Zofran Injection) 4 mg IVPUSH Q6H PRN PRN Reason: NAUSEA AND/OR VOMITING Pantoprazole Sodium (Protonix -) 40 mg PO DAILY [facility] Last Admin: 09/20/17 09:58 Dose: 40 mg Polyethylene Glycol (Miralax (For Daily Use) -) 17 gm PO BID [facility] Last Admin: 09/20/17 22:03 Dose: Not Given Prednisone (Deltasone -) 30 mg PO DAILY [facility] Stop: 09/21/17 12:14 Last Admin: 09/20/17 09:55 Dose: 30 mg Last Vital Signs Temp Pulse Resp BP Pulse Ox 99.2 F 61 20 134/66 97 09/20/17 17:00 09/20/17 17:00 09/20/17 17:00 09/20/17 17:00 09/20/17 09:00 alert in nad hard of hearing Lungs clear heart reg Abd soft nontender ext no edema CBC, BMP 09/20/17 05:45 09/20/17 05:45 IMP- s/p palak ckd h/o dvt e/p radiocontrast study Plan- continue same rx
[2017-09-20] MEDS: ACETAMINOPHEN 325 MG TABLET (FP) PO PRN (22:05)
[2017-09-21] MEDS: INSULIN SLIDING SCALE (NOVOLOG) 1 VIAL SQ SCH ×2 (06:03→11:39)
[2017-09-21 06:30] LABS: HEMATOCRIT 26.2 % (32.4-45.2); HEMOGLOBIN 9.2 GM/dL (10.7-15.3); MCH 33.7 pg (25.7-33.7); MCHC 34.9 g/dl (32.0-36.0); MEAN CELL VOLUME 96.3 fl (80-96); PLATELET COUNT 287 K/MM3 (134-434); RBC 2.72 M/mm3 (3.60-5.2); RDW 13.8 % (11.6-15.6); WHITE BLOOD COUNT 10.4 K/mm3 (4.0-10.0)
--- NOTE | 2017-09-21 08:36 | PN ---
Progress Note (short form) - Note Progress Note: Feels well VSS Left leg swelling imporved. Foot warm Stable, s/p thrombolysis and stenting left iliac vein Eliquis Physical therapy Discharge planning. Problem List - Problems (1) Femoral vein, deep venous thrombosis Code(s): I82.419 - ACUTE EMBOLISM AND THROMBOSIS OF UNSPECIFIED FEMORAL VEIN Qualifiers: Chronicity: acute Laterality: left Qualified Code(s): I82.412 - Acute embolism and thrombosis of left femoral vein
[2017-09-21] MEDS: APIXABAN 5 MG TABLET PO SCH (09:29)
[2017-09-21] MEDS: PANTOPRAZOLE 40 MG TABLET (FP) PO SCH (09:29)
[2017-09-21] MEDS: predniSONE 10 MG TABLET (UD) PO SCH (09:29)
[2017-09-21] MEDS: DOCUSATE SODIUM 100 MG CAPSULE (FP) PO SCH (09:29)
[2017-09-21] MEDS: POLYETHYLENE GLYCOL 3350 119 GM BTL PO SCH (09:29)
[2017-09-21] MEDS: LORATADINE 10 MG TABLET PO SCH (09:29)
[2017-09-21 11:16] VITALS: BP 135/76; PULSE 79; TEMP 99.6
[2017-09-21 11:30] LABS: HEMATOCRIT 26.3 % (32.4-45.2); MCH 32.8 pg (25.7-33.7); MCHC 34.2 g/dl (32.0-36.0); MEAN PLT VOLUME 7.8 fl (7.5-11.1); PLATELET COUNT 282 K/MM3 (134-434); RBC 2.74 M/mm3 (3.60-5.2); RDW 13.7 % (11.6-15.6); WHITE BLOOD COUNT 11.7 K/mm3 (4.0-10.0)
[2017-09-21 11:50] VITALS: BMI 32.9
--- NOTE | 2017-09-21 12:37 | DS ---
Physical Examination Vital Signs: Vital Signs Temperature 37.6 C 09/21/17 09:00 Pulse Rate 79 09/21/17 09:00 Respiratory Rate 20 09/21/17 09:00 Blood Pressure 135/76 09/21/17 09:00 O2 Sat by Pulse Oximetry (%) 99 09/21/17 08:42 Constitutional: Yes: No Distress, Calm, Obese Cardiovascular: Yes: Regular Rate and Rhythm. No: Gallop, Murmur, Rub Respiratory: Yes: Regular, CTA Bilaterally. No: Rales, Rhonchi, Wheezes Gastrointestinal: Yes: Normal Bowel Sounds, Soft. No: Distention, Tenderness Extremities: Yes: WNL Edema: No Labs: CBC, BMP 09/21/17 11:14 09/20/17 05:45 Discharge Summary Reason For Visit: DEEP VEIN THROMBOSIS (DVT) OF FEMORAL VEIN Current Active Problems PALAK (acute kidney injury) (Acute) Dehydration (Acute) Femoral vein, deep venous thrombosis (Acute) Gout (Acute) HTN (hypertension) (Acute) Hematuria (Acute) Hypomagnesemia (Acute) T2DM (type 2 diabetes mellitus) (Acute) Hospital Course: (1) Femoral vein, deep venous thrombosis Code(s): I82.419 - ACUTE EMBOLISM AND THROMBOSIS OF UNSPECIFIED FEMORAL VEIN Qualifiers: Chronicity: acute Laterality: left Qualified Code(s): I82.412 - Acute embolism and thrombosis of left femoral vein (2) HTN (hypertension) Code(s): I10 - ESSENTIAL (PRIMARY) HYPERTENSION (3) T2DM (type 2 diabetes mellitus) Code(s): E11.9 - TYPE 2 DIABETES MELLITUS WITHOUT COMPLICATIONS (4) Hypomagnesemia Code(s): E83.42 - HYPOMAGNESEMIA (5) Gout Code(s): M10.9 - GOUT, UNSPECIFIED Qualifiers: Gout site: foot Gout etiology: due to renal impairment Chronicity: acute Laterality: left Qualified Code(s): M10.372 - Gout due to renal impairment , left ankle and foot Ms Bhat is a pleasant 82 year old female who comes in with a swollen LLE and found to have an extensive DVT. She was placed on a heparin gtt for anticoagulation and seen by Dr Dinero. She underwent thrombectomy without issue. She had elevation in her creatinine, most likely contrast induced nephropathy. She was seen by nephrology. Her ARB, HCTZ, and metformin were held. She will not be discharged on this, but will follow up with Dr Palacio to assess if can restart after bmp is checked as an outpatient. She also developed acute toe pain and had an elevated uric acid. She will be placed on a steroid taper and outpatient consult with Dr Moeller. Currently she is stable for discharge home with her daughter. 32 minutes spent in preparation of this discharge Condition: Good - Instructions Diet, Activity, Other Instructions: resume previous diet and activity. Referrals: Manjinder Moeller MD [Staff Physician] - Karlene Medrano MD [Staff Physician] - Nahum Palacio MD [Primary Care Provider] - Kevin Dinero MD [Staff Physician] - Disposition: VNS/HOME HEALTH CARE - Home Medications Comprehensive Discharge Medication List: Ambulatory Orders Meclizine HCl [Antivert -] 25 mg PO PRN 05/14/13 Omeprazole 40 mg PO DAILY 05/14/13 Trospium Chloride 20 mg PO BID 05/14/13 Metoprolol Succinate 100 mg PO DAILY 05/15/13 Apixaban [Eliquis -] 10 mg PO BID #60 tablet 09/21/17
--- NOTE | 2017-09-21 12:41 | PN ---
Progress Note, Physician History of Present Illness: 82 year old woman with increasing left leg pain and swelling for several days. She came to ER when she couldn't walk. SCan shows extensive DVT of leg. She had a DVT in the same leg years ago and was treated with COumadin for several months. No history of recent surgery or bleeding in GI, or [employer]. Pt is currently POD1 with vascular surgery for her extensive DVT/thrombosis of her LLExt up to her IVC filter - Current Medication List Current Medications: Active Medications Acetaminophen (Tylenol -) 650 mg PO Q8H PRN PRN Reason: FEVER Last Admin: 09/20/17 22:05 Dose: 650 mg Apixaban (Eliquis -) 10 mg PO BID [facility] Stop: 09/25/17 11:29 Last Admin: 09/21/17 09:29 Dose: 10 mg Docusate Sodium (Colace -) 100 mg PO BID [facility] Last Admin: 09/21/17 09:29 Dose: Not Given Insulin Aspart (Novolog Vial Sliding Scale -) 1 vial SQ TIDAC [facility]; Protocol Last Admin: 09/21/17 11:39 Dose: 2 units Loratadine (Claritin -) 10 mg PO DAILY [facility] Last Admin: 09/21/17 09:29 Dose: 10 mg Metoprolol Succinate (Toprol Xl -) 100 mg PO DAILY [facility] Last Admin: 09/21/17 09:29 Dose: 100 mg Ondansetron HCl (Zofran Injection) 4 mg IVPUSH Q6H PRN PRN Reason: NAUSEA AND/OR VOMITING Pantoprazole Sodium (Protonix -) 40 mg PO DAILY [facility] Last Admin: 09/21/17 09:29 Dose: 40 mg Polyethylene Glycol (Miralax (For Daily Use) -) 17 gm PO BID [facility] Last Admin: 09/21/17 09:29 Dose: Not Given - Objective Vital Signs: Vital Signs Temperature 99.6 F 09/21/17 09:00 Pulse Rate 79 09/21/17 09:00 Respiratory Rate 20 09/21/17 09:00 Blood Pressure 135/76 09/21/17 09:00 O2 Sat by Pulse Oximetry (%) 99 09/21/17 08:42 Eyes: Yes: WNL, Conjunctiva Clear, EOM Intact HENT: Yes: WNL, Atraumatic, Normocephalic Neck: Yes: WNL, Supple, Trachea Midline Cardiovascular: Yes: WNL, Regular Rate and Rhythm Respiratory: Yes: WNL, Regular, CTA Bilaterally Gastrointestinal: Yes: WNL, Normal Bowel Sounds Genitourinary: Yes: WNL Musculoskeletal: Yes: WNL Extremities: Yes: WNL Edema: Yes Integumentary: Yes: WNL Neurological: Yes: WNL, Alert, Oriented ...Motor Strength: WNL Psychiatric: Yes: WNL Labs: CBC, BMP 09/21/17 11:14 09/20/17 05:45 INR, PTT INR 1.14 (0.82-1.09) 09/12/17 22:53 Fibrinogen 452.0 mg/dL (238-498) 09/17/17 05:30 Problem List - Problems (1) Dehydration Code(s): E86.0 - DEHYDRATION (2) Femoral vein, deep venous thrombosis Code(s): I82.419 - ACUTE EMBOLISM AND THROMBOSIS OF UNSPECIFIED FEMORAL VEIN Qualifiers: Chronicity: acute Laterality: left Qualified Code(s): I82.412 - Acute embolism and thrombosis of left femoral vein (3) HTN (hypertension) Code(s): I10 - ESSENTIAL (PRIMARY) HYPERTENSION (4) Hypomagnesemia Code(s): E83.42 - HYPOMAGNESEMIA (5) T2DM (type 2 diabetes mellitus) Code(s): E11.9 - TYPE 2 DIABETES MELLITUS WITHOUT COMPLICATIONS (6) Benign positional vertigo Code(s): H81.10 - BENIGN PAROXYSMAL VERTIGO, UNSPECIFIED EAR (7) Bleeding Code(s): R58 - HEMORRHAGE, NOT ELSEWHERE CLASSIFIED Assessment/Plan POD4 with vascular surgery and tpa infussion for her extensive DVT/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
[2017-09-21] MEDS: ACETAMINOPHEN 325 MG TABLET (FP) PO PRN (14:02)
--- NOTE | 2017-09-21 14:31 | PN ---
Progress Note, Physician History of Present Illness: Pt seen and examined at bedside. Her daughter was at bedside. I discussed the ultrasound finding. Upon further questioning pt has been taking nsaids at home regularly before admission. - Current Medication List Current Medications: Active Medications Acetaminophen (Tylenol -) 650 mg PO Q8H PRN PRN Reason: FEVER Last Admin: 09/21/17 14:02 Dose: 650 mg Apixaban (Eliquis -) 10 mg PO BID [facility] Stop: 09/25/17 11:29 Last Admin: 09/21/17 09:29 Dose: 10 mg Docusate Sodium (Colace -) 100 mg PO BID [facility] Last Admin: 09/21/17 09:29 Dose: Not Given Insulin Aspart (Novolog Vial Sliding Scale -) 1 vial SQ TIDAC [facility]; Protocol Last Admin: 09/21/17 11:39 Dose: 2 units Loratadine (Claritin -) 10 mg PO DAILY [facility] Last Admin: 09/21/17 09:29 Dose: 10 mg Metoprolol Succinate (Toprol Xl -) 100 mg PO DAILY [facility] Last Admin: 09/21/17 09:29 Dose: 100 mg Ondansetron HCl (Zofran Injection) 4 mg IVPUSH Q6H PRN PRN Reason: NAUSEA AND/OR VOMITING Pantoprazole Sodium (Protonix -) 40 mg PO DAILY [facility] Last Admin: 09/21/17 09:29 Dose: 40 mg Polyethylene Glycol (Miralax (For Daily Use) -) 17 gm PO BID [facility] Last Admin: 09/21/17 09:29 Dose: Not Given - Objective Vital Signs: Vital Signs Temperature 99.6 F 09/21/17 09:00 Pulse Rate 79 09/21/17 09:00 Respiratory Rate 20 09/21/17 09:00 Blood Pressure 135/76 09/21/17 09:00 O2 Sat by Pulse Oximetry (%) 99 09/21/17 08:42 Constitutional: Yes: Calm Eyes: Yes: Conjunctiva Clear HENT: Yes: Atraumatic Neck: Yes: Supple Cardiovascular: Yes: S1, S2 Respiratory: Yes: CTA Bilaterally Genitourinary: Yes: WNL Edema: Yes Edema: LLE: Trace Neurological: Yes: Oriented Psychiatric: Yes: Oriented Labs: CBC, BMP 09/21/17 11:14 09/20/17 05:45 INR, PTT INR 1.14 (0.82-1.09) 09/12/17 22:53 Fibrinogen 452.0 mg/dL (238-498) 09/17/17 05:30 Problem List - Problems (1) PALAK (acute kidney injury) Code(s): N17.9 - ACUTE KIDNEY FAILURE, UNSPECIFIED (2) Femoral vein, deep venous thrombosis Code(s): I82.419 - ACUTE EMBOLISM AND THROMBOSIS OF UNSPECIFIED FEMORAL VEIN Qualifiers: Chronicity: acute Laterality: left Qualified Code(s): I82.412 - Acute embolism and thrombosis of left femoral vein (3) HTN (hypertension) Code(s): I10 - ESSENTIAL (PRIMARY) HYPERTENSION (4) T2DM (type 2 diabetes mellitus) Code(s): E11.9 - TYPE 2 DIABETES MELLITUS WITHOUT COMPLICATIONS Assessment/Plan Current Medications Generic Name Dose Route Start Last Admin Trade Name Freq PRN Reason Stop Dose Admin Acetaminophen 650 mg 09/17/17 15:40 09/21/17 14:02 Tylenol - PO 650 mg Q8H PRN Administration FEVER Apixaban 10 mg 09/18/17 11:30 09/21/17 09:29 Eliquis - PO 09/25/17 11:29 10 mg BID [facility] Administration Docusate Sodium 100 mg 09/18/17 13:30 09/21/17 09:29 Colace - PO Not Given BID [facility] Insulin Aspart 1 vial 09/17/17 16:30 09/21/17 11:39 Novolog Vial Sliding Scale - SQ 2 units TIDAC [facility] Administration Protocol Loratadine 10 mg 09/18/17 10:00 09/21/17 09:29 Claritin - PO 10 mg DAILY [facility] Administration Metoprolol Succinate 100 mg 09/18/17 10:00 09/21/17 09:29 Toprol Xl - PO 100 mg DAILY [facility] Administration Ondansetron HCl 4 mg 09/17/17 15:40 Zofran Injection IVPUSH Q6H PRN NAUSEA AND/OR VOMITING Pantoprazole Sodium 40 mg 09/18/17 10:00 09/21/17 09:29 Protonix - PO 40 mg DAILY [facility] Administration Polyethylene Glycol 17 gm 09/18/17 22:00 09/21/17 09:29 Miralax (For Daily Use) - PO Not Given BID [facility] Impression 1. PALAK 2. DVT 3. nephrolithiasis 4. HTN 5. DM 6. atrophic left kidney 7. CKD Plan - avoid nsaids - will need further outpt follow up and workup - discussed ultrasound results with pt and her daughter - bp stable, hold arb for now - will need urology follow up as outpt as well Dr Medrano
--- NOTE | 2017-09-27 14:24 | OP ---
DATE OF OPERATION: 09/15/2017 PROCEDURE: Venogram of the left leg with mechanical and pharmacologic thrombolysis and placement of thrombolysis catheter. PREOPERATIVE DIAGNOSIS: Thrombosis of the left femoral and iliac veins and distal inferior vena cava. POSTOPERATIVE DIAGNOSIS: Thrombosis of the left femoral and iliac veins and distal inferior vena cava. ANESTHESIA: Fractional. ANESTHESIOLOGIST: Pippa Mann MD OPERATIVE FINDINGS: Venography of the left leg revealed patent femoral vein to the level of the groin. The common femoral, iliac veins were occluded. A Jimi nitinol IVC filter was present just proximal to the confluence of the right and left iliac veins. This was also thrombosed. OPERATIVE PROCEDURE: The patient was brought to the operating room and placed in prone position with appropriate padding. Intravenous sedation was established. The back of the left knee was prepped with ChloraPrep. Using realtime duplex imaging, the left popliteal vein was identified. Lidocaine 1% was infiltrated in the skin over the vein and the vein was cannulated with a micropuncture needle. The needle was exchanged over a wire for a 5-[place] catheter and then the catheter was exchanged over the wire for an 8-[place] sheath. Venography was performed through the sheath, with the above-noted findings. An angled tip wire and catheter were then advanced proximally under fluoroscopic guidance into the common femoral vein. The wire and catheter were then carefully advanced proximally through the occluded iliac veins and through the IVC filter into the proximal vena cava, which was patent. Contrast was injected through the catheter and confirmed patency. Stiff wire was then replaced. A Zelante AngioJet catheter was then used to administer 10 mg of tPA into the thrombosed cava and iliac veins. This was done with a power pulse technique. The medication was left in situ for 30 minutes and then the catheter was used to perform suction mechanical thrombectomy of the length of the occluded vessels. A total of 240 mL of aspirate was obtained. Repeat imaging revealed some flow through the occluded segment. An EKOS thrombolysis catheter was then advanced, with coverage area of the entire segment of occluded vessels. The catheter was attached to the skin along with the sheath. Administration of tPA was then begun at 1 mg per hour using the EKOS radiofrequency system. The patient was returned to the supine position and was transported to the recovery room. Plans for repeat venogram the next day were made. ROSELIA MANDEL M.D. [id number]
--- NOTE | 2017-09-27 14:51 | OP ---
DATE OF OPERATION: 09/16/2017 PROCEDURE: Placement of intravascular stent of left common iliac vein. PREOPERATIVE DIAGNOSIS: Thrombosed left common iliac vein. POSTOPERATIVE DIAGNOSIS: Thrombosed left common iliac vein. ANESTHESIA: Fractional. ANESTHESIOLOGIST: Tristian Farfan MD OPERATIVE FINDINGS: Following overnight thrombolysis, the left femoral and iliac veins were patent. There was diffuse irregularity and narrowing of the common iliac vein with residual thrombotic material extending into the proximal common iliac vein and the right lateral wall of the IVC filter. OPERATIVE PROCEDURE: The patient was returned to the operating room from the ICU. She was placed in prone position and intravenous sedation was established. The posterior aspect of the left leg was prepped with ChloraPrep and the sheath prepped with Betadine solution. A wire was advanced through the EKOS catheter into the vena cava and the catheter was removed. Venography was then performed through the sheath, with the above-noted findings. Decision was made to place a stent in the common iliac vein. The sheath was then up-sized to 11-Citizen [place]. A 14 mm x 80 mm LifeStar stent was then advanced into the common iliac vein and deployed and post dilated with a 14-mm balloon. Repeat imaging revealed improved diameter and flow through the iliac vein. A balloon was used to gently dilate through the filter. The decision was made not to try to stent through the filter at this time due to the possibility of partial thrombosis of the right iliac vein, which could not be ascertained at this procedure. Therefore, the wire was removed. The sheath was removed and a [id number] suture of 3-0 nylon placed in the skin. Pressure was applied on the popliteal area for 5 minutes until bleeding ceased. Sterile dressing was applied. The patient was returned to the supine position and the leg was wrapped with Alvin bandage from foot to thigh. The patient was returned to the recovery room in stable condition. Chanel [id number]
== END 2017-09-21 15:13 | disposition home health service (06) | DRG 271 ==
LOC: JER 20:51 → JERBED 23:32 → J7W 09-13 01:45 → JICU 09-15 21:40 → J4W 09-17 16:46
PROVIDERS: ADMIT Internal Medicine; ATTEND Internal Medicine
PROC: 06CN0ZZ Extirpation of Matter from Left Femoral Vein, Open Approach (ICD-10-PCS; 2017-09-15)
PROC: 06C Lower Veins, Extirpation (ICD-10-PCS; principal; 2017-09-15 15:00)
PROC: 067 Lower Veins, Dilation (ICD-10-PCS; 2017-09-16)
DX: I82.412 Acute embolism and thrombosis of left femoral vein (principal); N17.9 Acute kidney failure, unspecified; I10 Essential (primary) hypertension; E11.9 Type 2 diabetes mellitus without complications; I82.422 Acute embolism and thrombosis of left iliac vein; N94.89 Other specified conditions associated with female genital organs and menstrual cycle; M10.372 Gout due to renal impairment, left ankle and foot; E78.5 Hyperlipidemia, unspecified; I12.9 Hypertensive chronic kidney disease with stage 1 through stage 4 chronic kidney disease, or unspecified chronic kidney disease; E11.22 Type 2 diabetes mellitus with diabetic chronic kidney disease; N18.9 Chronic kidney disease, unspecified; E86.0 Dehydration; R31.9 Hematuria, unspecified; E83.42 Hypomagnesemia; I44.0 Atrioventricular block, first degree
CPT/HCPCS: 36415; 71045-TC-FY; 74174-TC; 76000-TC-FY; 76775-TC; 76856-TC; 80048; 80053; 81003; 81015; 82272; 82436; 82570; 82962; 83036; 83735; 84100; 84133; 84300; 84550; 85025; 85027; 85379; 85384; 85610; 85730; 86850; 86900; 86901; 93005; 93010; 93306-TC; 93971-TC; 94760; 97116-GP; 97162-GP; 99282-25; J0131; J1644; J2997; J7030